=== PATIENT | female | born 1950 | race Caucasian/White ===

== ENCOUNTER 2018-09-24 13:25 | Emergency (ER) | payer OTHER, MEDICARE, SELFPAY ==
[2018-09-24 13:53] VITALS: BP 130/73; PULSE 62; RESP 16; TEMP 36.7; O2SAT 97; BMI 19.9
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
[2018-09-24 17:08] VITALS: BP 139/88; PULSE 55; RESP 14; O2SAT 97
== END 2018-09-24 18:07 | disposition home or self-care (01) ==
PROVIDERS: Emergency Provider Internal Medicine
DX: S13.4XXA Sprain of ligaments of cervical spine, initial encounter (principal); V49.40XA Driver injured in collision with unspecified motor vehicles in traffic accident, initial encounter
CPT/HCPCS: 72040; 99282; 99283

== ENCOUNTER → 2019-09-06 17:16 | Outpatient (ROUT) | payer MEDICARE, OTHER, SELFPAY ==
[2019-09-06 17:34] LABS: Alanine Aminotransferase 20 IU/L (<35); Albumin 4.4 g/dL (3.5-5.0); Albumin Globulin Ratio 1.4 (1.0-2.8); Alkaline Phosphatase 82 U/L (38-126); Aspartate Aminotransferase 31 IU/L (14-36); Bilirubin Total 0.5 mg/dL (0.2-1.3); Blood Urea Nitrogen 17 mg/dL (7-17); Calcium 9.6 mg/dL (8.4-10.2); Carbon Dioxide 30 mmol/L (22-32); Chloride 96 mmol/L (98-107); Cholesterol 212 mg/dL (140-199); Estimated Glomerular Filt Rate > 60.0 mL/min (>60); Globulin 3.1 g/dL (1.7-4.1); Glucose 87 mg/dL (80-110); HDL Cholesterol 103 mg/dL (40-60); HEMOLYSIS 23 (0-50); LDL Cholesterol Calculated 99 mg/dL (<100); Potassium 4.5 mmol/L (3.4-5.1); Sodium 133 mmol/L (137-145); Total Protein 7.5 g/dL (6.3-8.2); Triglycerides 48 mg/dL (35-150)
[2019-09-06 17:36] LABS: Hematocrit 41.2 % (36-46); Mean Corpuscular Hemoglobin 29.6 PG (26-34); Platelet Count 304 X10^3/uL (150-400); Red Blood Cell Count 4.73 X10^6/uL (4.0-5.2); White Blood Cell Count 3.3 X10^3/uL (4.5-11.0)
[2019-09-06 17:51] LABS: Vitamin D 25 Hydroxy (D3) 28.8 ng/mL (30.0-100.0)
[2019-09-06 18:04] LABS: TSH w/ Reflex to FT4 0.54 uIU/mL (0.47-4.68)
[2019-09-06 19:15] LABS: Neutrophils Absolute Manual 1782 /uL (3000-5900); RBC Morphology Normal Morphology; Total Cells Counted 100
== END ==
PROVIDERS: Visit Provider Internal Medicine
DX: Z13.220 Encounter for screening for lipoid disorders (principal); I10 Essential (primary) hypertension; R53.83 Other fatigue; E03.9 Hypothyroidism, unspecified; E55.9 Vitamin D deficiency, unspecified
CPT/HCPCS: 80053; 80061; 82306; 84443; 85025

== ENCOUNTER → 2019-10-19 13:51 | Outpatient (CLI) | payer MEDICARE, OTHER, SELFPAY ==
--- NOTE | 2019-10-19 | DI.RAD.S_ITS ---
PROCEDURE: XR CHEST 2V INDICATIONS: COUGH TECHNIQUE: 2 views of the chest were acquired. COMPARISON: None. FINDINGS: Surgical changes and devices: None. Lungs and pleura: Lungs are clear. No pleural effusions or pneumothorax. Mediastinum: Mediastinal contours are normal. Heart size is normal. Bones and chest wall: No suspicious bony abnormalities. Soft tissues appear unremarkable. IMPRESSION: Normal for age, source of current cough symptoms is not seen. Dictated by: Jame Still M.D. on 10/19/2019 at 15:37 Approved by: Jame Still M.D. on 10/19/2019 at 15:37
[2019-10-19 15:48] LABS: BUN Creatinine Ratio 26.7 (6-22); Blood Urea Nitrogen 16 mg/dL (7-17); Calcium 9.2 mg/dL (8.4-10.2); Carbon Dioxide 30 mmol/L (22-32); Chloride 95 mmol/L (98-107); Estimated Glomerular Filt Rate > 60.0 mL/min (>60); Glucose 89 mg/dL (80-110); HEMOLYSIS < 15 (0-50); Potassium 3.8 mmol/L (3.4-5.1); Sodium 134 mmol/L (137-145)
[2019-10-19 16:11] LABS: Free T4, Direct Thyroxine 1.26 ng/dL (0.78-2.19)
[2019-10-19 16:26] LABS: TSH w/ Reflex to FT4 1.26 uIU/mL (0.47-4.68)
[2019-10-19 17:22] LABS: Sodium Urine Random 45 mmol/L (30-90)
[2019-10-21 15:03] LABS: Triiodothyronine T3 Total 63 ng/dL (76-181)
[2019-10-22 08:29] LABS: Osmolality, Serum 278 mOsm/kg (278-305)
[2019-10-22 08:30] LABS: Osmolality Urine 519 mOsm/kg (50-1200)
== END ==
PROVIDERS: PCP Internal Medicine; Referring Provider Internal Medicine; Visit Provider Internal Medicine
DX: R05 Cough (principal); E03.9 Hypothyroidism, unspecified; E87.1 Hypo-osmolality and hyponatremia
CPT/HCPCS: 36415; 71046; 80048; 83930; 83935; 84300; 84439; 84443; 84480

== ENCOUNTER → 2020-07-04 10:58 | Outpatient (CLI) | payer MEDICARE, OTHER, SELFPAY ==
--- NOTE | 2020-07-04 | DI.RAD.S_ITS ---
PROCEDURE: XR ANKLE RT MIN 3V INDICATIONS: RIGHT ANKLE PAIN TECHNIQUE: 3 views of the ankle were acquired. COMPARISON: None. FINDINGS: Bones: No fractures or dislocations. Ankle mortise is normally aligned. No suspicious bony lesions. Soft tissues: No tibiotalar joint effusion. Achilles tendon appears normal. IMPRESSION: No trauma found, source of current pain is not identified. Dictated by: Jame Still M.D. on 07/04/2020 at 11:56 Approved by: Jame Still M.D. on 07/04/2020 at 11:57
--- NOTE | 2020-07-04 | DI.RAD.S_ITS ---
PROCEDURE: XR FOOT RT MIN 3V INDICATIONS: RIGHT FOOT PAIN TECHNIQUE: 3 views of the foot were acquired. COMPARISON: None. FINDINGS: Bones: No fractures or dislocations. No suspicious bony lesions. There is near severe degenerative osteoarthritic change at the 1st MTP joint, where near [id number] articulation appears present. Soft tissues: No tibiotalar joint effusion. Achilles tendon appears normal. IMPRESSION: No trauma found. 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 Additional [id number] degeneration likely is present at the base of the 1st metatarsal. Dictated by: Jame Still M.D. on 07/04/2020 at 11:55 Approved by: Jame Still M.D. on 07/04/2020 at 11:56
== END ==
PROVIDERS: PCP Internal Medicine; Referring Provider Student in an Organized Health Care Education/Training Program; Visit Provider Student in an Organized Health Care Education/Training Program
DX: M25.571 Pain in right ankle and joints of right foot (principal); M19.071 Primary osteoarthritis, right ankle and foot
CPT/HCPCS: 73610; 73630

== ENCOUNTER → 2020-12-11 18:55 | Outpatient (ROUT) | payer MEDICARE, OTHER, SELFPAY ==
[2020-12-11 19:28] LABS: Alanine Aminotransferase 18 IU/L (<35); Albumin 4.4 g/dL (3.5-5.0); Albumin Globulin Ratio 1.7 (1.0-2.8); Alkaline Phosphatase 73 U/L (38-126); Aspartate Aminotransferase 31 IU/L (14-36); BUN Creatinine Ratio 28.1 (6-22); Bilirubin Total 0.2 mg/dL (0.2-1.3); Blood Urea Nitrogen 16 mg/dL (7-17); C-Reactive Protein Quant < 0.5 mg/dL (<1.0); Calcium 9.7 mg/dL (8.4-10.2); Carbon Dioxide 28 mmol/L (22-32); Chloride 95 mmol/L (98-107); Cholesterol 221 mg/dL (140-199); Estimated Glomerular Filt Rate > 60.0 mL/min (>60); Globulin 2.6 g/dL (1.7-4.1); Glucose 82 mg/dL (80-110); HEMOLYSIS < 15 (0-50); Potassium 3.9 mmol/L (3.4-5.1); Sodium 131 mmol/L (137-145); Triglycerides 50 mg/dL (35-150)
[2020-12-11 19:42] LABS: Erythrocyte Sedimentation Rate 2 MM/HR (0-20)
[2020-12-11 19:56] LABS: HDL Cholesterol 132 mg/dL (40-60); LDL Cholesterol Calculated 79 mg/dL (<100); Rheumatoid Factor < 8.6 IU/mL (<12.0)
[2020-12-11 20:01] LABS: Ferritin 40 ng/mL (11-264); TSH w/ Reflex to FT4 2.02 uIU/mL (0.47-4.68)
[2020-12-11 20:16] LABS: Vitamin B12 > 1000 pg/mL (239-931)
[2020-12-14 15:51] LABS: ANA Screen, IFA Negative (.)
== END ==
PROVIDERS: PCP Internal Medicine; Visit Provider Physician Assistant
DX: M13.0 Polyarthritis, unspecified (principal); I73.00 Raynaud's syndrome without gangrene; E55.9 Vitamin D deficiency, unspecified; I10 Essential (primary) hypertension; E30.9 Disorder of puberty, unspecified; E78.2 Mixed hyperlipidemia; R53.83 Other fatigue
CPT/HCPCS: 80053; 80061; 82306; 82607; 82728; 84443; 85651; 86038; 86140; 86430

== ENCOUNTER 2021-02-23 09:17 | Emergency (ER) | payer MEDICARE, OTHER, SELFPAY ==
[2021-02-23 09:40] VITALS: BP 169/90; PULSE 58; RESP 16; TEMP 36.4; O2SAT 100
[2021-02-23 13:15] VITALS: BP 145/73; PULSE 63; RESP 16; O2SAT 99
--- NOTE | 2021-02-23 13:54 | ED_ITS ---
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 There is no significant bruising or abrasion just laceration. She does not describe any loss of consciousness, there is no headache and she does not have any neck pain. There is no other injuries associated with the slide from bed this morning. Related Data Home Medications Medication Instructions Recorded Confirmed aripiprazole 5 mg tablet 5 mg PO DAILY 09/24/18 09/24/18 bupropion HCl 300 mg 24 hr tablet, 300 mg PO DAILY 09/24/18 09/24/18 extended release clonazepam 0.5 mg tablet 0.5 mg PO DAILY 09/24/18 09/24/18 fluoxetine 20 mg capsule 40 mg PO DAILY 09/24/18 09/24/18 levothyroxine 100 mcg tablet 100 mcg PO DAILY 09/24/18 09/24/18 Allergies Allergy/AdvReac Type Severity Reaction Status Date / Time No Known Drug Allergies Allergy Verified 09/24/18 13:57 Review of Systems Review of Systems Narrative: Remainder of complete review of systems is otherwise unremarkable except for that included in the HPI. Patient History Medical History Hip osteoarthritis Osteoarthritis, hand Scoliosis Surgical History History of toe surgery Family History Other Family history non-contributory Social History Smoking Status: Never smoker Smoking Status: Never smoker alcohol intake frequency: 0-2 drinks per day Substance Use Type: does not use Exam Narrative Exam Narrative: General: Alert appropriate in no acute distress HEENT: Clean laceration 3 cm in length into the muscle layer just to the medial aspect of the left brow. No nasal injury. Respiratory: Able to speak in full sentences, no obvious respiratory distress Skin: No obvious rashes, warm and dry Neurologic: Grossly intact no obvious asymmetries or abnormalities Psych: appropriate insight and affect, cooperative Initial Vital Signs Initial Vital Signs: Vital Signs Temperature 97.5 F L 02/23/21 09:40 Pulse Rate 58 L 02/23/21 09:40 Respiratory Rate 16 02/23/21 09:40 Blood Pressure 169/90 H 02/23/21 09:40 Pulse Oximetry 100 02/23/21 09:40 Procedures Laceration Repair Forehead laceration: Time of procedure: 14:00 Site: face Size (cm): 3 Description: linear Depth: involves muscle layer Amount of anesthesia used (mL): 8 Pre-repair: wound explored Skin layer closed with: other (Absorbable chromic, running subcuticular stitch) Size (cm): 4-0 Subcutaneous layer closed with: chromic gut Size: 4-0 Number of sutures: 1 Technique: other (Horizontal mattress ) Course Vital Signs Vital signs: Vital Signs - 8 hr 02/23/21 09:40 02/23/21 13:15 Temperature 97.5 F L Pulse Rate 58 L 63 Respiratory Rate 16 16 Blood Pressure 169/90 H 145/73 H Pulse Oximetry 100 99 MDM - Fall MDM Narrative Medical decision making narrative: Laceration to the forehead, medial aspect left eyebrow not involving the eyebrow. No other injuries or trauma. Closed without difficulty and Steri-Strips applied for cosmetic results. Patient is reassured. She is safe for home discharge Discharge Plan Departure Patient Disposition: Home Clinical Impression: Laceration of face Qualifiers: Encounter type: initial encounter Qualified Code(s): S01.81XA - Laceration without foreign body of other part of head, initial encounter Instructions: DI for Laceration Repair Activity Restrictions/Additional Instructions: Thank you for coming in today. The cut above your I was deep enough that it was very appropriate to be here. I used 1 deep suture to hold the muscle together and make the scarring as minimal as possible. There are dissolvable sutures just under the skin and then Steri- Strips on top so that the scar is is small as it can possibly be. It is very unusual for wounds in the middle of your face to become infected because there is so much blood flow. If you notice signs of infection with increasing redness, swelling, pain or drainage you do need to be seen and re- evaluated If you notice new or changing symptoms please feel free to return to the ER for further evaluation. It was wonderful to finally be you. Prescriptions: No Action clonazepam 0.5 mg tablet 0.5 mg PO DAILY RF: 0 levothyroxine 100 mcg tablet 100 mcg PO DAILY RF: 0 fluoxetine 20 mg capsule 40 mg PO DAILY RF: 0 aripiprazole 5 mg tablet 5 mg PO DAILY RF: 0 bupropion HCl 300 mg tablet extended release 24 hr 300 mg PO DAILY RF: 0 Referrals: Nida Humphrey PA-C [Primary Care Provider] -
== END 2021-02-23 14:10 | disposition home or self-care (01) ==
PROVIDERS: Emergency Provider Emergency Medicine; PCP Physician Assistant
DX: S01.81XA Laceration without foreign body of other part of head, initial encounter (principal); W22.03XA Walked into furniture, initial encounter
CPT/HCPCS: 12013; 99283

== ENCOUNTER → 2021-08-02 09:41 | Outpatient (CLI) | payer MEDICARE, OTHER, SELFPAY ==
[2021-08-02 11:49] LABS: COVID19 -Nasal RAPID Negative (Negative)
== END ==
PROVIDERS: PCP Physician Assistant; Visit Provider Physician Assistant
DX: Z20.822 Contact with and (suspected) exposure to COVID-19 (principal)
CPT/HCPCS: 87635; C9803

== ENCOUNTER → 2021-10-31 10:23 | Outpatient (CLI) | payer MEDICARE, OTHER, SELFPAY ==
--- NOTE | 2021-10-31 | DI.RAD.S_ITS ---
PROCEDURE: XR CHEST 2V INDICATIONS: Abnormal weight loss TECHNIQUE: 2 views of the chest were acquired. COMPARISON: [facility], CR, XR CHEST 2V, 10/19/2019, 14:21. FINDINGS: Surgical changes and devices: None. Lungs and pleura: Lungs are clear. No pleural effusions or pneumothorax. Mediastinum: Mediastinal contours are normal. Heart size is normal. Bones and chest wall: Dextroscoliosis of the thoracolumbar spine is seen. No suspicious bony abnormalities. Soft tissues appear unremarkable. IMPRESSION: No acute cardiopulmonary abnormality. Dictated by: Regulo Carroll M.D. on 10/31/2021 at 16:22 Approved by: Regulo Carroll M.D. on 10/31/2021 at 16:23
== END ==
PROVIDERS: PCP Physician Assistant; Referring Provider Physician Assistant; Visit Provider Physician Assistant
DX: R63.4 Abnormal weight loss (principal)
CPT/HCPCS: 71046

== ENCOUNTER → 2021-11-12 08:08 | Outpatient (CLI) | payer MEDICARE, OTHER, SELFPAY ==
--- NOTE | 2021-11-12 | DI.MG.S_ITS ---
BILATERAL DIGITAL SCREENING MAMMOGRAM 3D/2D WITH CAD WITH AUGMENTATION: 11/12/2021 CLINICAL: Patient presents for routine screening. S/P bilateral augmentation. Comparison is made to exams dated: 10/13/2018 mammogram, 12/05/2016 mammogram, and 04/02/2016 mammogram - outside location. The tissue of both breasts is extremely dense, which lowers the sensitivity of mammography. Current study was also evaluated with a Computer Aided Detection (CAD) system. Bilateral breast implants are stable and intact. No significant masses, calcifications, or other findings are seen in either breast. There has been no significant interval change. IMPRESSION: NEGATIVE There is no mammographic evidence of malignancy. A 1 year screening mammogram is recommended. This exam was interpreted at Station ID: [id number]. NOTE: For mammograms, a report in lay terms will be sent to the patient. Approximately 15% of breast malignancies will not be visualized mammographically. In the management of a palpable breast mass, a negative mammogram must not discourage biopsy of a clinically suspicious lesion. Electronically Signed By: Cassidy washington/manoj:11/12/2021 14:49:23 letter sent: Normal Exam ACR BI-RADS Category 1: Negative [id number]
== END ==
PROVIDERS: PCP Physician Assistant; Referring Provider Physician Assistant; Visit Provider Physician Assistant
DX: Z12.31 Encounter for screening mammogram for malignant neoplasm of breast (principal); Z98.82 Breast implant status
CPT/HCPCS: 77063; 77067

== ENCOUNTER 2022-05-08 14:01 | Emergency (ER) | payer MEDICARE, OTHER, SELFPAY ==
[2022-05-08 14:20] VITALS: BP 171/81; PULSE 61; RESP 18; TEMP 36.6; O2SAT 100; BMI 19.5
--- NOTE | 2022-05-08 14:46 | DI.RAD.S_ITS ---
PROCEDURE: XR LUMBAR SPINE 2-3V INDICATIONS: fall TECHNIQUE: 3 views of the lumbar spine were acquired. COMPARISON: None. FINDINGS: Bones: 5 [id number] vertebrae are present. There is mild rightward curvature of lumbar spine centered at L3 level. Straightening of normal lumbar lordosis is seen. 4 millimeter retrolisthesis of L2 on L3 and L3 on L4 is seen. Degenerative endplate changes are noted throughout lumbar spine more prominent at L4-5 level. No vertebral body compression fractures. No suspicious bony lesions. Soft tissues: Overlying bowel gas pattern is normal. No suspicious soft tissue calcifications. IMPRESSION: Degenerative disc disease throughout lumbar spine. No acute compression fracture. Grade 1 retrolisthesis at L2-3 and L3-4 levels. Dictated by: Marquise Marcus M.D. on 05/08/2022 at 15:25 Approved by: Marquise Marcus M.D. on 05/08/2022 at 15:25
--- NOTE | 2022-05-08 15:58 | ED_ITS ---
HPI - Back Pain/Injury <ELOISE Duffy - Last Filed: 05/08/22 20:31> General Chief Complaint: Back Pain/Injury Stated Complaint: Pain in tailbone/buttocks/legs- ref by PT Time Seen by Provider: 05/08/22 14:44 Source: patient History of Present Illness HPI Narrative: This is a 71-year-old female presents to the emergency department with worsening low back pain and bilateral upper leg thigh spasms at night since a fall on 04/23/2022. Patient states that her physical therapist alma at [facility] recommended that she come in for evaluation. Patient denies any weakness but she states that she has muscle spasms in the anterior thighs bilaterally, denies any point tenderness along her lumbar spine, denies any saddle anesthesia, denies any incontinence which is new or new sensation changes. Related Data Home Medications Medication Instructions Recorded Confirmed aripiprazole 5 mg tablet 5 mg PO DAILY 09/24/18 09/24/18 bupropion HCl 300 mg 24 hr tablet, 300 mg PO DAILY 09/24/18 09/24/18 extended release clonazepam 0.5 mg tablet 0.5 mg PO DAILY 09/24/18 09/24/18 fluoxetine 20 mg capsule 40 mg PO DAILY 09/24/18 05/08/22 levothyroxine 100 mcg tablet 100 mcg PO DAILY 09/24/18 05/08/22 lisinopril 20 mg tablet mg 05/08/22 modafinil 100 mg tablet mg 05/08/22 Previous Rx's Medication Instructions Recorded diclofenac sodium 1 % topical gel 2 g topical QID PRN pain #100 grams 05/08/22 hydrocodone 5 mg-acetaminophen 325 1 tab PO BID PRN pain #10 tabs 05/08/22 mg tablet methocarbamol 500 mg tablet 500 mg PO BEDTIME #20 tabs 05/08/22 Allergies Allergy/AdvReac Type Severity Reaction Status Date / Time No Known Drug Allergies Allergy Verified 05/08/22 14:44 Review of Systems <ELOISE Duffy - Last Filed: 05/08/22 20:31> Review of Systems Narrative: Review of systems is negative for acute abnormalities unless otherwise noted in HPI Patient History <ELOISE Duffy - Last Filed: 05/08/22 20:31> Medical History Hip osteoarthritis Osteoarthritis, hand Scoliosis Surgical History History of toe surgery Family History Other Family history non-contributory Social History Smoking Status: Never smoker Smoking Status: Never smoker alcohol intake frequency: 0-2 drinks per day Substance Use Type: does not use Exam <ELOISE Duffy - Last Filed: 05/08/22 20:31> Narrative Exam Narrative: Reviewed vitals signs and nursing notes. General: cooperative, comfortable, in no acute distress, well groomed afebrile, HEENT: symmetrical facial expressions, moist mucous membranes Cardiovascular: regular rate and rhythm, no peripheral edema, warm extremities Respiratory: normal effort, able to speak in complete sentences, without wheezing, stridor, or abnormal breath sounds. No retractions or tachypnea. GI: abdomen soft, nontender to palpation, nondistended, without masses, rebound tenderness or exquisite tenderness with exam. MSK: moves all extremities, neurovascularly intact, no weakness, normal tone, left leg lift elicits anterior thigh pain in the left leg, right leg lift elicits anterior right thigh pain. No point tenderness along lumbar spine, sensation to lower extremities is equal bilaterally, without weakness Skin: brisk capillary refill, without pallor or erythema Neuro: normal speech and cognition, A&O x3, ambulatory, clear speech Psych: mental status is grossly normal, congruent mood, normal affect, pleasant and cooperative Initial Vital Signs Initial Vital Signs: Vital Signs Temperature 98 F 05/08/22 14:20 Pulse Rate 61 05/08/22 14:20 Respiratory Rate 18 05/08/22 14:20 Blood Pressure 171/81 H 05/08/22 14:20 Pulse Oximetry 100 05/08/22 14:20 Oxygen Delivery Method 05/08/22 14:20 <Anastasiya Ramirez DO - Last Filed: 05/13/22 07:29> Initial Vital Signs Initial Vital Signs: Vital Signs Temperature 98 F 05/08/22 14:20 Pulse Rate 61 05/08/22 14:20 Respiratory Rate 18 05/08/22 14:20 Blood Pressure 171/81 H 05/08/22 14:20 Pulse Oximetry 100 05/08/22 14:20 Oxygen Delivery Method 05/08/22 14:20 Course <ELOISE Duffy - Last Filed: 05/08/22 20:31> Orders Ordered: Discontinued Medications Hydrocodone Bitart/Acetaminophen (Hydrocodone/Acet 5/325 Tablet) 1 tab PO NOW ONE Stop: 05/08/22 16:01 Last Admin: 05/08/22 16:24 Dose: Not Given Documented By: CAROLYN Diazepam (Diazepam 2 Mg Tablet) 2 mg PO NOW ONE Stop: 05/08/22 16:02 Last Admin: 05/08/22 16:24 Dose: Not Given Documented By: CAROLYN Ketorolac Tromethamine (Ketorolac 30 Mg/Ml Vial) 15 mg IM NOW ONE Stop: 05/08/22 16:01 Last Admin: 05/08/22 16:23 Dose: 15 mg Documented By: CAROLYN Lidocaine (Lidocaine Patch 1 Each Adh..Patch) 1 each TOP NOW ONE Stop: 05/08/22 16:01 Last Admin: 05/08/22 16:23 Dose: 1 each Documented By: CAROLYN Vital Signs Vital signs: Vital Signs - 8 hr 05/08/22 14:20 05/08/22 16:45 Temperature 98 F Pulse Rate 61 65 Respiratory Rate 18 17 Blood Pressure 171/81 H 156/76 H Pulse Oximetry 100 98 Oxygen Delivery Method Room Air Room Air <Anastasiya Ramirez DO - Last Filed: 05/13/22 07:29> Orders Ordered: Discontinued Medications Hydrocodone Bitart/Acetaminophen (Hydrocodone/Acet 5/325 Tablet) 1 tab PO NOW ONE Stop: 05/08/22 16:01 Last Admin: 05/08/22 16:24 Dose: Not Given Documented By: CAROLYN Diazepam (Diazepam 2 Mg Tablet) 2 mg PO NOW ONE Stop: 05/08/22 16:02 Last Admin: 05/08/22 16:24 Dose: Not Given Documented By: CAROLYN Ketorolac Tromethamine (Ketorolac 30 Mg/Ml Vial) 15 mg IM NOW ONE Stop: 05/08/22 16:01 Last Admin: 05/08/22 16:23 Dose: 15 mg Documented By: CAROLYN Lidocaine (Lidocaine Patch 1 Each Adh..Patch) 1 each TOP NOW ONE Stop: 05/08/22 16:01 Last Admin: 05/08/22 16:23 Dose: 1 each Documented By: CAROLYN Vital Signs Vital signs: Vital Signs - 8 hr 05/08/22 14:20 05/08/22 16:45 Temperature 98 F Pulse Rate 61 65 Respiratory Rate 18 17 Blood Pressure 171/81 H 156/76 H Pulse Oximetry 100 98 Oxygen Delivery Method Room Air Room Air [facility] - Back Pain/Injury <Samanta Gallo, [facility] - Last Filed: 05/08/22 20:31> Imaging Data Lumbar XR: Radiologist's Impression: PROCEDURE:? XR LUMBAR SPINE 2-3V ? INDICATIONS:? fall ? TECHNIQUE:? 3 views of the lumbar spine were acquired.? ? COMPARISON:? None. ? FINDINGS:? ? Bones:? 5 [id number] vertebrae are present.? There is mild rightward curvature of lumbar spine centered at L3 level.? Straightening of normal lumbar lordosis is seen.? 4 millimeter retrolisthesis of L2 on L3 and L3 on L4 is seen.? Degenerative endplate changes are noted throughout lumbar spine more prominent at L4-5 level.? No vertebral body compression fractures.? No suspicious bony lesions.? ? Soft tissues:? Overlying bowel gas pattern is normal.? No suspicious soft tissue calcifications.? ? ? IMPRESSION:? Degenerative disc disease throughout lumbar spine.? No acute compression fracture.? Grade 1 retrolisthesis at L2-3 and L3-4 levels. ? ? Dictated by: Marquise Marcus M.D. on 05/08/2022 at 15:25 ? ? Approved by: Marquise Marcus M.D. on 05/08/2022 at 15:25 ? [facility] Narrative Medical decision making narrative: This is a 71-year-old female presents to the emergency department with worsening low back pain, radiation to bilateral hip pain and has a history of right hip arthroplasty. Patient had a fall onto her buttocks on 04/23/22 and presents today with pain elicited with left leg lift to her anterior left thigh and right leg lift illicits right anterior thigh pain. She denies any saddle anesthesia, muscle weakness in her lower extremities, new incontinence, point tenderness along her lumbar spine to palpation. Her x-ray of lumbar spine shows degenerative disc disease throughout lumbar spine with out compression fracture, grade 1 retrolisthesis at L2-3 and L3-4 levels. Patient has full flexion and extension of her bilateral hips, knees, dorsiflexion of her feet and toe extension with flexion without deficit. She denies numbness between her 1st and 2nd toe or the dorsum of her feet bilaterally. Patient was given Toradol, and a lidocaine patch in the emergency department. She declined her hydrocodone and diazepam due to driving. She was prescribed hydrocodone, ketorolac, methocarbamol as needed for her acute low back pain with radiculopathy. Encouraged her to follow-up at [facility] if she has worsening of her symptoms. I also encouraged her to avoid physical therapy until her symptoms improve and to not over exert herself in the near future. She will follow-up with alma Edwards in [place]. Given history and exam, suspect likely musculoskeletal etiology, they are nontoxic appearing with no overt risk factors for epidural hematoma or abscess. No overt evidence of critical cord compression and has a nonfocal neuro exam. Neurovascularly intact distally, no evidence of infection, peritoneal signs, hypertensive crisis, or abdominal pain with low suspicion for AAA. No weakness, incontinence, neurovascular or sensation changes, no concerning findings for caudal equina syndrome, lumbar fracture, without paresthesia, neuropathic pain, meningeal signs and fever. This could be a herniated disk, paraspinal or other muscle strain, ligamental injury, arthritic, nephrolithiasis/pyelonephritis, epidural abscess, chronic pain, and other diagnosis? considered less likely. Discharge Plan Departure Patient Disposition: Home Clinical Impression: Sciatica, Strain of lumbar region, Retrolisthesis of vertebrae, DDD (degenerative disc disease), lumbar, Fall Instructions: DI for Back Pain With Sciatica Activity Restrictions/Additional Instructions: *You have been diagnosed with a fall with exacerbation nerve root likely between L2 and 3 where you have mild retrolisthesis of your lumbar spine, and secondary inflammation due to degenerative disc disease of your lumbar spine/AKA arthritis. Please use topical anti-inflammatories or CBD cream whichever is most comfortable for you. Take half to 1 tab of methocarbamol at night or when you have muscle spasms. This will be helpful but can make you feel tired. Please do not take it at the same time as your clonazepam, you may take hydrocodone as needed throughout the day for severe pain, Toradol every 8 hours for inflammation and pain, take with food and water. This will be the most helpful and hopefully calm down the nerve root. Please follow-up with your primary care provider as needed for outpatient resources. You can call [facility] and set an appointment up for follow-up if your symptoms are ongoing beyond today. Retrolisthesis is sometimes called a slipped disc, imaging does not show any herniation of the disc but often times nerve roots can be irritated due to that as well. Hope you feel better soon, please come back for worsening, numbness of your groin, new incontinence, sensation changes in your lower legs or muscle weakness. Please wait 1 week before following up with Alma at [facility]. *What to do: *Please continue to take your regular medications as directed. [ x] New medication prescriptions sent to your pharmacy: [ ] [ ] New medication written as a paper prescription [ ] No new medications given *Please follow up with your primary care provider in 2-3 days, call for an appointment. Let them know you were seen in the Emergency Department and that we asked that you be seen for follow-up. We will electronically transmit a record of today's note if your PCP is in our system *If you do not have a primary care provider please contact [phone] to establish care with one of [facility] primary care providers. *Return to Emergency Department if you should have any new, worsening, or concerning symptoms, such as [fever greater than 101F, chills, worsening pain, persistent vomiting or other bothersome symptoms]. Prescriptions: New methocarbamol 500 mg tablet 500 mg PO BEDTIME Qty: 20 0RF hydrocodone-acetaminophen 5-325 mg tablet 1 tab PO BID PRN (Reason: pain) Qty: 10 0RF diclofenac sodium 1 % gel 2 g topical QID PRN (Reason: pain) Qty: 100 0RF Rx Instructions: to area of pain No Action lisinopril 20 mg Tablet modafinil 100 mg Tablet clonazepam 0.5 mg tablet 0.5 mg PO DAILY levothyroxine 100 mcg tablet 100 mcg PO DAILY fluoxetine 20 mg capsule 40 mg PO DAILY aripiprazole 5 mg tablet 5 mg PO DAILY bupropion HCl 300 mg tablet extended release 24 hr 300 mg PO DAILY Referrals: [facility] [Provider Group] JULIANNA Castaneda [Outside] Nida Humphrey PA-C [Primary Care Provider] - Visit Report Forms: Patient Portal/API <Anastasiya Ramirez DO - Last Filed: 05/13/22 07:29> Cosign ED Attending Bambi Attestation: I was immediately available in the department for consultation. Documentation has been reviewed. I agree with assessment and plan.
[2022-05-08] MEDS: LIDOCAINE PATCH 1 EACH ADH..PATCH TOP (16:23)
[2022-05-08] MEDS: KETOROLAC 30 MG/ML VIAL 15 MG IM (16:23)
[2022-05-08 16:45] VITALS: BP 156/76; PULSE 65; RESP 17; O2SAT 98
== END 2022-05-08 16:45 | disposition home or self-care (01) ==
PROVIDERS: Emergency Provider Nurse Practitioner Critical Care Medicine; PCP Physician Assistant
DX: S39.012A Strain of muscle, fascia and tendon of lower back, initial encounter (principal); M51.36 Other intervertebral disc degeneration, lumbar region; M54.41 Lumbago with sciatica, right side; M43.16 Spondylolisthesis, lumbar region; W19.XXXA Unspecified fall, initial encounter
CPT/HCPCS: 72100; 96372; 99283; 99284; J1885

== ENCOUNTER 2022-09-26 11:50 | Emergency (ER) | payer MEDICARE, OTHER, SELFPAY ==
[2022-09-26] VITALS (9 sets, daily range): BP systolic 123–157; BP diastolic 66–74; PULSE 52–64; RESP 16–31; TEMP 36.2; O2SAT 93–100; BMI 20.7
--- NOTE | 2022-09-26 11:54 | DI.RAD.S_ITS ---
PROCEDURE: XR CHEST 1V INDICATIONS: chest pain TECHNIQUE: One view of the chest was acquired. COMPARISON: [facility], CR, XR CHEST 2V, 10/31/2021, 11:39. FINDINGS: Surgical changes and devices: None. Lungs and pleura: Lungs are clear. No pleural effusions or pneumothorax. Mediastinum: Mediastinal contours appear normal. Heart size is normal. Bones and chest wall: No suspicious bony lesions. Overlying soft tissues appear unremarkable. IMPRESSION: No acute pulmonary process. Dictated by: Angeles Fonseca M.D. on 09/26/2022 at 12:24 Approved by: Angeles Fonseca M.D. on 09/26/2022 at 12:24
[2022-09-26 12:04] LABS: Add Manual Diff / Slide Review NO; Basophils Absolute Auto 0 /uL (0-100); Basophils Percent Auto 0.4 % (0-2); Eosinophils Absolute Auto 100 /uL (0-450); Eosinophils Percent Auto 1.5 % (2-4); Hematocrit 43.3 % (36-46); Hemoglobin 14.8 g/dL (12.0-16.0); Lymphocytes Absolute Auto 1300 /uL (1100-4500); Lymphocytes Percent Auto 35.4 % (25-40); Mean Corpuscular HGB Conc 34.2 % (30-36); Mean Corpuscular Hemoglobin 31.3 PG (26-34); Mean Corpuscular Volume 91.4 fL (80-100); Monocytes Absolute Auto 400 /uL (0-900); Monocytes Percent Auto 11.6 % (3-14); Neutrophils Absolute Auto 1800 /uL (1500-7000); Neutrophils Percent Auto 51.1 % (50-75); Platelet Count 275 X10^3/uL (150-400); Prothrombin Time 11.1 SECONDS (10.1-12.7); Red Blood Cell Count 4.74 X10^6/uL (4.0-5.2); Red Cell Distribution Width 12.5 % (11.6-14.8); White Blood Cell Count 3.6 X10^3/uL (4.5-11.0)
[2022-09-26 12:07] LABS: PTT Partial Thromboplastin Tim 24 SECONDS (26-36)
[2022-09-26 12:09] LABS: Alanine Aminotransferase 22 IU/L (<35); Albumin 4.9 g/dL (3.5-5.0); Albumin Globulin Ratio 1.6 (1.0-2.8); Alkaline Phosphatase 87 U/L (38-126); Aspartate Aminotransferase 28 IU/L (14-36); BUN Creatinine Ratio 17.5 (6-22); Bilirubin Total 0.7 mg/dL (0.2-1.3); Blood Urea Nitrogen 11 mg/dL (7-17); Calcium 9.8 mg/dL (8.4-10.2); Carbon Dioxide 23 mmol/L (22-32); Chloride 93 mmol/L (98-107); Creatine Kinase 63 U/L (30-135); Estimated Glomerular Filt Rate > 60 mL/min (>60); Globulin 3.1 g/dL (1.7-4.1); Glucose 110 mg/dL (80-110); HEMOLYSIS 25 (0-50); Lipase 149 U/L (23-300); Magnesium 1.7 mg/dL (1.6-2.3); Potassium 3.8 mmol/L (3.4-5.1); Sodium 131 mmol/L (137-145)
[2022-09-26 12:20] LABS: Troponin I < 0.012 ng/mL (0.01-0.034)
[2022-09-26] MEDS: clonazePAM 0.5 MG TABLET PO (13:00)
[2022-09-26] MEDS: LIDOCAINE PATCH 1 EACH ADH..PATCH TOP (13:02)
--- NOTE | 2022-09-26 13:02 | ED.CHESTPAIN ---
HPI - Chest Pain <Samanta Gallo [facility] - Last Filed: 09/26/22 17:21> General Chief Complaint: Chest Pain Stated Complaint: Chest/ Back pain Time Seen by Provider: 09/26/22 12:21 History of Present Illness HPI narrative: This 72-year-old female with history of hypothyroidism, depression, anxiety and chronic back pain who presents to the emergency department with her daughter/caregiver complaining of worsening low back pain with radiation to her right hip, states that she has had increased anxiety related to this pain. All of this pain started with a fall in April 2022 and she was seen in the emergency department that day by myself. Patient has not had recent antibiotics or recent steroids. Patient has been taking 40 mg of Prozac recently after this was titrated down from 64 patient feeling better, states that she took 62 days ago and felt more disoriented than usual that day. She denies dysuria but endorses urinary frequency and urgency. States that she voids frequently. She is having back spasms states that this pain goes into her right hip but does not go down her leg. She has a history. Of scoliosis, she is not anticoagulated. She is ambulatory at home and does use a walker as needed. She and her caregiver deny any recent fever, chills, nausea, vomiting, flank pain, stool changes, or other mental status changes. Patient states that she has been having to lie still more often because of her back pain. She is not currently in physical therapy, she has an appointment in October and that was the next available. She does not receive home health and states that she is not been doing her walking or staying as active as she used to. Denies any recent trauma Related Data Home Medications Medication Instructions Recorded Confirmed aripiprazole 5 mg tablet 5 mg PO DAILY 09/24/18 09/24/18 bupropion HCl 300 mg 24 hr tablet, 300 mg PO DAILY 09/24/18 09/24/18 extended release clonazepam 0.5 mg tablet 0.5 mg PO DAILY 09/24/18 09/24/18 fluoxetine 20 mg capsule 40 mg PO DAILY 09/24/18 05/08/22 levothyroxine 100 mcg tablet 100 mcg PO DAILY 09/24/18 05/08/22 lisinopril 20 mg tablet mg 05/08/22 modafinil 100 mg tablet mg 05/08/22 Previous Rx's Medication Instructions Recorded diclofenac sodium 1 % topical gel 2 g topical QID PRN pain #100 grams 05/08/22 hydrocodone 5 mg-acetaminophen 325 1 tab PO BID PRN pain #10 tabs 05/08/22 mg tablet methocarbamol 500 mg tablet 500 mg PO BEDTIME #20 tabs 05/08/22 aripiprazole 2 mg tablet (Abilify) 2 mg PO DAILY #30 tabs 09/26/22 hydrocodone 5 mg-acetaminophen 325 0.5 tab PO TID PRN pain #10 tabs 09/26/22 mg tablet ibuprofen 400 mg tablet 400 mg PO Q8H PRN fever or pain 09/26/22 #60 tabs lidocaine 5 % topical patch 1 patch topical DAILY #15 ea 09/26/22 (Lidoderm) methocarbamol 500 mg tablet 250 - 500 mg PO TID PRN spasm #20 09/26/22 tabs prednisone 20 mg tablet 20 mg PO DAILY #4 tabs 09/26/22 Allergies Allergy/AdvReac Type Severity Reaction Status Date / Time No Known Drug Allergies Allergy Verified 05/08/22 14:44 Review of Systems <ELOISE uDffy - Last Filed: 09/26/22 17:21> Review of Systems ROS Unobtainable: All systems reviewed & are unremarkable except as noted in HPI and below Patient History <ELOISE Duffy - Last Filed: 09/26/22 17:21> Medical History Hip osteoarthritis Osteoarthritis, hand Scoliosis Surgical History History of toe surgery Family History Other Family history non-contributory Social History Smoking Status: Never smoker Smoking Status: Never smoker alcohol intake frequency: 0-2 drinks per day Substance Use Type: does not use Exam <ELOISE Duffy - Last Filed: 09/26/22 17:21> Initial Vital Signs Initial Vital Signs: Vital Signs Pulse Rate 64 09/26/22 11:50 Pulse Oximetry 100 09/26/22 11:50 <Adonis Sow DO - Last Filed: 09/26/22 17:29> Initial Vital Signs Initial Vital Signs: Vital Signs Pulse Rate 64 09/26/22 11:50 Pulse Oximetry 100 09/26/22 11:50 Course <ELOISE Duffy - Last Filed: 09/26/22 17:21> Orders Ordered: ED Orders 09/26/22 11:50 Complete Blood Count AUTO DIFF Stat Comprehensive Metabolic Panel Stat Lipase Stat Magnesium Stat Partial Thromboplastin Time Stat Prothrombin Time INR Stat Troponin & CK Cardiac Panel Stat 09/26/22 11:54 XR chest 1V Stat 09/26/22 11:57 EKG-12 Lead Stat 09/26/22 13:25 Urine Microscopic Stat Discontinued Medications Acetaminophen (Acetaminophen 325 Mg Tablet) 650 mg PO NOW ONE Stop: 09/26/22 12:46 Last Admin: 09/26/22 13:04 Dose: Not Given Documented By: AT Hydrocodone Bitart/Acetaminophen (Hydrocodone/Acet 5/325 Tablet) 0.5 tab PO NOW ONE Stop: 09/26/22 12:46 Last Admin: 09/26/22 13:05 Dose: Not Given Documented By: AT Clonazepam (Clonazepam 0.5 Mg Tablet) 0.5 mg PO NOW ONE Stop: 09/26/22 12:40 Last Admin: 09/26/22 13:00 Dose: 0.5 mg Documented By: AT Ketorolac Tromethamine (Ketorolac 30 Mg/Ml Vial) 15 mg IV NOW ONE Stop: 09/26/22 12:40 Last Admin: 09/26/22 13:06 Dose: 15 mg Documented By: AT Lidocaine (Lidocaine Patch 1 Each Adh..Patch) 1 each TOP NOW ONE Stop: 09/26/22 12:40 Last Admin: 09/26/22 13:02 Dose: 1 each Documented By: AT Methocarbamol (Methocarbamol 500 Mg Tablet) 500 mg PO NOW ONE Stop: 09/26/22 12:40 Last Admin: 09/26/22 13:05 Dose: Not Given Documented By: KB Methocarbamol (Methocarbamol 500 Mg Tablet) 250 mg PO NOW ONE Stop: 09/26/22 12:40 Last Admin: 09/26/22 13:12 Dose: 250 mg Documented By: AT Prednisone (Prednisone 20 Mg Tablet) 20 mg PO NOW ONE Stop: 09/26/22 12:40 Last Admin: 09/26/22 13:12 Dose: 20 mg Documented By: AT Vital Signs Vital signs: Vital Signs - 8 hr 09/26/22 11:51 09/26/22 11:50 09/26/22 12:00 Temperature 97.2 F L Pulse Rate 64 64 Respiratory Rate 16 Blood Pressure 157/74 H 140/71 Pulse Oximetry 100 100 Oxygen Delivery Method Room Air 09/26/22 12:00 09/26/22 12:30 09/26/22 12:30 Temperature Pulse Rate 59 L 61 Respiratory Rate 25 H 22 Blood Pressure 144/66 H Pulse Oximetry 100 97 Oxygen Delivery Method Room Air 09/26/22 13:00 09/26/22 13:01 09/26/22 13:01 Temperature Pulse Rate 64 64 Respiratory Rate 31 H Blood Pressure 148/73 H Pulse Oximetry 99 99 Oxygen Delivery Method Room Air 09/26/22 13:27 09/26/22 13:27 09/26/22 13:30 Temperature Pulse Rate 52 L Respiratory Rate 21 Blood Pressure 137/67 135/70 Pulse Oximetry 98 Oxygen Delivery Method 09/26/22 13:30 09/26/22 14:00 09/26/22 14:00 Temperature Pulse Rate 54 L 53 L Respiratory Rate 30 H Blood Pressure 123/69 Pulse Oximetry 99 93 Oxygen Delivery Method Room Air <Adonis Sow DO - Last Filed: 09/26/22 17:29> Orders Ordered: ED Orders 09/26/22 11:50 Complete Blood Count AUTO DIFF Stat Comprehensive Metabolic Panel Stat Lipase Stat Magnesium Stat Partial Thromboplastin Time Stat Prothrombin Time INR Stat Troponin & CK Cardiac Panel Stat 09/26/22 11:54 XR chest 1V Stat 09/26/22 11:57 EKG-12 Lead Stat 09/26/22 13:25 Urine Microscopic Stat Discontinued Medications Acetaminophen (Acetaminophen 325 Mg Tablet) 650 mg PO NOW ONE Stop: 09/26/22 12:46 Last Admin: 09/26/22 13:04 Dose: Not Given Documented By: AT Hydrocodone Bitart/Acetaminophen (Hydrocodone/Acet 5/325 Tablet) 0.5 tab PO NOW ONE Stop: 09/26/22 12:46 Last Admin: 09/26/22 13:05 Dose: Not Given Documented By: AT Clonazepam (Clonazepam 0.5 Mg Tablet) 0.5 mg PO NOW ONE Stop: 09/26/22 12:40 Last Admin: 09/26/22 13:00 Dose: 0.5 mg Documented By: AT Ketorolac Tromethamine (Ketorolac 30 Mg/Ml Vial) 15 mg IV NOW ONE Stop: 09/26/22 12:40 Last Admin: 09/26/22 13:06 Dose: 15 mg Documented By: AT Lidocaine (Lidocaine Patch 1 Each Adh..Patch) 1 each TOP NOW ONE Stop: 09/26/22 12:40 Last Admin: 09/26/22 13:02 Dose: 1 each Documented By: AT Methocarbamol (Methocarbamol 500 Mg Tablet) 500 mg PO NOW ONE Stop: 09/26/22 12:40 Last Admin: 09/26/22 13:05 Dose: Not Given Documented By: KB Methocarbamol (Methocarbamol 500 Mg Tablet) 250 mg PO NOW ONE Stop: 09/26/22 12:40 Last Admin: 09/26/22 13:12 Dose: 250 mg Documented By: AT Prednisone (Prednisone 20 Mg Tablet) 20 mg PO NOW ONE Stop: 09/26/22 12:40 Last Admin: 09/26/22 13:12 Dose: 20 mg Documented By: AT Vital Signs Vital signs: Vital Signs - 8 hr 09/26/22 11:51 09/26/22 11:50 09/26/22 12:00 Temperature 97.2 F L Pulse Rate 64 64 Respiratory Rate 16 Blood Pressure 157/74 H 140/71 Pulse Oximetry 100 100 Oxygen Delivery Method Room Air 09/26/22 12:00 09/26/22 12:30 09/26/22 12:30 Temperature Pulse Rate 59 L 61 Respiratory Rate 25 H 22 Blood Pressure 144/66 H Pulse Oximetry 100 97 Oxygen Delivery Method Room Air 09/26/22 13:00 09/26/22 13:01 09/26/22 13:01 Temperature Pulse Rate 64 64 Respiratory Rate 31 H Blood Pressure 148/73 H Pulse Oximetry 99 99 Oxygen Delivery Method Room Air 09/26/22 13:27 09/26/22 13:27 09/26/22 13:30 Temperature Pulse Rate 52 L Respiratory Rate 21 Blood Pressure 137/67 135/70 Pulse Oximetry 98 Oxygen Delivery Method 09/26/22 13:30 09/26/22 14:00 09/26/22 14:00 Temperature Pulse Rate 54 L 53 L Respiratory Rate 30 H Blood Pressure 123/69 Pulse Oximetry 99 93 Oxygen Delivery Method Room Air MDM - Chest Pain <Samanta Gallo, [facility] - Last Filed: 09/26/22 17:21> Lab Data 09/26/22 11:50 09/26/22 11:50 Labs: Lab Results 09/26/22 09/26/22 09/26/22 Range/Units 11:50 11:50 11:50 WBC 3.6 L (4.5-11.0) X10^3/uL RBC 4.74 (4.0-5.2) X10^6/uL Hgb 14.8 (12.0-16.0) g/dL Hct 43.3 (36-46) % MCV 91.4 (80-100) fL MCH 31.3 (26-34) PG MCHC 34.2 (30-36) % RDW 12.5 (11.6-14.8) % Plt Count 275 (150-400) X10^3/uL Neut % (Auto) 51.1 (50-75) % Lymph % (Auto) 35.4 (25-40) % [place] % (Auto) 11.6 (3-14) % Eos % (Auto) 1.5 L (2-4) % Baso % (Auto) 0.4 (0-2) % Neut # (Auto) 1800 (3428-6845) /uL Lymph # (Auto) 1300 (7803-7617) /uL [place] # (Auto) 400 (0-900) /uL Eos # (Auto) 100 (0-450) /uL Baso # (Auto) 0 (0-100) /uL PT 11.1 (10.1-12.7) SECONDS INR 1.0 (0.9-1.3) APTT 24 L (26-36) SECONDS Sodium 131 L (137-145) mmol/L Potassium 3.8 (3.4-5.1) mmol/L Chloride 93 L (98-107) mmol/L Carbon Dioxide 23 (22-32) mmol/L BUN 11 (7-17) mg/dL Creatinine 0.63 (0.52-1.04) mg/dL Estimated GFR > 60 (>60) mL/min BUN/Creatinine Ratio 17.5 (6-22) Glucose 110 (80-110) mg/dL Calcium 9.8 (8.4-10.2) mg/dL Magnesium 1.7 (1.6-2.3) mg/dL Total Bilirubin 0.7 (0.2-1.3) mg/dL AST 28 (14-36) IU/L ALT 22 (<35) IU/L Alkaline Phosphatase 87 (38-126) U/L Total Creatine Kinase 63 (30-135) U/L CK-MB (CK-2) TNP CK-MB (CK-2) Rel Index TNP Troponin I < 0.012 (0.01-0.034) ng/mL Total Protein 8.0 (6.3-8.2) g/dL Albumin 4.9 (3.5-5.0) g/dL Globulin 3.1 (1.7-4.1) g/dL Albumin/Globulin Ratio 1.6 (1.0-2.8) Lipase 149 (23-300) U/L Urine RBC (0-5/HPF) Urine WBC (0-5/HPF) Ur Squamous Epith Cells (0-5/HPF) Amorphous Sediment Urine Bacteria (None) Ur Culture Indicated? 09/26/22 Range/Units 13:25 WBC (4.5-11.0) X10^3/uL RBC (4.0-5.2) X10^6/uL Hgb (12.0-16.0) g/dL Hct (36-46) % MCV (80-100) fL MCH (26-34) PG MCHC (30-36) % RDW (11.6-14.8) % Plt Count (150-400) X10^3/uL Neut % (Auto) (50-75) % Lymph % (Auto) (25-40) % [place] % (Auto) (3-14) % Eos % (Auto) (2-4) % Baso % (Auto) (0-2) % Neut # (Auto) (7801-8920) /uL Lymph # (Auto) (6100-4902) /uL [place] # (Auto) (0-900) /uL Eos # (Auto) (0-450) /uL Baso # (Auto) (0-100) /uL PT (10.1-12.7) SECONDS INR (0.9-1.3) APTT (26-36) SECONDS Sodium (137-145) mmol/L Potassium (3.4-5.1) mmol/L Chloride (98-107) mmol/L Carbon Dioxide (22-32) mmol/L BUN (7-17) mg/dL Creatinine (0.52-1.04) mg/dL Estimated GFR (>60) mL/min BUN/Creatinine Ratio (6-22) Glucose (80-110) mg/dL Calcium (8.4-10.2) mg/dL Magnesium (1.6-2.3) mg/dL Total Bilirubin (0.2-1.3) mg/dL AST (14-36) IU/L ALT (<35) IU/L Alkaline Phosphatase (38-126) U/L Total Creatine Kinase (30-135) U/L CK-MB (CK-2) CK-MB (CK-2) Rel Index Troponin I (0.01-0.034) ng/mL Total Protein (6.3-8.2) g/dL Albumin (3.5-5.0) g/dL Globulin (1.7-4.1) g/dL Albumin/Globulin Ratio (1.0-2.8) Lipase (23-300) U/L Urine RBC None seen (0-5/HPF) Urine WBC 0-1/hpf (0-5/HPF) Ur Squamous Epith Cells 1-5 /hpf (0-5/HPF) Amorphous Sediment 1+ Urine Bacteria None seen (None) Ur Culture Indicated? Cult not indicated Urine Dip Bedside Urine Glucose Negative Bedside Urine Bilirubin - Negative Bedside Urine Ketone - Negative Urine Specific [place] 1.005 Bedside Urine Occult Blood - Negative Bedside Urine pH 8.5 Bedside Urine Protein - Negative Bedside Urine Urobilinogen - Negative Bedside Urine Nitrite - Negative Bedside Urine Leukocytes - Negative Esterase Imaging Data Chest x-ray: Radiologist's Impression: PROCEDURE: XR HIP W PEL IF DONE RT 2V INDICATIONS: Fall TECHNIQUE: AP pelvis with lateral view(s) of the right hip(s). COMPARISON: None. FINDINGS: Bones: No fractures or dislocations. Pelvic ring appears intact. No suspicious bony lesions. Soft tissues: The visualized bowel gas pattern is normal. No suspicious soft tissue calcifications. IMPRESSION: No visualized acute fracture or dislocation. However, if clinical concern and/or pain persist, short interval imaging followup in 7-10 days is recommended, as occult injury cannot be definitively excluded. Dictated by: Angeles Fonseca M.D. on 09/26/2022 at 13:11 Approved by: Angeles Fonseca M.D. on 09/26/2022 at 13:11 ECG Data Interpretation: EKG independently reviewed by myself at [1210] reveals normal sinus rhythm at [61] bpm with regular axis and intervals. No STEMI, ST segment changes, arrhythmia, or acute ischemic changes. MDM Narrative Medical decision making narrative: Chief Complaint: Exacerbation low back pain Differential diagnoses include but are not limited to: acute fracture, renal colic, pyelonephritis, degenerative joint and or disc disease,, cauda equina , AAA, viscus perforation, osteomyelitis or epidural abscess, disc injury/herniation w/radiculopathy, degenerative arthritis, spinal stenosis, trauma, ligamental injury, paraspinal or other muscular strain, chronic pain, osteoarthritis, and critical cord compression. I have reviewed the patient's vital signs and nursing notes as well as prior records if available. Lab test results independently reviewed, pertinent findings: UA is negative for WBCs, RBCs, sediment or bacteria Independently reviewed imaging including: Chest x-ray which is negative for acute abnormality, lumbar spine x-ray from 05/08/2022 showing degenerative disk disease through lumbar spine, grade 1 retrolisthesis L2-3 L3-4 Course of care and re-evaluations: Patient's pain was treated with clonazepam, methocarbamol, lidocaine patch, Toradol, prednisone and hydrocodone with Tylenol all at very small doses. She was alert, oriented and reporting that her pain was much better after treatment, she was ambulatory, was able to leave a urine sample, was fully continent, has rectal tone, without weakness, sensation changes abnormality. She is tearful in grateful for her care, denies any complaint, consulted with pharmacy regarding treating her pain and she has a neuropsych appointment at 15:00 today following this appointment. Collaborating with patient and her daughter regarding plan of care, involve them both, cyst her mobility and her risk factors. She is nontoxic appearing, very low suspicion for infection, she appears to be having a pain crisis and she has exacerbation of pain with either straight leg lift. Suspect likely musculoskeletal etiology strain/sprain,/acute exacerbation of chronic low back pain. Patient's straight leg raise test was positive. No back pain red flags on history or physical. No history of IV substance use, or bony tenderness to palpation, no trauma, no bony tenderness to palpation , afebrile, no CVAT, no urinary symptoms. No bowel or urinary incontinence or retention, no saddle anesthesia, no new/worsening distal weakness, decreased reflexes or foot drop. Patient has soft tissue tenderness to palpation. Pt is neurovascularly intact distally, afebrile, without immunosuppression or evidence of infection, peritoneal signs, hypertensive crisis, incontinence, or menengial signs. Patient's symptoms improved over duration of stay with above-stated therapies. Social considerations that may affect disposition: None Questions are addressed and there is agreement with the plan and for follow-up. Patient is appropriate for outpatient management. MIPS: This encounter doesn't have any diagnosis' associated with MIPS criteria. <Adonis Sow DO - Last Filed: 09/26/22 17:29> Lab Data Labs: Lab Results 09/26/22 09/26/22 09/26/22 Range/Units 11:50 11:50 11:50 WBC 3.6 L (4.5-11.0) X10^3/uL RBC 4.74 (4.0-5.2) X10^6/uL Hgb 14.8 (12.0-16.0) g/dL Hct 43.3 (36-46) % MCV 91.4 (80-100) fL MCH 31.3 (26-34) PG MCHC 34.2 (30-36) % RDW 12.5 (11.6-14.8) % Plt Count 275 (150-400) X10^3/uL Neut % (Auto) 51.1 (50-75) % Lymph % (Auto) 35.4 (25-40) % [place] % (Auto) 11.6 (3-14) % Eos % (Auto) 1.5 L (2-4) % Baso % (Auto) 0.4 (0-2) % Neut # (Auto) 1800 (1460-9794) /uL Lymph # (Auto) 1300 (4421-9730) /uL [place] # (Auto) 400 (0-900) /uL Eos # (Auto) 100 (0-450) /uL Baso # (Auto) 0 (0-100) /uL PT 11.1 (10.1-12.7) SECONDS INR 1.0 (0.9-1.3) APTT 24 L (26-36) SECONDS Sodium 131 L (137-145) mmol/L Potassium 3.8 (3.4-5.1) mmol/L Chloride 93 L (98-107) mmol/L Carbon Dioxide 23 (22-32) mmol/L BUN 11 (7-17) mg/dL Creatinine 0.63 (0.52-1.04) mg/dL Estimated GFR > 60 (>60) mL/min BUN/Creatinine Ratio 17.5 (6-22) Glucose 110 (80-110) mg/dL Calcium 9.8 (8.4-10.2) mg/dL Magnesium 1.7 (1.6-2.3) mg/dL Total Bilirubin 0.7 (0.2-1.3) mg/dL AST 28 (14-36) IU/L ALT 22 (<35) IU/L Alkaline Phosphatase 87 (38-126) U/L Total Creatine Kinase 63 (30-135) U/L CK-MB (CK-2) TNP CK-MB (CK-2) Rel Index TNP Troponin I < 0.012 (0.01-0.034) ng/mL Total Protein 8.0 (6.3-8.2) g/dL Albumin 4.9 (3.5-5.0) g/dL Globulin 3.1 (1.7-4.1) g/dL Albumin/Globulin Ratio 1.6 (1.0-2.8) Lipase 149 (23-300) U/L Urine RBC (0-5/HPF) Urine WBC (0-5/HPF) Ur Squamous Epith Cells (0-5/HPF) Amorphous Sediment Urine Bacteria (None) Ur Culture Indicated? 09/26/22 Range/Units 13:25 WBC (4.5-11.0) X10^3/uL RBC (4.0-5.2) X10^6/uL Hgb (12.0-16.0) g/dL Hct (36-46) % MCV (80-100) fL MCH (26-34) PG MCHC (30-36) % RDW (11.6-14.8) % Plt Count (150-400) X10^3/uL Neut % (Auto) (50-75) % Lymph % (Auto) (25-40) % [place] % (Auto) (3-14) % Eos % (Auto) (2-4) % Baso % (Auto) (0-2) % Neut # (Auto) (5790-5889) /uL Lymph # (Auto) (0396-8705) /uL [place] # (Auto) (0-900) /uL Eos # (Auto) (0-450) /uL Baso # (Auto) (0-100) /uL PT (10.1-12.7) SECONDS INR (0.9-1.3) APTT (26-36) SECONDS Sodium (137-145) mmol/L Potassium (3.4-5.1) mmol/L Chloride (98-107) mmol/L Carbon Dioxide (22-32) mmol/L BUN (7-17) mg/dL Creatinine (0.52-1.04) mg/dL Estimated GFR (>60) mL/min BUN/Creatinine Ratio (6-22) Glucose (80-110) mg/dL Calcium (8.4-10.2) mg/dL Magnesium (1.6-2.3) mg/dL Total Bilirubin (0.2-1.3) mg/dL AST (14-36) IU/L ALT (<35) IU/L Alkaline Phosphatase (38-126) U/L Total Creatine Kinase (30-135) U/L CK-MB (CK-2) CK-MB (CK-2) Rel Index Troponin I (0.01-0.034) ng/mL Total Protein (6.3-8.2) g/dL Albumin (3.5-5.0) g/dL Globulin (1.7-4.1) g/dL Albumin/Globulin Ratio (1.0-2.8) Lipase (23-300) U/L Urine RBC None seen (0-5/HPF) Urine WBC 0-1/hpf (0-5/HPF) Ur Squamous Epith Cells 1-5 /hpf (0-5/HPF) Amorphous Sediment 1+ Urine Bacteria None seen (None) Ur Culture Indicated? Cult not indicated Urine Dip Bedside Urine Glucose Negative Bedside Urine Bilirubin - Negative Bedside Urine Ketone - Negative Urine Specific [place] 1.005 Bedside Urine Occult Blood - Negative Bedside Urine pH 8.5 Bedside Urine Protein - Negative Bedside Urine Urobilinogen - Negative Bedside Urine Nitrite - Negative Bedside Urine Leukocytes - Negative Esterase Discharge Plan Departure Patient Disposition: Home Clinical Impression: Acute lumbar radiculopathy, Anxiety Instructions: DI for Anxiety -- Adult, Lumbar Radiculopathy Activity Restrictions/Additional Instructions: *You have been diagnosed with an exacerbation your low back pain and anxiety which is likely related to the medication changes and lack of consistency on a dose. So far no evidence of infections, I will call you if the urine test comes back with evidence of bacteria. For your medications, please resume taking 2 mg daily of the Abilify with your 40 mg of fluoxetine daily. Please discuss any changes to your medications with your provider at 15:00. Please ask about a referral for home physical therapy or if there are any other options available closer/sooner than October. Please use ibuprofen every 8 hours with food and water to help treat this inflammation and pain. I have given you 4 days of prednisone to help with the sciatica sensation in your right hip. Please put something topical the lidocaine patches. Use your clonazepam as needed for anxiety, this also helps with muscle spasms. I have given you muscle relaxers to use 250-500 mg as needed for muscle spasms and or sleep. Please avoid constipation, if you have any changes like fever, vomiting, worsening pain, please come back to the emergency department. I hope that your symptoms start getting better soon, I am glad that you came back even though you had a lot of pain last time. I hope that you feel better. Please use caution while taking pain medications and muscle relaxers that cause sedation. Use a walker as much as possible if you have one. *What to do: *Please continue to take your regular medications as directed. [ x] New medication prescriptions sent to your pharmacy: [[facility]] [ ] New medication written as a paper prescription [ ] No new medications given *Please follow up with your primary care provider in 2-3 days, call for an appointment. Let them know you were seen in the Emergency Department and that we asked that you be seen for follow-up. We will electronically transmit a record of today's note if your PCP is in our system *If you do not have a primary care provider please contact [phone] to establish care with one of the [facility] primary care providers. *Return to Emergency Department if you should have any new, worsening, or concerning symptoms, such as [fever greater than 101F, chills, worsening pain, persistent vomiting or other bothersome symptoms]. Prescriptions: New aripiprazole [Abilify] 2 mg tablet 2 mg PO DAILY Qty: 30 0RF prednisone 20 mg tablet 20 mg PO DAILY Qty: 4 0RF methocarbamol 500 mg tablet 250 - 500 mg PO TID PRN (Reason: spasm) Qty: 20 0RF ibuprofen 400 mg tablet 400 mg PO Q8H PRN (Reason: fever or pain) Qty: 60 0RF Rx Instructions: Take with food lidocaine [Lidoderm] 5 % adhesive patch,medicated 1 patch topical DAILY Qty: 15 0RF Rx Instructions: leave on most painful area for up to 12 hrs hydrocodone-acetaminophen 5-325 mg tablet 0.5 tab PO TID PRN (Reason: pain) Qty: 10 0RF No Action lisinopril 20 mg Tablet modafinil 100 mg Tablet methocarbamol 500 mg tablet 500 mg PO BEDTIME Qty: 20 0RF hydrocodone-acetaminophen 5-325 mg tablet 1 tab PO BID PRN (Reason: pain) Qty: 10 0RF diclofenac sodium 1 % gel 2 g topical QID PRN (Reason: pain) Qty: 100 0RF Rx Instructions: to area of pain clonazepam 0.5 mg tablet 0.5 mg PO DAILY levothyroxine 100 mcg tablet 100 mcg PO DAILY fluoxetine 20 mg capsule 40 mg PO DAILY aripiprazole 5 mg tablet 5 mg PO DAILY bupropion HCl 300 mg tablet extended release 24 hr 300 mg PO DAILY Referrals: [facility] [Outside] Nida Humphrey PA-C [Primary Care Provider] - Stand Alone Forms: Patient Portal/API <Adonis Sow DO - Last Filed: 09/26/22 17:29> Cosign ED Attending Cosignature Attestation: Dr Sow Co-Sign Statement: I was available for consultation during this patient's emergency department visit. This chart is signed by myself for administrative purposes only. I did not have direct contact with this patient during this visit. They were seen independently by the APC.
[2022-09-26] MEDS: KETOROLAC 30 MG/ML VIAL 15 MG IV (13:06)
[2022-09-26] MEDS: predniSONE 20 MG TABLET PO (13:12)
[2022-09-26] MEDS: methocarbamoL 500 MG TABLET 250 MG PO (13:12)
[2022-09-26 13:47] LABS: Amorphous Sediment Urine 1+; Bacteria Urine None Seen; Culture Indicated Urine Cult Not Indicated; RBC Urine None Seen (0-5/HPF); Squamous Epithelial Cell Urine 1-5 /HPF (0-5/HPF); WBC Urine 0-1/HPF (0-5/HPF)
== END 2022-09-26 14:10 | disposition home or self-care (01) ==
PROVIDERS: Emergency Medicine; Emergency Provider Nurse Practitioner Critical Care Medicine; PCP Physician Assistant
DX: M54.16 Radiculopathy, lumbar region (principal); F41.9 Anxiety disorder, unspecified; R07.9 Chest pain, unspecified
CPT/HCPCS: 36415; 71045; 80053; 81003; 81015; 82550; 83690; 83735; 84484; 85025; 85610; 85730; 93005; 96374; 99284; 99285; J1885

== ENCOUNTER → 2023-06-01 11:12 | Outpatient (CLI) | payer MEDICARE, OTHER, SELFPAY ==
--- NOTE | 2023-06-01 11:14 | DI.RAD.S_ITS ---
Bone Density Report Name: KATINA TUCKER Age: 72 Sex: Female Ethnicity: White Date of : 1950 Indication: postmenopausal; screening for osteoporosis; prior fracture; Referring Provider: ANDRE MANCIA Study: Bone densitometry was performed. Exam Date: June 01, 2023 Accession number: [id number] Bone Density: Region BMD T-score Z-score Classification AP Spine(L1, L2, L3) 0.769 -2.3 0.1 Osteopenia Femoral Neck (Left) 0.561 -2.6 -0.5 Osteoporosis Total Hip (Left) 0.676 -2.2 -0.4 Osteopenia Total Forearm (Left) 0.522 -1.1 1.4 Osteopenia 1/3 Forearm (Left) 0.675 -0.3 2.2 Normal UD Forearm (Left) 0.331 -1.9 -0.1 Osteopenia World Health Organization criteria for BMD impression classify patients as: Normal (T-score at or above -1.0), Osteopenia (T-score between -1.0 and -2.5), or Osteoporosis (T-score at or below -2.5). 10-year Fracture Risk: FRAX not reported because: Some T-score for Spine Total or Hip Total or Femoral Neck at or below -2.5 Prior hip or vertebral fracture Impression: The patient has established osteoporosis, based on the Left Femoral Neck T-score and the existence of a prior fracture. The patient has risk factors, including: previous fracture. Discussion: HIGH RISK OF FRACTURE. BONE DENSITY IS UNDESIRABLY LOW AT ONE OR MORE SKELETAL SITES, CONSISTENT WITH POSTMENOPAUSAL OSTEOPOROSIS. This patient's lowest T-score, in a patient who has previously fractured, meets the World Health Organization's (WHO) criteria for severe osteoporosis. In untreated patients, the risk of osteoporotic fracture increases approximately two-fold for each 1.0 SD decrease in T-score. Low bone density is not the only risk factor for fracture; also consider factors such as patient's age, frailty or poor health, risk of falling, risk of injury, previous osteoporotic fracture, family history of osteoporosis, cigarette smoking, low body weight, etc. Not everyone with low bone mineral density has osteoporosis; osteomalacia and other metabolic bone disorders should also be considered. Patients who have osteoporosis should be evaluated for specific diseases and conditions (secondary causes) that may cause or contribute to bone loss. The [place] [employer]ocrin[employer] (AACE) and National Osteoporosis Foundation (NOF) recommend pharmacologic intervention for all postmenopausal women with a previous hip or vertebral fracture and a T-score in this range. The patient should follow a healthful lifestyle (good nutrition with adequate calcium and vitamin D, and appropriate weight-bearing exercise). Follow-Up: Consider a repeat BMD and Vertebral Fracture Assessment (VFA) exam in 2 years or sooner if medically necessary, to reassess this patient's status. Reported by: MARGARITA MOSLEY M.D. on 06/01/2023 12:06:00 PM.
== END ==
PROVIDERS: PCP Internal Medicine; Referring Provider Internal Medicine; Visit Provider Internal Medicine
DX: M85.89 Other specified disorders of bone density and structure, multiple sites (principal); M81.0 Age-related osteoporosis without current pathological fracture
CPT/HCPCS: 77080

== ENCOUNTER → 2023-06-02 07:33 | Outpatient (CLI) | payer MEDICARE, OTHER, SELFPAY ==
[2023-06-02 08:42] LABS: Aspartate Aminotransferase 23 IU/L (14-36); BUN Creatinine Ratio 21.6 (6-22); Blood Urea Nitrogen 11 mg/dL (7-17); Calcium 9.7 mg/dL (8.4-10.2); Carbon Dioxide 30 mmol/L (22-32); Chloride 94 mmol/L (98-107); Cholesterol 153 mg/dL (140-199); Estimated Glomerular Filt Rate > 60 mL/min (>60); Glucose 88 mg/dL (80-110); HDL Cholesterol 102 mg/dL (40-60); HEMOLYSIS 25 (0-50); LDL Cholesterol Calculated 38 mg/dL (<100); Potassium 4.2 mmol/L (3.4-5.1); Sodium 129 mmol/L (137-145); Triglycerides 67 mg/dL (35-150)
[2023-06-02 09:13] LABS: TSH w/ Reflex to FT4 0.38 uIU/mL (0.47-4.68)
[2023-06-02 09:42] LABS: Free T4, Direct Thyroxine 1.31 ng/dL (0.78-2.19)
== END ==
PROVIDERS: PCP Internal Medicine; Referring Provider Internal Medicine; Visit Provider Internal Medicine
DX: E03.9 Hypothyroidism, unspecified (principal); E78.2 Mixed hyperlipidemia; I10 Essential (primary) hypertension
CPT/HCPCS: 36415; 80048; 80061; 84439; 84443; 84450

== ENCOUNTER → 2023-07-15 11:16 | Outpatient (CLI) | payer MEDICARE, OTHER, SELFPAY ==
--- NOTE | 2023-07-15 11:17 | DI.RAD.S_ITS ---
PROCEDURE: XR SHOULDER RT MIN 2V INDICATIONS: Right shoulder pain TECHNIQUE: 3 views of the shoulder were acquired. COMPARISON: None. FINDINGS: Bones: No fractures or dislocations. No suspicious bony lesions. Visualized ribs appear intact. Mild glenohumeral joint degeneration. Soft tissues: No suspicious soft tissue calcifications. IMPRESSION: No acute bony abnormality. Mild glenohumeral joint degeneration. If symptoms persist with conservative management, consider cross-sectional imaging such as CT or MRI. Dictated by: Gladys Cornell M.D. on 07/15/2023 at 11:46 Approved by: Gladys Cornell M.D. on 07/15/2023 at 11:47
== END ==
PROVIDERS: PCP Internal Medicine; Referring Provider Nurse Practitioner Family; Visit Provider Nurse Practitioner Family
DX: M19.011 Primary osteoarthritis, right shoulder (principal); M25.511 Pain in right shoulder
CPT/HCPCS: 73030

== ENCOUNTER → 2024-01-02 14:36 | Outpatient (CLI) | payer MEDICARE, OTHER, SELFPAY ==
--- NOTE | 2024-01-02 14:39 | DI.MRI.S_ITS ---
PROCEDURE: MR SHOULDER RT WO CON INDICATIONS: RIGHT SHOULDER PAIN TECHNIQUE: Noncontrast oblique coronal T2 fast spin echo with fat saturation, oblique sagittal T1 spin echo and T2 fast spin echo with fat saturation, axial T1 spin echo and T2 fast spin echo with fat saturation through the shoulder. COMPARISON: None. FINDINGS: Image quality: Excellent. Rotator cuff: There is prior rotator cuff tendon repair. Full-thickness rupture involving distal infraspinatus at its insertion on the humeral head is seen with up to 3.3 cm medial retraction of torn tendon fibers to the level of acromion. Moderate grade articular surface partial-thickness tear involving distal infraspinatus at its insertion on the humeral head is seen extending to musculotendinous junction. Moderate grade intrasubstance partial-thickness tear involving distal subscapularis is seen. Sagittal images demonstrate mild to moderate infraspinatus muscle atrophy and mild supraspinatus muscle atrophy. Bones and bursae: Postsurgical changes are noted in humeral head. Marrow edema throughout humeral head and proximal humeral shaft is seen. No acute fracture or dislocation. There is superior migration of humeral head in relation to glenoid. Pkfl-yj-zullyvoj acromioclavicular joint and glenohumeral joint osteoarthritic changes are seen. There is moderate joint effusion and subacromial subdeltoid bursal fluid, no gross loose bodies. Capsule and soft tissues: There is suggestion of superior anterior labral tear at 12 to 2 o'clock position. The long head of the biceps tendon appears attenuated intra-articularly. The rotator interval appears normal, without fibrosis. The coracohumeral ligament is normal in thickness. IMPRESSION: 1. Prior rotator cuff tendon repair. Full-thickness rupture involving distal infraspinatus at its insertion on the humeral head with up to 3.3 cm medial retraction of torn tendon fibers to the level of acromion. Moderate grade articular surface partial-thickness tear involving distal supraspinatus extending to musculotendinous junction. Moderate grade intrasubstance partial-thickness tear involving distal subscapularis. Mild to moderate infraspinatus muscle atrophy and mild supraspinatus muscle atrophy. 2. Postsurgical changes in humeral head. No acute fracture or dislocation. Rmju-um-fetlffph acromioclavicular joint and glenohumeral joint osteoarthritis. Moderate joint effusion and subacromial subdeltoid bursal fluid, no loose bodies. 3. Suggestion of superior anterior labral tear at 12 to 2 o'clock position. 4. Low to moderate grade partial-thickness tear involving proximal long head of biceps tendon. Dictated by: Marquise Marcsu M.D. on 01/04/2024 at 10:02 Approved by: Marquise Marcus M.D. on 01/04/2024 at 10:24
== END ==
PROVIDERS: PCP Internal Medicine; Referring Provider Physician Assistant Medical; Visit Provider Physician Assistant Medical
DX: S46.011A Strain of muscle(s) and tendon(s) of the rotator cuff of right shoulder, initial encounter (principal); S46.111A Strain of muscle, fascia and tendon of long head of biceps, right arm, initial encounter; M19.011 Primary osteoarthritis, right shoulder; X58.XXXA Exposure to other specified factors, initial encounter
CPT/HCPCS: 73221

== ENCOUNTER → 2024-02-16 12:49 | Outpatient (CLI) | payer MEDICARE, OTHER, SELFPAY ==
--- NOTE | 2024-02-16 13:04 | EKG_ITS ---
[address] [address] Test Date: 2024-02-16 Pat Name: Diana Pennington Department: Room: Gender: Female Rigger Up: LUBNA : 1950 Requested By: Order Number: [id number] Reading MD: Jay Luevano Measurements Intervals [place] Rate: 66 P: 55 [place]: 168 QRS: 41 QRSD: 92 T: 56 QT: 424 QTc: 444 Interpretive Statements Normal sinus rhythm Electronically Signed On 02-17-2024 19:42:49 PDT by Jay Luevano
[2024-02-16 13:41] LABS: Add Manual Diff / Slide Review NO; Basophils Absolute Auto 0 /uL (0-100); Basophils Percent Auto 0.2 % (0-2); Eosinophils Absolute Auto 0 /uL (0-450); Eosinophils Percent Auto 0.6 % (2-4); Hematocrit 36.4 % (36-46); Hemoglobin 12.4 g/dL (12.0-16.0); Lymphocytes Absolute Auto 1000 /uL (1100-4500); Lymphocytes Percent Auto 19.3 % (25-40); Mean Corpuscular Hemoglobin 31.6 PG (26-34); Mean Corpuscular Volume 92.9 fL (80-100); Monocytes Absolute Auto 500 /uL (0-900); Monocytes Percent Auto 8.8 % (3-14); Neutrophils Absolute Auto 3700 /uL (1500-7000); Neutrophils Percent Auto 71.1 % (50-75); Platelet Count 282 X10^3/uL (150-400); Red Blood Cell Count 3.92 X10^6/uL (4.0-5.2); Red Cell Distribution Width 12.9 % (11.6-14.8); White Blood Cell Count 5.1 X10^3/uL (4.5-11.0)
[2024-02-16 13:42] LABS: Appearance Urine UA CLEAR; Bilirubin Urine UA NEGATIVE (NEGATIVE); Color Urine UA YELLOW; Glucose Urine UA NEGATIVE (Negative); Ketones Urine UA NEGATIVE (NEGATIVE); Leukocyte Esterase Urine UA 1+ (NEGATIVE); Nitrite Urine UA POSITIVE (Negative); Occult Blood Urine UA TRACE-INTACT (Negative); Protein Urine UA NEGATIVE (Negative); Urobilinogen Urine UA 0.2 E.U./dL (0.2)
[2024-02-16 13:55] LABS: RBC Urine 0-1/HPF (0-5/HPF); Urine Volume 10mL (spun); WBC Urine 5-10/HPF (0-5/HPF)
[2024-02-16 13:56] LABS: Bacteria Urine Many (>30); Culture Indicated Urine Specimen Cultured; Squamous Epithelial Cell Urine 0-1 /HPF (0-5/HPF)
[2024-02-16 13:58] LABS: Blood Urea Nitrogen 15 mg/dL (7-17); Calcium 9.3 mg/dL (8.4-10.2); Carbon Dioxide 30 mmol/L (22-32); Chloride 94 mmol/L (98-107); Estimated Glomerular Filt Rate > 60 mL/min (>60); Glucose 90 mg/dL (80-110); HEMOLYSIS < 15 (0-50); Potassium 5.2 mmol/L (3.4-5.1); Sodium 128 mmol/L (137-145)
== END ==
PROVIDERS: PCP Internal Medicine; Referring Provider Orthopaedic Surgery; Visit Provider Orthopaedic Surgery
DX: Z01.818 Encounter for other preprocedural examination (principal); Z01.812 Encounter for preprocedural laboratory examination; N39.0 Urinary tract infection, site not specified
CPT/HCPCS: 36415; 80048; 81001; 85025; 87077; 87086; 87186; 93005

== ENCOUNTER → 2024-03-07 11:31 | Outpatient (CLI) | payer MEDICARE, OTHER, SELFPAY ==
--- NOTE | 2024-03-07 11:33 | DI.RAD.S_ITS ---
PROCEDURE: XR CERVICAL SPINE MIN 6V INDICATIONS: cervical myelopathy TECHNIQUE: 7 views of the cervical spine were acquired. COMPARISON: [facility], CR, XR CERVICAL SPINE 2V OR 3V, 09/24/2018, 16:41. FINDINGS: Bones: No fractures or dislocations to the C7 level. No suspicious bony lesions. There is reversal of the normal cervical lordosis with trace anterolisthesis of C3 on C4 and trace retrolisthesis of C4 on C5 and C5 on C6. Multilevel joint space narrowing and endplate degenerative changes. Multilevel uncovertebral and facet hypertrophy. Lower cervical spine bilateral foraminal stenosis. There is normal range of motion between flexion and extension, without abnormal subluxation. Soft tissues: Prevertebral soft tissues are normal in thickness. IMPRESSION: No acute fracture or traumatic subluxation. Multilevel spondylolisthesis and degenerative changes. Normal range of motion without abnormal subluxation on flexion extension views. Approved by: Gladys Cornell M.D.,Ph.D. on 03/07/2024 at 21:03
== END ==
PROVIDERS: PCP Internal Medicine; Referring Provider Internal Medicine; Visit Provider Internal Medicine
DX: M47.12 Other spondylosis with myelopathy, cervical region (principal); M43.12 Spondylolisthesis, cervical region
CPT/HCPCS: 72052

== ENCOUNTER → 2024-03-16 11:46 | Outpatient (CLI) | payer MEDICARE, OTHER, SELFPAY ==
--- NOTE | 2024-03-16 11:48 | DI.MRI.S_ITS ---
PROCEDURE: MR CERVICAL SPINE WO CON INDICATIONS: cervical myelopathy TECHNIQUE: Noncontrast sagittal T1 spin echo and T2 fast spin echo, sagittal STIR, foraminal oblique sagittal T2 fast spin echo, and axial gradient echo or T2 fast spin echo through the cervical spine. COMPARISON: None. FINDINGS: Image quality: Excellent. Alignment and Curvature: There is reversal of cervical lordosis. Bone Marrow: Marrow demonstrates normal overall signal. Incidental osseous hemangioma within the C4 vertebral body. Spinal Cord: Visualized spinal cord has normal size and signal. No cerebellar tonsillar herniation. Paraspinous Soft Tissues: No paravertebral masses. Prevertebral soft tissues are normal in thickness. C2-C3: No spinal canal stenosis or foraminal stenosis. There is bilateral facet arthropathy and uncovertebral joint arthropathy. C3-C4: Disc osteophyte complex mildly flattens the ventral thecal sac. No spinal canal stenosis or foraminal stenosis. There is bilateral facet arthropathy and uncovertebral joint arthropathy. C4-C5: Dorsal disc osteophyte complex mildly effaces the ventral thecal sac and abuts the ventral spinal cord. No foraminal stenosis. Bilateral facet arthropathy and uncovertebral joint arthropathy. C5-C6: There is a small left paracentral disc protrusion that flattens the ventral spinal cord. Mild bilateral foraminal narrowing. There is bilateral facet arthropathy and uncovertebral joint arthropathy. C6-C7: There is a left subarticular disc protrusion that resultant moderate left foraminal stenosis. The server software engineer thickened or disc protrusion mildly abuts the ventral spinal cord. No significant right foraminal stenosis. There is bilateral facet arthropathy and uncovertebral joint arthropathy. C7-T1: No spine canal stenosis or foraminal stenosis. There is bilateral facet arthropathy and bilateral uncovertebral joint arthropathy. IMPRESSION: 1. There is multilevel degenerative disc disease throughout the cervical spine as described above. The worst level is at C5-C6 which demonstrates a small left paracentral disc protrusion that mildly effaces the ventral thecal sac and abuts the ventral spinal cord. 2. At the C6-C7 level, there is an left subarticular disc protrusion that results in moderate stenosis of the left foramen. 3. There is reversal of cervical lordosis. This finding can be seen in patients with muscle spasms. Dictated by: Jagdeep Barth M.D. on 03/17/2024 at 7:37 Approved by: Jagdeep Barth M.D. on 03/17/2024 at 9:49
== END ==
PROVIDERS: PCP Internal Medicine; Referring Provider Internal Medicine; Visit Provider Internal Medicine
DX: M47.812 Spondylosis without myelopathy or radiculopathy, cervical region; M50.222 Other cervical disc displacement at C5-C6 level; G95.9 Disease of spinal cord, unspecified; M48.02 Spinal stenosis, cervical region
CPT/HCPCS: 72141

== ENCOUNTER → 2024-03-24 13:26 | Outpatient (CLI) | payer MEDICARE, OTHER, SELFPAY ==
--- NOTE | 2024-03-24 | DI.CT.S_ITS ---
PROCEDURE: CT UE RT WO CON INDICATIONS: ROTATOR CUFF INJURY. Right shoulder pain TECHNIQUE: Noncontrast 0.75 mm thick sections acquired from the acromioclavicular joint to the inferior scapula, with coronal and sagittal reformatting. COMPARISON: [facility], MR, MR SHOULDER RT WO CON, 01/02/2024, 15:01. FINDINGS: Image quality: Excellent. Bones: There is superior migration of humeral head in relation to glenoid. Lpsc-ha-jjfjpsit acromioclavicular joint and glenohumeral joint osteoarthritic changes are seen with joint space narrowing, subchondral sclerosis and marginal osteophyte formation. Subcortical cystic areas are noted involving greater tuberosity of humeral head, a pathologic fracture through base of greater tuberosity cannot be entirely excluded. This is unchanged from previous MRI study. No other fracture or dislocation. No suspicious intraosseous lesion. The visualized right upper ribs are intact. Soft tissues: There is suggestion of full-thickness rupture of distal supraspinous and portions of infraspinatus better evaluated on previous MR study. Sagittal images shows mild to moderate supraspinatus muscle atrophy. No abnormal soft tissue calcifications. Moderate joint effusion and subacromial subdeltoid bursal fluid is seen, no gross calcified intra-articular loose bodies. There is no axillary lymphadenopathy. The visualized right lung field is clear. IMPRESSION: 1. Superior migration of humeral head in relation to glenoid and suggestion of full-thickness rupture involving distal supraspinatus and likely portions of infraspinatus better evaluated on previous MRI study. Pauf-bn-xbornojs supraspinatus muscle atrophy. 2. Vzul-qc-stkveosh acromioclavicular joint and glenohumeral joint osteoarthritis. No acute fracture or dislocation. Extensive subcortical cystic changes involving greater tuberosity of humeral head, a nondisplaced pathologic fracture through base of greater tuberosity cannot be entirely excluded. This appearance is not significantly changed from previous MRI study. No suspicious bony lesions. 3. Moderate joint effusion and subacromial subdeltoid bursal fluid, no gross loose bodies. No abnormal soft tissue calcifications. Dictated by: Marquise Marcus M.D. on 03/24/2024 at 19:45 Approved by: Marquise Marcsu M.D. on 03/24/2024 at 19:49
== END ==
PROVIDERS: PCP Internal Medicine; Referring Provider Orthopaedic Surgery; Visit Provider Orthopaedic Surgery
DX: S46.011A Strain of muscle(s) and tendon(s) of the rotator cuff of right shoulder, initial encounter (principal); M19.011 Primary osteoarthritis, right shoulder; M25.411 Effusion, right shoulder; X58.XXXA Exposure to other specified factors, initial encounter
CPT/HCPCS: 73200

== ENCOUNTER → 2024-03-28 16:47 | Outpatient (CLI) | payer MEDICARE, OTHER, SELFPAY ==
--- NOTE | 2024-03-28 16:48 | DI.MRI.S_ITS ---
PROCEDURE: MR HEAD/BRAIN WO CON INDICATIONS: gait instability. Please evaluate for ACADEMIC VICE PRESIDENT lesion / CVA TECHNIQUE: Non-contrast axial T1 spin echo, axial T2 fast spin echo, sagittal and axial FLAIR, coronal T2 fast spin echo, axial gradient echo, axial diffusion and ADC through the brain. IV access could not be obtained. No contrast was given. COMPARISON: None. FINDINGS: Image quality: Diagnostic CSF spaces: Ventricles appear symmetric in size and shape. Basal cisterns are patent. No extra-axial fluid collections. Brain: No intracranial bleeds or mass effects. There is cerebral volume loss for age. There are periventricular and deep white matter chronic small vessel ischemic changes. Brainstem appears normal. Diffusion-weighted images show no acute infarct. No chronic ischemic insults. Normal intravascular flow voids are present. Skull and face: Calvarial bone marrow is normal in signal. Orbits are normal. Note is made of bilateral lens replacements. Sinuses: Sinuses and mastoids are clear. IMPRESSION: No findings of acute or subacute infarction can be seen. No prior territorial infarct can be seen. To the limits of this noncontrast study, no findings of intracranial masses or mass effect can be seen. (No IV contrast was given, as no IV access could be obtained.) Dictated by: Santhosh Cardoza M.D. on 03/29/2024 at 12:13 Approved by: Santhosh Cardoza M.D. on 03/29/2024 at 12:14
== END ==
PROVIDERS: PCP Internal Medicine; Referring Provider Internal Medicine; Visit Provider Internal Medicine
DX: R26.81 Unsteadiness on feet (principal)
CPT/HCPCS: 70551

== ENCOUNTER → 2024-03-31 10:14 | Outpatient (CLI) | payer MEDICARE, OTHER, SELFPAY ==
[2024-03-31 12:35] LABS: Appearance Urine UA CLEAR; Bilirubin Urine UA NEGATIVE (NEGATIVE); Color Urine UA YELLOW; Glucose Urine UA NEGATIVE (Negative); Ketones Urine UA NEGATIVE (NEGATIVE); Leukocyte Esterase Urine UA NEGATIVE (NEGATIVE); Nitrite Urine UA NEGATIVE (Negative); Occult Blood Urine UA NEGATIVE (Negative); Protein Urine UA NEGATIVE (Negative); Specific Gravity Urine UA <=1.005 (1.000-1.035); Urobilinogen Urine UA 0.2 E.U./dL (0.2)
[2024-03-31 13:07] LABS: Bacteria Urine None Seen; Culture Indicated Urine Cult Not Indicated; RBC Urine 0-1/HPF (0-5/HPF); Squamous Epithelial Cell Urine 1-5 /HPF (0-5/HPF); Urine Volume 10mL (spun); WBC Urine 0-1/HPF (0-5/HPF)
== END ==
PROVIDERS: PCP Internal Medicine; Referring Provider Orthopaedic Surgery; Visit Provider Orthopaedic Surgery
DX: N39.0 Urinary tract infection, site not specified (principal)
CPT/HCPCS: 81001

== ENCOUNTER → 2024-05-05 11:53 | Outpatient (CLI) | payer MEDICARE, OTHER, SELFPAY | LOC: PHYS 11:55 | PROVIDERS: Family Provider Internal Medicine; PCP Internal Medicine; Referring Provider Internal Medicine; Visit Provider Internal Medicine | DX: M54.12 Radiculopathy, cervical region (principal) | CPT/HCPCS: 95886; 95909 ==

== ENCOUNTER 2024-05-12 08:41 | Day surgery (SDC) | payer MEDICARE, OTHER, SELFPAY ==
[2024-05-11 13:36] VITALS: BMI 20.2
--- NOTE | 2024-05-12 07:40 | DI.RAD.S_ITS ---
PROCEDURE: XR SHOULDER RT 1V INDICATIONS: RTSA TECHNIQUE: 1 views of the shoulder were acquired. COMPARISON: [facility], CR, XR SHOULDER 2+ VIEWS RIGHT, 07/16/2023, 14:51. [facility], CR, XR SHOULDER RT MIN 2V, 07/15/2023, 11:18. FINDINGS: Reverse right shoulder arthroplasty. No unexpected fracture or dislocation seen. Visualized portions of the right hemithorax are clear. IMPRESSION: Reverse right shoulder arthroplasty projects in the expected location on this single view. Dictated by: Shailesh Shane M.D. on 05/12/2024 at 13:22 Approved by: Shailesh Shane M.D. on 05/12/2024 at 13:24
[2024-05-12] MEDS: ACETAMINOPHEN 325 MG TABLET 650 MG PO (09:08)
[2024-05-12] MEDS: LACTATED RINGERS 1,000 ML 42 ML IV (09:09)
[2024-05-12 09:17] VITALS: BP 153/89; PULSE 68; RESP 16; TEMP 36.6; O2SAT 98; BMI 20.2
[2024-05-12 09:41] LABS: BUN Creatinine Ratio 21.1 (6-22); Blood Urea Nitrogen 12 mg/dL (7-17); Calcium 9.5 mg/dL (8.4-10.2); Carbon Dioxide 28 mmol/L (22-32); Chloride 98 mmol/L (98-107); Estimated Glomerular Filt Rate > 60 mL/min (>60); Glucose 86 mg/dL (80-110); HEMOLYSIS 16 (0-50); Sodium 135 mmol/L (137-145)
--- NOTE | 2024-05-12 10:14 | PM.PREOP ---
Pre-operative Note Interval Note History & Physical reviewed/Exam performed by Physician: Yes Changes to H&P: No
[2024-05-12] MEDS: CEFAZOLIN 2 GM/100 ML PREMIX 100 ML IV (10:26)
--- NOTE | 2024-05-12 10:56 | SUR.OPER ---
Beach chair with Monen/Alyx shoulder positioner. Lower body on padded OR bed. Head in foam padded head cradle, secured with straps. Non-operative arm padded and tucked. Pillow under knees. Safety belt at thigh. Cloth tape over blanket over lower legs.
[2024-05-12] MEDS: BUPIVACAINE 0.25% (PF) 30 ML, EPINEPHrine 0.15 MG INJ (11:06)
[2024-05-12] MEDS: TRANEXAMIC ACID 1,000 MG VIAL 1000 MG INJ ×2 (11:45→11:46)
--- NOTE | 2024-05-12 12:14 | P.OP_ITS ---
Operative Date/Time/Diagnoses Date of procedure: 05/12/24 Time of procedure: 12:14 Pre-op diagnosis: Right cuff tear arthropathy Post-op diagnosis: same Procedure & Clinicians Procedure: Right reverse total shoulder arthroplasty Same procedure as scheduled: Yes Indications: Indications: This is a 73-year-old female who has rotator cuff arthropathy status post failed rotator cuff repair. Patient has failed a reasonable attempt at conservative therapy. After extensive discussion in clinic, they wished to go forward with surgery. Risks and benefits were described including the risk of infection, bleeding, damage to internal structures including nerves. We also discussed the risk of failure of surgery and the need for revision surgery as well as the risk of anesthesia. The patient expressed understanding with these risks and wished to go forward with surgery. Surgeon: Filippo Saldivar [place] Supervisor: Alanna Fonseca Anesthesia Type: General Operative Notes Findings: Findings: Posterior cuff tear as noted on preoperative imaging and under direct visualization Closure Type: primary Specimen(s): none sent Prosthetic devices, grafts, tissues, transplants, or devices: Tornier implants Base plate: standard 25 mm, Glenosphere: 33 mm (+3 lateralized) Stem: Perform 2+ Poly: +0 concentric Estimated Blood Loss (mL): 50 Blood products transfused: none Procedure in detail: Patient was seen in the preoperative holding unit. The correct right shoulder was identified and marked with my initials. Again we discussed the risks and benefits of surgery and they wished to go forward with surgery. The patient was brought back to the operating room and placed supine on the operating table. Smooth endotracheal intubation was performed by anesthesia. All prominences were padded and they were placed into the beach chair position. Intravenous antibiotics were given. The right shoulder was then prepped with the standard sterile preparation and draping. A time-out was then performed in my initials were again identified on the correct shoulder. 1 g of IV tranexamic acid was given. A standard deltopectoral incision was made. Skin flaps were made. The cephalic vein was identified and retracted laterally. This was protected throughout the remainder of the case. Sharp dissection was made along the deltoid, subacromial and subcoracoid space to release adhesions. The conjoined tendon was identified and the axillary nerve was palpated and continuous using the tug test. It was protected throughout the remainder of the case. A brown retractor was placed underneath the deltoid muscle and a darach retractor underneath the conjoint tendon. The subscapularis muscle was noted to be intact. The anterior circumflex artery and associated veins on the lower border of the subscapularis were identified and tied off using 0-Vicryl. The biceps tendon was identified in the bicipital groove. This was released from its sheath, and taken from its origin on the glenoid and tied into the pectoralis tendon for a solid tenodesis. We then began a subscapularis peel. The subscapularis was tagged with an Ethibond suture. A 360 degree circumferential release of the subscapularis was performed with protection of the axillary nerve. The coracohumeral ligament was released at the base of the coracoid. The shoulder was then dislocated. Osteophytes were removed using combination of rongeur and osteotome. The rotator cuff was noted to be insufficient. An intramedullary guide was used set at version of 20?. Using an oscillating saw a conservative humeral head cut was made. Impaction reamers were reamed up to a size 2 stem with a built-in angle 135?. A neck protector was placed. [The deltopectoral interval was then closed with #2 Ethibond.] The skin was closed with 2-0 vicryl and [3-0 Monocryl] followed by Aquacel dressing. Patient was awoken from anesthesia and brought back to the postoperative recovery unit without issue. They were placed into a sling. Assisting participation: This operation could not have been safely performed (without compromising the technical results or length of the procedure) without the assistance of a skilled surgical training specialist. The surgical training specialist was medically necessary for proper positioning, retraction and manipulation of instruments, proper exposure, graft prep, and manipulation of tissue. Complications: none Post-operative Condition: stable Disposition: PACU Plan for aftercare: Postoperative instructions: No physical therapy for the 1st 6 weeks. Pendulum exercises only. Sling to remain on for 6 weeks. No external rotation past neutral for 6 weeks. Okay for the sling to come off for shower. Okay to shower over the Aquacel dressing. If any water gets underneath the dressing, remove the dressing. First postoperative visit in 2 weeks.
[2024-05-12 12:15] VITALS: BP 120/71; PULSE 74; RESP 21; TEMP 36.3; O2SAT 96
[2024-05-12 12:20] VITALS: BP 113/70; PULSE 75; RESP 17; TEMP 36.3; O2SAT 97
[2024-05-12 12:25] VITALS: BP 112/67; PULSE 71; RESP 15; TEMP 36.3; O2SAT 97
[2024-05-12 12:35] VITALS: BP 118/67; PULSE 69; RESP 15; TEMP 36.3; O2SAT 98
[2024-05-12 13:10] VITALS: BP 103/63; PULSE 67; RESP 16; O2SAT 96
== END 2024-05-12 13:10 | disposition home or self-care (01) ==
PROVIDERS: Physician Assistant; Family Provider Internal Medicine; PCP Internal Medicine; Referring Provider Internal Medicine; Visit Provider Orthopaedic Surgery
PROC: (CPT 23472; principal; 2024-05-12 10:15)
DX: M75.101 Unspecified rotator cuff tear or rupture of right shoulder, not specified as traumatic (principal); G89.18 Other acute postprocedural pain; M25.711 Osteophyte, right shoulder
CPT/HCPCS: 23472; 64415; 73020; 80048; C1776; J0171; J0690; J1100; J2405; J2704; J3010

== ENCOUNTER → 2024-06-07 08:31 | Outpatient (CLI) | payer MEDICARE, OTHER, SELFPAY ==
[2024-06-07 09:07] LABS: Aspartate Aminotransferase 26 IU/L (14-36); BUN Creatinine Ratio 27.3 (6-22); Blood Urea Nitrogen 15 mg/dL (7-17); Calcium 9.9 mg/dL (8.4-10.2); Carbon Dioxide 29 mmol/L (22-32); Chloride 96 mmol/L (98-107); Cholesterol 148 mg/dL (140-199); Estimated Glomerular Filt Rate > 60 mL/min (>60); Glucose 82 mg/dL (80-110); HDL Cholesterol 109 mg/dL (40-60); HEMOLYSIS < 15 (0-50); LDL Cholesterol Calculated 25 mg/dL (<100); Potassium 5.6 mmol/L (3.4-5.1); Sodium 130 mmol/L (137-145); Triglycerides 71 mg/dL (35-150)
[2024-06-07 09:10] LABS: Appearance Urine UA CLEAR; Bilirubin Urine UA NEGATIVE (NEGATIVE); Color Urine UA YELLOW; Glucose Urine UA NEGATIVE (Negative); Ketones Urine UA NEGATIVE (NEGATIVE); Leukocyte Esterase Urine UA NEGATIVE (NEGATIVE); Nitrite Urine UA NEGATIVE (Negative); Occult Blood Urine UA NEGATIVE (Negative); Protein Urine UA NEGATIVE (Negative); Urobilinogen Urine UA 0.2 E.U./dL (0.2)
[2024-06-07 09:27] LABS: Urine Volume 10mL (spun); pH Urine UA 6.5 (4.5-8.0)
[2024-06-07 09:28] LABS: Bacteria Urine None Seen; Culture Indicated Urine Cult Not Indicated; RBC Urine None Seen (0-5/HPF); Squamous Epithelial Cell Urine None Seen (0-5/HPF); WBC Urine None Seen (0-5/HPF)
[2024-06-07 09:38] LABS: TSH w/ Reflex to FT4 0.74 uIU/mL (0.47-4.68)
== END ==
PROVIDERS: Family Provider Internal Medicine; PCP Internal Medicine; Referring Provider Internal Medicine; Visit Provider Internal Medicine
DX: E03.9 Hypothyroidism, unspecified (principal); E78.2 Mixed hyperlipidemia; I10 Essential (primary) hypertension; R32 Unspecified urinary incontinence
CPT/HCPCS: 36415; 80048; 80061; 81001; 84443; 84450

== ENCOUNTER 2024-06-09 18:30 | Emergency (ER) | payer MEDICARE, OTHER, SELFPAY ==
[2024-06-09 18:49] VITALS: BP 120/56; PULSE 68; RESP 15; TEMP 36.2; O2SAT 98; BMI 19.9
--- NOTE | 2024-06-09 18:56 | DI.RAD.S_ITS ---
PROCEDURE: XR SHOULDER LT MIN 2V INDICATIONS: fall TECHNIQUE: 4 views of the shoulder were acquired. COMPARISON: [facility], MR, MR SHOULDER LEFT WITHOUT CONTRAST, 11/13/2023, 7:35. [facility], CR, XR SHOULDER RT 1V, 05/12/2024, 12:23. [facility], CR, XR SHOULDER RT MIN 2V, 07/15/2023, 11:18. FINDINGS: Acute, comminuted, left distal clavicular fracture with overriding. The coracoclavicular and acromioclavicular intervals are preserved. Enthesopathy along the greater tuberosity of the humerus. No proximal humeral fracture. Multiple, age indeterminate, minimally displaced left-sided rib fractures. The visualized left hemithorax is within normal limits. IMPRESSION: 1. Acute, comminuted left distal clavicular fracture with overriding. 2. Age-indeterminate, minimally displaced left-sided rib fractures. Please correlate for point tenderness. Dictated by: Rusty Diana M.D. on 06/09/2024 at 20:55 Approved by: Rusty Diana M.D. on 06/09/2024 at 21:00
[2024-06-09] MEDS: ACETAMINOPHEN 325 MG TABLET 975 MG PO (20:15)
--- NOTE | 2024-06-09 21:48 | ED.UPPEXIN ---
HPI - Extremity Injury (Upper) General Chief Complaint: Extremity Injury, Upper Stated Complaint: poss dislocated lt shoulder Time Seen by Provider: 06/09/24 19:19 Source: patient Mode of arrival: Family Vehicle Limitations: no limitations History of Present Illness HPI narrative: 73-year-old history of hypertension, dyslipidemia, hypothyroidism, osteoporosis who presents with complaint of left shoulder pain. Patient was in a sauna states she got a little bit over he did and fell when she was coming out. No loss of consciousness, does not complain of hitting her head. She is pain at the left clavicle shoulder region. Does have some deformity over the clavicle. No denies any numbness tingling or weakness. Does have some discomfort and an abrasion on her left upper back. Patient states no other chest pain or shortness of breath. [place] little nauseated after receiving some Tylenol in the waiting room, no vomiting. No neck or back pain. Denies any other symptoms. Related Data Home Medications Medication Instructions Recorded Confirmed modafinil 200 mg tablet 100 mg PO DAILY 12/18/22 05/30/24 fluoxetine 20 mg capsule (Prozac) 60 mg PO DAILY 03/01/24 05/30/24 aripiprazole 5 mg tablet (Abilify) 5 mg PO DAILY 04/08/24 05/30/24 clonazepam 0.5 mg tablet 0.5 mg PO PRN PRN Sleep 05/11/24 05/30/24 Previous Rx's Medication Instructions Recorded amlodipine 2.5 mg tablet 2.5 mg PO DAILY #90 tabs 06/29/23 lisinopril 5 mg tablet 5 mg PO DAILY #90 tabs 10/08/23 levothyroxine 100 mcg tablet 100 mcg PO DAILY #90 tabs 12/14/23 rosuvastatin 10 mg tablet 10 mg PO DAILY #90 tabs 02/29/24 solifenacin 5 mg tablet 5 mg PO DAILY #90 tabs 05/30/24 Allergies Allergy/AdvReac Type Severity Reaction Status Date / Time erythromycin base Allergy Mild Rash Verified 06/09/24 18:56 meperidine AdvReac Mild Nausea Verified 06/09/24 18:56 Patient History Medical History (Updated 06/09/24 @ 22:14 by Alta Bonds DO) Left arm weakness Urinary incontinence Age-related osteoporosis without current pathological fracture Left cervical radiculopathy Right rotator cuff tear Lumbar disc disease Hearing loss (~2015) History of urinary incontinence (~2020) Irritable bowel syndrome Colitis History of colonic polyps Lymphocytic colitis Generalized anxiety disorder Depression, major, recurrent Acquired hypothyroidism Mixed hyperlipidemia Essential hypertension Hip osteoarthritis Scoliosis Surgical History History of hip replacement History of bilateral breast implants History of facelift S/P rotator cuff repair (~08/2023) History of toe surgery Family History Father History of heart disease Hyperlipidemia Hypertension Mother Blood disorder Grandfather Stroke Rheumatoid arthritis Grandfather History of heart disease Hypertension Other Family history non-contributory Social History details: (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 HEAD: No evidence of trauma, no raccoon/Parsons sign. NECK: Nontender, painless range of motion, trachea midline Neck Nexus criteria, no midline line tenderness, distracting injury, altered mental status, neuro deficit, recent EtOH. EYES: PERRLA, EOMI ENT: External inspection normal, trachea is midline, Nares are clear, no septal hematoma, no dental or oral injury, airway is normal and with normal occlusion, No bony tenderness RESP: Chest patient has some mild tenderness at the left lateral rib 8 very localized but not able to reproduce on rechecked. And has symmetric movement, no ecchymosis, breath sounds are normal no crackles, wheezes or rales CVS: Heart sounds are normal, no murmur noted, No JVD. ABG/GI: Nontender, soft, normal bowel sounds, no distention, no organomegaly. NEURO: Oriented AOx3, neuro is grossly intact, sensation and motor is normal all 4 extremities moving, cranial nerves II through XII are intact, GCS is 15 PSYCH: Normal mood and affect SKIN: Intact, warm and dry, no crepitus and without decubitus BACK: No CVA tenderness, no vertebral tenderness, no step-off's, no crepitus EXT: Patient has deformity of the left clavicle, no tenting, there is some ecchymosis, patient is mildly tender over that region. She is currently and a sling. Highway Safety Engineer are equal bilaterally, patient has 2+ radial pulse on the left, has normal range of motion of her hand and wrist. Hips are nontender, no pedal edema, normal color and temperature, normal range of motion of extremities with normal tendon exam, 2+ pulses in all four extremities Initial Vital Signs Initial Vital Signs: Vital Signs Temperature 97.1 F L 06/09/24 18:49 Pulse Rate 68 06/09/24 18:49 Respiratory Rate 15 06/09/24 18:49 Blood Pressure 120/56 L 06/09/24 18:49 Pulse Oximetry 98 06/09/24 18:49 Oxygen Delivery Method Room Air 06/09/24 18:49 Course Orders Ordered: Discontinued Medications Acetaminophen (Acetaminophen 325 Mg Tablet) 975 mg PO NOW ONE Stop: 06/09/24 20:10 Last Admin: 06/09/24 20:15 Dose: 975 mg Documented By: OZ Diphtheria/Tetanus/Acell Pertussis (Tet,Diph,Pertuss(Acell),Vac/Pf 0.5 Ml Syringe) 0.5 ml IM .ONCE ONE Stop: 06/09/24 21:49 Last Admin: 06/09/24 21:53 Dose: 0.5 ml Documented By: PEDRO Vital Signs Vital signs: Vital Signs - 8 hr 06/09/24 22:22 Pulse Rate 70 Respiratory Rate 18 Blood Pressure 143/72 H Pulse Oximetry 98 Oxygen Delivery Method Room Air MDM - Extremity Injury (Upper) Imaging Data Extremity x-ray #1: Radiologist's Impression: [address] [address] XRay Report Signed Patient: Daina Pennington MR#: [id number] : 1950 Acct:[id number] Age/Sex: 73 / F Date of Service: 06/09/24 Loc: ED Accession Number: [id number] Procedure: XR shoulder LT min 2V Ordering Provider: Alta Bonds D.O. PROCEDURE: XR SHOULDER LT MIN 2V INDICATIONS: fall TECHNIQUE: 4 views of the shoulder were acquired. COMPARISON: [facility], MR, MR SHOULDER LEFT WITHOUT CONTRAST, 11/13/2023, 7:35. [facility], CR, XR SHOULDER RT 1V, 05/12/2024, 12:23. [facility], CR, XR SHOULDER RT MIN 2V, 07/15/2023, 11:18. FINDINGS: Acute, comminuted, left distal clavicular fracture with overriding. The coracoclavicular and acromioclavicular intervals are preserved. Enthesopathy along the greater tuberosity of the humerus. No proximal humeral fracture. Multiple, age indeterminate, minimally displaced left-sided rib fractures. The visualized left hemithorax is within normal limits. IMPRESSION: 1. Acute, comminuted left distal clavicular fracture with overriding. 2. Age-indeterminate, minimally displaced left-sided rib fractures. Please correlate for point tenderness. Dictated by: Rusty Diana M.D. on 06/09/2024 at 20:55 Approved by: Rusty Diana M.D. on 06/09/2024 at 21:00 [facility] Narrative Medical decision making narrative: 73-year-old female with left clavicle fracture, patient did have left rib tenderness at rib 6, not able to be reproduced on recheck, no bruising or ecchymosis but did have an abrasion on the upper left thoracic region. She defers chest x-ray. Has a lungs are clear on examination and I am able to reproduce it on repeat. Does have an abrasion present tetanus was updated. Shoulder x-ray shows a acute comminuted left distal crab clavicle fracture with overriding. Age indeterminate minimum bit of sides left-sided rib fractures. Spoke with Dr. May, orthopedic surgery reviewed x-ray findings. Discussed no tenting but patient does have portions that might require surgical repair. Patient has been placed in sling and patient is to call and set up follow up as outpatient. Reviewed all this with the patient and family at bedside they feel comfortable with the plan. Discussed return precautions. Discharge Plan Departure Patient Disposition: Home Clinical Impression: Fracture of clavicle Instructions: DI for Clavicle Fracture-Adult Activity Restrictions/Additional Instructions: Follow up with Orthopedic surgery for recheck. Please call to set up an appointment. You can take acetaminophen up to a 1000 mg every 6 hours needed for pain. You can use your on chronic pain medication at home with this medication if there is no Tylenol or APAP included in the oxycodone. OK to use ice pack on the affected body part. Use for 15-20 minutes each time, for 5-6x per day. If you develop worsening pain, numbness, tingling, discoloration of the affected body part, just the sling and either see your doctor for an urgent re-assessment, or return to the Emergency Department. Return to the Emergency Department for any new or worsening symptoms. Prescriptions: No Action aripiprazole [Abilify] 5 mg tablet 5 mg PO DAILY amlodipine 2.5 mg tablet 2.5 mg PO DAILY Qty: 90 3RF lisinopril 5 mg tablet 5 mg PO DAILY Qty: 90 3RF levothyroxine 100 mcg tablet 100 mcg PO DAILY Qty: 90 3RF rosuvastatin 10 mg tablet 10 mg PO DAILY Qty: 90 3RF fluoxetine [Prozac] 20 mg capsule 60 mg PO DAILY modafinil 200 mg tablet 100 mg PO DAILY solifenacin 5 mg tablet 5 mg PO DAILY Qty: 90 3RF clonazepam 0.5 mg tablet 0.5 mg PO PRN PRN (Reason: Sleep) Referrals: Filippo Saldivar MD [Physician] - Nba Kessler MD [Primary Care Provider] - Stand Alone Forms: Patient Portal/API
[2024-06-09] MEDS: TET,DIPH,PERTUSS(ACELL),VAC/PF 0.5 ML SYRINGE IM (21:53)
[2024-06-09 22:22] VITALS: BP 143/72; PULSE 70; RESP 18; O2SAT 98
== END 2024-06-09 22:23 | disposition home or self-care (01) ==
PROVIDERS: Emergency Provider Emergency Medicine; Family Provider Internal Medicine; PCP Internal Medicine
DX: S42.032A Displaced fracture of lateral end of left clavicle, initial encounter for closed fracture (principal); S22.42XA Multiple fractures of ribs, left side, initial encounter for closed fracture; W18.30XA Fall on same level, unspecified, initial encounter; Z23 Encounter for immunization
CPT/HCPCS: 73030; 90471; 99283; 99284; 90715

== ENCOUNTER → 2024-07-19 16:51 | Outpatient (CLI) | payer MEDICARE, OTHER, SELFPAY ==
[2024-07-19 18:30] LABS: BUN Creatinine Ratio 28.8 (6-22); Blood Urea Nitrogen 15 mg/dL (7-17); Calcium 9.4 mg/dL (8.4-10.2); Carbon Dioxide 28 mmol/L (22-32); Chloride 94 mmol/L (98-107); Estimated Glomerular Filt Rate > 60 mL/min (>60); Glucose 81 mg/dL (80-110); HEMOLYSIS < 15 (0-50); Potassium 4.4 mmol/L (3.4-5.1); Sodium 124 mmol/L (137-145)
== END ==
PROVIDERS: Family Provider Internal Medicine; PCP Internal Medicine; Referring Provider Internal Medicine; Visit Provider Internal Medicine
DX: E87.8 Other disorders of electrolyte and fluid balance, not elsewhere classified (principal)
CPT/HCPCS: 36415; 80048

== ENCOUNTER → 2024-08-29 14:34 | Outpatient (CLI) | payer MEDICARE, OTHER, SELFPAY ==
[2024-08-29 15:39] LABS: BUN Creatinine Ratio 24.6 (6-22); Blood Urea Nitrogen 15 mg/dL (7-17); Calcium 9.5 mg/dL (8.4-10.2); Carbon Dioxide 29 mmol/L (22-32); Chloride 98 mmol/L (98-107); Estimated Glomerular Filt Rate > 60 mL/min (>60); Glucose 88 mg/dL (80-110); HEMOLYSIS < 15 (0-50); Potassium 4.4 mmol/L (3.4-5.1); Sodium 132 mmol/L (137-145)
== END ==
PROVIDERS: Family Provider Internal Medicine; PCP Internal Medicine; Referring Provider Internal Medicine; Visit Provider Internal Medicine
DX: E87.1 Hypo-osmolality and hyponatremia (principal)
CPT/HCPCS: 80048

== ENCOUNTER 2024-11-02 13:45 | Outpatient (RCR) | payer MEDICARE, OTHER, SELFPAY ==
--- NOTE | 2024-09-16 15:55 | PT.OIE ---
Current Diagnoses Other chronic pain (09/16/24) Stiffness of right shoulder, not elsewhere classified (09/16/24) Stiffness of left shoulder, not elsewhere classified (09/16/24) Stiffness of other specified joint, not elsewhere classified (09/16/24) Radiculopathy, cervical region (09/16/24) Low back pain, unspecified (09/16/24) Unsteadiness on feet (09/16/24) Unspecified abnormalities of gait and mobility (09/16/24) Other lack of coordination (09/16/24) Other symptoms and signs involving the musculoskeletal system (09/16/24) Weakness (09/16/24) Past Medical History (Last Updated 09/19/24 @ 12:17 by Nba Kessler MD) Acquired hypothyroidism Age-related osteoporosis without current pathological fracture Chronic insomnia Chronic low back pain Colitis Depression, major, recurrent Essential hypertension Gait abnormality Generalized anxiety disorder Hearing loss (~2015) Hip osteoarthritis History of colonic polyps History of urinary incontinence (~2020) Irritable bowel syndrome Left arm weakness Left cervical radiculopathy Lumbar disc disease Lymphocytic colitis Mixed hyperlipidemia Right rotator cuff tear Scoliosis Urinary incontinence Past Surgical History (Last Reviewed 09/19/24 @ 12:05 by Nba Kessler MD) History of bilateral breast implants History of facelift History of hip replacement History of toe surgery S/P rotator cuff repair (~08/2023) Visit Care Team Role Provider Type Nba Kessler MD Attending Provider Physician Family Provider Primary Care Provider Referring Provider Specialty: Internal Medicine Address: [address] [place] [address], [facility] Email: [email or web address] Physical Therapy Initial Evaluation PT-OP-A Visit Information Start: 09/15/24 16:24 Freq: Status: Active Protocol: Document 09/16/24 07:29 NM (Rec: 09/16/24 11:28 NM [id number]) Out-Patient Physical Therapy Visit Information Visit Information Visit Type Initial Evaluation Visit Start Time 07:32 Visit Stop Time 08:15 Visit Number 1 Evaluation Information Evaluation Date 09/16/24 Precautions Precautions Hx R rTSA 04/2024, fall risk & hx of falls, scoliosis PT-OP-B Current Condition Start: 09/15/24 16:24 Freq: Status: Active Protocol: Document 09/16/24 07:29 NM (Rec: 09/16/24 11:28 NM [id number]) Current Condition History of Current Condition Onset Date 2023 Current Complaints pain, twisted spine History of Current Condition Pt presents with intermittent pain in her midthoracic spine and cervical spine. Denies low back pain at this time. She reports that it aches with sitting (e.g. playing cards) especially if sitting for long periods of time. Pt reports that these areas have been bothering her since her last year when she fell at her hotel in [place] when she fell off a step in the middle of the night; she hit her R head and neck. She did not go to the ED. She reports that her L hand reacts slowly to her brain since then, most affected at her wrist and fingers. No numbness or tingling into L hand. Reports no hand strength, but attributes to arthritis. Pt reports currently in PT at [facility] for her shoulder ROM. She reports that her upper torso is twisted to the L. Hx of R rTSA, fall on L side with hx of fracture to L clavicle; hx breast implants, reports that they twist her . Hx of at least 2 falls in 2023 (missed step, struggling to get clothes on following getting out of sauna). Prior Treatments and Tests Has had cervical MRI, brain MRI following fall, in addition to a NCS Cervical spine MRI 02/2024: Impression - multilevel degenerative disease throughout cervical spine as described above. Worse level is at C5-C6 which demonstrates small L paracentral disc protrusion that mildly effaces the ventral thecan sac and abuts the ventral spine cord. At the C6-7 level, there is a left subarticular disc protrusion that results in moderate stenosis of the L foramen. There is a reversal of cervical lordosis. This finding can be seen in patients with muscle spasms. L shoulder x-ray 05/2024: Impression- Acute communited distal L clavicular fracture with overriding. Age- indeterminate, minimally- displaced L sided rib fractures. Please correlate for point tenderness. Current Functional Impairments (Reported) Functional Limitations- ADL's assists with showering, shampooing hair, dressing Functional Limitations- Recreation/ playing piano Hobbies PT-OP-C Subjective Start: 09/15/24 16:24 Freq: Status: Active Protocol: Document 09/16/24 07:29 NM (Rec: 09/16/24 11:28 NM [id number]) OP-PT Subjective Patient Comments Patient Comments Pt consents to participate in PT evaluation Patient Questionnaires ABC- Activity Specific Balance Confidence Scale ABC Score 49.3% Neck Disability Index NDI Score 38/100 Oswestry Low Back Index Oswestry Score 38/100 Quick Dash- Upper Extremity Quick Dash UE Score 72.7% Other Questionnaire Name and Score Falls Efficacy Scale: 3164 OP-PT Pain Assessment Location thoracic spine Pain Location Details scapula L muscles Description Aching,Dull Description- Other tightness Frequency Intermittent Pain Aggravating Factors Sitting,Walking Pain Alleviating Factors Cold,Heat,Massage Other Pain Alleviating Factors ice w/ compression cervical spine Pain Location Details L sided muscles, midline Description Aching Description- Other stiffness Frequency Intermittent Radiating Location to R hand Pain Aggravating Factors Sitting Other Pain Aggravating Factors forward head Pain Alleviating Factors Cold,Heat,Massage PT-OP-D Balance Start: 09/16/24 15:52 Freq: Status: Active Protocol: Document 09/16/24 07:29 NM (Rec: 09/16/24 16:07 NM [id number]) Balance Tests James Balance Test James Balance Test Score 38/56 PT-OP-E Functional Tests Start: 09/15/24 16:24 Freq: Status: Active Protocol: Document 09/16/24 07:29 NM (Rec: 09/16/24 16:07 NM [id number]) Functional Tests Timed Up and Go (TUG) Score 11 seconds Comments unsteadiness on turns, CGA PT-OP-F Manual Assessment Start: 09/15/24 16:24 Freq: Status: Active Protocol: Document 09/16/24 07:29 NM (Rec: 09/16/24 11:28 NM [id number]) Manual Assessments Soft Tissue Assessment Soft Tissue Mobility Assessment restrictions at shoulder muscles, periscapulars, cervical spine, Joint Mobility Assessment Joint Mobility Assessment L scap 8 cm, winging; R 9 cm; L rib hump posterior PT-OP-G Mobility & Gait Start: 09/15/24 16:24 Freq: Status: Active Protocol: Document 09/16/24 07:29 NM (Rec: 09/16/24 11:28 NM [id number]) OP Gait Assessment Comments Gait Comments Antalgic, limited foot clearance on L side PT-OP-H Neuro Start: 09/15/24 16:24 Freq: Status: Active Protocol: Document 09/16/24 07:29 NM (Rec: 09/16/24 16:07 NM [id number]) Coordination Evaluation Upper Extremity Tests Right Finger Opposition Test Minimal Impairment Pronation/Supination Test Normal Performance Left Finger Opposition Test Severe Impairment Pronation/Supination Test Moderate Impairment PT-OP-J Posture/Palpation/Skin Start: 09/15/24 16:24 Freq: Status: Active Protocol: Document 09/16/24 07:29 NM (Rec: 09/16/24 11:28 NM [id number]) Palpation Assessment Location thoracic spine Palpation Details tenderness and restrictions along L paraspinals and periscapulars, pec, levator scapula, trapezius, lat rib hump posteriorly on L slide, more posterior and lateral rotation to L spinal curve, winging of L scapula cervical spine Palpation Details tenderness at cervical spine, paraspinals especially L side tightness at paraspinals PT-OP-K Range of Motion Start: 09/15/24 16:24 Freq: Status: Active Protocol: Document 09/16/24 07:29 NM (Rec: 09/16/24 11:28 NM [id number]) Cervical Spine Range of Motion Cervical Spine Active Degrees Flexion 40 Extension 45 Rotation Left 48 Rotation Right 50 Lateral Flexion Left 20 Lateral Flexion Right 20 Lumbar Spine Range of Motion Lumbar Spine Active Percentage Testing Position Sitting Flexion 100 Extension 25 Rotation Left 50 Rotation Right 20 Lateral Flexion Left 50 Lateral Flexion Right 50 Comments Thoracic spine: L rot 8 cm, R rot 3 cm; 100% flex, 25% ext, 50% lateral flexion R rotation and B lateral flexion Shoulder Goniometric Range of Motion Shoulder ROM Limitations Shoulder ROM Limitations Soft Tissue Tightness Comments Limited bilaterally, not formally measured due to R shoulder precautions and time constraints Wrist Goniometric Range of Motion ROM Limitations Comments observable limitations in L wrist AROM PT-OP-L Special Tests Start: 09/15/24 16:24 Freq: Status: Active Protocol: Document 09/16/24 07:29 NM (Rec: 09/16/24 11:28 NM [id number]) Special Tests Cervical Spine Special Tests cervical rotation lateral flexion Test Results + Comments B Traction Test Results - Comments stretching in post spine; no change in neck Spurling's Test Test Results - PT-OP-M Strength Start: 09/15/24 16:24 Freq: Status: Active Protocol: Document 09/16/24 07:29 NM (Rec: 09/16/24 11:28 NM [id number]) Cervical Spine Strength Cervical Spine Manual Muscle Testing Flexion (C1-2) 3 Fair Extension 3 Fair Rotation Left 3 Fair Rotation Right 3 Fair Lateral Flexion Left (C3) 3 Fair Lateral Flexion Right (C3) 3 Fair Trunk Strength Trunk Manual Muscle Testing Flexion 3 Fair Extension 3 Fair Rotation Left 3 Fair Rotation Right 3 Fair Lateral Flexion Left 3 Fair Lateral Flexion Right 3 Fair Comments Challenging to stabilize Shoulder Strength Shoulder Manual Muscle Testing Right Flexion 3 Fair Abduction (C5) 3 Fair External Rotation 3 Fair Internal Rotation 3 Fair Comments Not tested with resistance d/t pt surgical hx; IR to neutral at belly Left Flexion 3 Fair Abduction (C5) 3 Fair External Rotation 3 Fair Internal Rotation 3 Fair Comments IR to neutral at belly PT-OP-Q Treatments Start: 09/15/24 16:24 Freq: Status: Active Protocol: Document 09/16/24 07:29 NM (Rec: 09/16/24 16:07 NM [id number]) Therapeutic Activity Therapeutic Activity Sitting Ergonomics Reps/Minutes 8 min Comments Education, handout, and set up on sitting ergonomics for home, car, and office. Emphasis on decreasing thoracic flexion posture and to decrease sustained cervical flexion Education and set up for sitting ergonomics for neutral spine positioning to avoid shifting and rotating due to scoliosis PT-OP-T Assessment and Plan Start: 09/15/24 16:24 Freq: Status: Active Protocol: Document 09/16/24 07:29 NM (Rec: 09/16/24 16:07 NM [id number]) Physical Therapy Assessment Rehab Potential Rehabilitation Potential Good Goals Three Impairment not performing HEP Mcc Goal (LTG) Pt will be IND with HEP at least 3x/wk in order to improve symptom management LTG Duration 8 weeks Two Impairment James 38/56 indicates fall risk ; TUG 11 seconds Short Term Goal (STG) Pt will be educated on strategies to reduce fall risk in order to improve safety during mobility STG Duration 4 weeks Mcc Goal (LTG) Pt will increase James balance score >42/56 in order to demonstrate decreased fall risk LTG Duration 8 weeks One Impairment cervical rotation ROM Mcc Goal (LTG) Pt will increase B cervical spine rotation to at least 60 deg in order to improve visual scanning LTG Duration 8 weeks Assessment Summary Assessment Pt is a 74 y.o. presenting with cervical spine pain, thoracic spine pain, L scapular pain, and balance/ gait impairments. She has a hx of falls. Her James balance score is 38/56, indicating increased fall risk; TUG time is WFL but she demonstrates unsteadiness during turns and needs contact assist to prevent fall. Pt has limitations in cervical and thoracolumbar spine ROM and strength. No symptom provocation with vertebral compression or relief cervical traction. Posturally has thoracic scoliosis with prominent L thoracic rotation that further restricts movements. Pt has hx of LUE ROM/weakness and incoordination compared to RUE following a fall in 2023; pt has hx of clavicle fracture to same side. Would benefit from further assessment of L shoulder/hand including possible injury to brachial plexus and/or neurological evaluation; needs referral for PT evaluation. Pt also currently being seen at another PT clinic s/p R rTSA several months ago. PT educated pt on exam findings and plan of care. She would benefit from skilled PT for progressive mobility, strengthening, and balance training in order to decrease fall risk and improve symptom management. Physical Therapy Plan Frequency and Duration Frequency of Treatment 2x/Week Duration of treatment (weeks) 8 Plan of Care Start Date 09/16/24 Plan of Care End Date 11/11/24 Therapeutic Interventions Therapeutic Interventions Balance Training,Gait Training ,Home Exercise Program,Joint Mobilizations,Manual Therapy, Neuromuscular Re-education, Orthotic/Prosthetic Management ,Patient/Caregiver Education, Self-Care/Home Management, Sensory Integration,Soft Tissue Mobilization,Taping, Therapeutic Activities, Therapeutic Exercises, Vestibular Rehabilitation Modalities Cold Pack/Ice Massage,Electric Stimulation,Hot Packs, Ultrasound Next Visit Focus/Plan Next Note Type Treatment Note Next Visit Plan R rTSA precautions (no shoulder ext, no IR, no combination), limited L shoulder mobility/strength Avoid treatment of shoulders VA screen, orthostatic BP testing Initiate balance training. Provide HO for eliminating fall risk factors CS jelani, breathing treatment/ training manual tx to cervical spine, thoracic spine.
--- NOTE | 2024-09-21 15:40 | PT.OTN ---
Current Diagnoses Other chronic pain (09/21/24) Stiffness of right shoulder, not elsewhere classified (09/21/24) Stiffness of left shoulder, not elsewhere classified (09/21/24) Stiffness of other specified joint, not elsewhere classified (09/21/24) Radiculopathy, cervical region (09/21/24) Low back pain, unspecified (09/21/24) Unsteadiness on feet (09/21/24) Unspecified abnormalities of gait and mobility (09/21/24) Other lack of coordination (09/21/24) Other symptoms and signs involving the musculoskeletal system (09/21/24) Weakness (09/21/24) Physical Therapy Treatment Note PT-OP-A Visit Information Start: 09/15/24 16:24 Freq: Status: Active Protocol: Document 09/21/24 09:11 NM (Rec: 09/21/24 09:51 NM [id number]) Out-Patient Physical Therapy Visit Information Visit Information Visit Type Treatment Note Visit Start Time 09:11 Visit Stop Time 09:45 Visit Number 2 Evaluation Information Evaluation Date 09/16/24 Precautions Precautions Hx R rTSA 04/2024, fall risk & hx of falls, scoliosis PT-OP-B Current Condition Start: 09/15/24 16:24 Freq: Status: Active Protocol: Document 09/16/24 07:29 NM (Rec: 09/16/24 11:28 NM [id number]) Current Condition History of Current Condition Onset Date 2023 Current Complaints pain, twisted spine History of Current Condition Pt presents with intermittent pain in her midthoracic spine and cervical spine. Denies low back pain at this time. She reports that it aches with sitting (e.g. playing cards) especially if sitting for long periods of time. Pt reports that these areas have been bothering her since her last year when she fell at her hotel in [place] when she fell off a step in the middle of the night; she hit her R head and neck. She did not go to the ED. She reports that her L hand reacts slowly to her brain since then, most affected at her wrist and fingers. No numbness or tingling into L hand. Reports no hand strength, but attributes to arthritis. Pt reports currently in PT at [facility] for her shoulder ROM. She reports that her upper torso is twisted to the L. Hx of R rTSA, fall on L side with hx of fracture to L clavicle; hx breast implants, reports that they twist her . Hx of at least 2 falls in 2023 (missed step, struggling to get clothes on following getting out of sauna). Prior Treatments and Tests Has had cervical MRI, brain MRI following fall, in addition to a NCS Cervical spine MRI 02/2024: Impression - multilevel degenerative disease throughout cervical spine as described above. Worse level is at C5-C6 which demonstrates small L paracentral disc protrusion that mildly effaces the ventral thecan sac and abuts the ventral spine cord. At the C6-7 level, there is a left subarticular disc protrusion that results in moderate stenosis of the L foramen. There is a reversal of cervical lordosis. This finding can be seen in patients with muscle spasms. L shoulder x-ray 05/2024: Impression- Acute communited distal L clavicular fracture with overriding. Age- indeterminate, minimally- displaced L sided rib fractures. Please correlate for point tenderness. Current Functional Impairments (Reported) Functional Limitations- ADL's assists with showering, shampooing hair, dressing Functional Limitations- Recreation/ playing piano Hobbies PT-OP-C Subjective Start: 09/15/24 16:24 Freq: Status: Active Protocol: Document 09/21/24 09:11 NM (Rec: 09/21/24 09:51 NM [id number]) OP-PT Subjective Patient Comments Patient Comments Pt late to session d/t eileen, so decreased time. She reports increased anxiety due to her conditions. She reports that they planned to have her L clavicle heal naturally, no further intervention; confirms that had changes to her L hand occurred before that fracture. Has not had appt with neurologist as referral was refused by their office. PT-OP-D Balance Start: 09/16/24 15:52 Freq: Status: Active Protocol: Document 09/16/24 07:29 NM (Rec: 09/16/24 16:07 NM [id number]) Balance Tests James Balance Test James Balance Test Score 38/56 PT-OP-E Functional Tests Start: 09/15/24 16:24 Freq: Status: Active Protocol: Document 09/16/24 07:29 NM (Rec: 09/16/24 16:07 NM [id number]) Functional Tests Timed Up and Go (TUG) Score 11 seconds Comments unsteadiness on turns, CGA PT-OP-F Manual Assessment Start: 09/15/24 16:24 Freq: Status: Active Protocol: Document 09/16/24 07:29 NM (Rec: 09/16/24 11:28 NM [id number]) Manual Assessments Soft Tissue Assessment Soft Tissue Mobility Assessment restrictions at shoulder muscles, periscapulars, cervical spine, Joint Mobility Assessment Joint Mobility Assessment L scap 8 cm, winging; R 9 cm; L rib hump posterior PT-OP-G Mobility & Gait Start: 09/15/24 16:24 Freq: Status: Active Protocol: Document 09/16/24 07:29 NM (Rec: 09/16/24 11:28 NM [id number]) OP Gait Assessment Comments Gait Comments Antalgic, limited foot clearance on L side PT-OP-H Neuro Start: 09/15/24 16:24 Freq: Status: Active Protocol: Document 09/21/24 09:11 NM (Rec: 09/21/24 09:51 NM [id number]) Sensation Evaluation Comments Summary Comments decreased Lhand Deep Tendon Reflex & Clonus Assessment Deep Tendon Reflex Left Brachioradialis Deep Tendon Reflex 3+ Normal But Brisk Left Tricep Deep Tendon Reflex 3+ Normal But Brisk Left Bicep Deep Tendon Reflex 3+ Normal But Brisk PT-OP-J Posture/Palpation/Skin Start: 09/15/24 16:24 Freq: Status: Active Protocol: Document 09/16/24 07:29 NM (Rec: 09/16/24 11:28 NM [id number]) Palpation Assessment Location thoracic spine Palpation Details tenderness and restrictions along L paraspinals and periscapulars, pec, levator scapula, trapezius, lat rib hump posteriorly on L slide, more posterior and lateral rotation to L spinal curve, winging of L scapula cervical spine Palpation Details tenderness at cervical spine, paraspinals especially L side tightness at paraspinals PT-OP-K Range of Motion Start: 09/15/24 16:24 Freq: Status: Active Protocol: Document 09/16/24 07:29 NM (Rec: 09/16/24 11:28 NM [id number]) Cervical Spine Range of Motion Cervical Spine Active Degrees Flexion 40 Extension 45 Rotation Left 48 Rotation Right 50 Lateral Flexion Left 20 Lateral Flexion Right 20 Lumbar Spine Range of Motion Lumbar Spine Active Percentage Testing Position Sitting Flexion 100 Extension 25 Rotation Left 50 Rotation Right 20 Lateral Flexion Left 50 Lateral Flexion Right 50 Comments Thoracic spine: L rot 8 cm, R rot 3 cm; 100% flex, 25% ext, 50% lateral flexion R rotation and B lateral flexion Shoulder Goniometric Range of Motion Shoulder ROM Limitations Shoulder ROM Limitations Soft Tissue Tightness Comments Limited bilaterally, not formally measured due to R shoulder precautions and time constraints Wrist Goniometric Range of Motion ROM Limitations Comments observable limitations in L wrist AROM PT-OP-L Special Tests Start: 09/15/24 16:24 Freq: Status: Active Protocol: Document 09/21/24 09:11 NM (Rec: 09/21/24 09:51 NM [id number]) Special Tests Cervical Spine Special Tests vertebral artery screen Test Results 119/77 mmHg L brachial; no symptoms w/ positional testing ; CN 1-12 intact Comments carotid/cardiac ausc/palp WFL; will assess PN future sessions PT-OP-M Strength Start: 09/15/24 16:24 Freq: Status: Active Protocol: Document 09/16/24 07:29 NM (Rec: 09/16/24 11:28 NM [id number]) Cervical Spine Strength Cervical Spine Manual Muscle Testing Flexion (C1-2) 3 Fair Extension 3 Fair Rotation Left 3 Fair Rotation Right 3 Fair Lateral Flexion Left (C3) 3 Fair Lateral Flexion Right (C3) 3 Fair Trunk Strength Trunk Manual Muscle Testing Flexion 3 Fair Extension 3 Fair Rotation Left 3 Fair Rotation Right 3 Fair Lateral Flexion Left 3 Fair Lateral Flexion Right 3 Fair Comments Challenging to stabilize Shoulder Strength Shoulder Manual Muscle Testing Right Flexion 3 Fair Abduction (C5) 3 Fair External Rotation 3 Fair Internal Rotation 3 Fair Comments Not tested with resistance d/t pt surgical hx; IR to neutral at belly Left Flexion 3 Fair Abduction (C5) 3 Fair External Rotation 3 Fair Internal Rotation 3 Fair Comments IR to neutral at belly PT-OP-Q Treatments Start: 09/15/24 16:24 Freq: Status: Active Protocol: Document 09/21/24 09:11 NM (Rec: 09/21/24 09:51 NM [id number]) Therapeutic Activity Therapeutic Activity orthostatic hypotension Reps/Minutes 20 min Comments supine L arm: 128/79 mmHg standin/78 mmHg Asymptomatic with transition to standing. See neuro, sensation, special tests etc for remainder of assessment. Education and rationale provided for testing following based on pt hx of falls, especially from hot tub. Education provided about changes to blood pressure with change in position especially with changes in temperature. Education provided to pt about fall risk reduction with sauna use, positional changes, etc. Neuro Re-Education Treatment Balance Activities SLS Surface w/ B hand support > 1 finger support Comments 1. for time: several seconds without UE support, stable surface 2. 1 finger support: 4x30 ea w/ diminishing support Cueing for core brace, tall posture, gluteal activation. Increased unsteadiness initially and with less support. Very dependent on visual contact. Cueing for tall posture, still requires increased time for transition between BLE and initial set up , instructions heel/toe raises Details HEP Equipment 2 finger support on counter Comments 1. heel raises, 2x10 ea 2. toe raises, 2x10 ea Brief hold at end range. Requires increased time with set up, instructions and frequent feedback due to anxiety about performance. L foot ROM more limited than R w/ ROM. Increased time required for all. PT-OP-T Assessment and Plan Start: 09/15/24 16:24 Freq: Status: Active Protocol: Document 09/21/24 09:11 NM (Rec: 09/21/24 09:51 NM [id number]) Physical Therapy Assessment Goals Three Impairment not performing HEP Cash Poster Goal (LTG) Pt will be IND with HEP at least 3x/wk in order to improve symptom management LTG Duration 8 weeks Two Impairment James 38/56 indicates fall risk ; TUG 11 seconds Short Term Goal (STG) Pt will be educated on strategies to reduce fall risk in order to improve safety during mobility STG Duration 4 weeks Cash Poster Goal (LTG) Pt will increase James balance score >42/56 in order to demonstrate decreased fall risk LTG Duration 8 weeks One Impairment cervical rotation ROM Mcfp Goal (LTG) Pt will increase B cervical spine rotation to at least 60 deg in order to improve visual scanning LTG Duration 8 weeks Assessment Summary Assessment Decreased session time due to pt lateness from [facility]. Continued assessment of reflexes, sensation, positional testing. No symptoms or significant drop in blood pressure with orthostatic testing based on pt hx and subjective about her previous falls. Education provided for safety to reduce fall risk with sauna and with positional changes. Initiated balance training with SLS and ankle strengthening to improve stability during gait. Pt has less ROM and strength on L ankle vs R. Increased time needed for set up and performance of all exercises. Pt very anxious about PT due to several significant injuries in 2023 and need consistent encouragement during session. PT educated pt briefly on mental health support for pt but will continue to address in future sessions. Physical Therapy Plan Frequency and Duration Frequency of Treatment 2x/Week Duration of treatment (weeks) 8 Plan of Care Start Date 09/16/24 Plan of Care End Date 11/11/24 Therapeutic Interventions Therapeutic Interventions Balance Training,Gait Training ,Home Exercise Program,Joint Mobilizations,Manual Therapy, Neuromuscular Re-education, Orthotic/Prosthetic Management ,Patient/Caregiver Education, Self-Care/Home Management, Sensory Integration,Soft Tissue Mobilization,Taping, Therapeutic Activities, Therapeutic Exercises, Vestibular Rehabilitation Modalities Cold Pack/Ice Massage,Electric Stimulation,Hot Packs, Ultrasound Next Visit Focus/Plan Next Note Type Treatment Note Next Visit Plan R rTSA precautions (no shoulder ext, no IR, no combination), limited L shoulder mobility/strength Avoid treatment of shoulders. Can treat CS, TS, balance/gait only Initiate balance training: SLS , tandem, stable, unstable, hurdles, head turns, eyes open /closed, stairs, stepping over /around objects. Provide HO for eliminating fall risk factors CS jelani, ROM. breathing treatment/training. Elongation of L TS side, strengthen R TS . Strengthening BLE: leg press , step ups, sitting and standing hip strength/knee strength/ankle strength with respect to balance manual tx to cervical spine, thoracic spine.
--- NOTE | 2024-09-23 10:30 | PT.OTN ---
Current Diagnoses Other chronic pain (09/23/24) Stiffness of right shoulder, not elsewhere classified (09/23/24) Stiffness of left shoulder, not elsewhere classified (09/23/24) Stiffness of other specified joint, not elsewhere classified (09/23/24) Radiculopathy, cervical region (09/23/24) Low back pain, unspecified (09/23/24) Unsteadiness on feet (09/23/24) Unspecified abnormalities of gait and mobility (09/23/24) Other lack of coordination (09/23/24) Other symptoms and signs involving the musculoskeletal system (09/23/24) Weakness (09/23/24) Physical Therapy Treatment Note PT-OP-A Visit Information Start: 09/15/24 16:24 Freq: Status: Active Protocol: Document 09/23/24 09:49 SP (Rec: 09/23/24 10:41 SP [id number]) Out-Patient Physical Therapy Visit Information Visit Information Visit Type Treatment Note Visit Start Time 09:49 Visit Stop Time 10:30 Visit Number 3 Number of SENIOR JAVASCRIPT DEVELOPER Visits 1 Evaluation Information Evaluation Date 09/16/24 Precautions Precautions Hx R rTSA 04/2024, fall risk & hx of falls, scoliosis PT-OP-B Current Condition Start: 09/15/24 16:24 Freq: Status: Active Protocol: Document 09/16/24 07:29 NM (Rec: 09/16/24 11:28 NM [id number]) Current Condition History of Current Condition Onset Date 2023 Current Complaints pain, twisted spine History of Current Condition Pt presents with intermittent pain in her midthoracic spine and cervical spine. Denies low back pain at this time. She reports that it aches with sitting (e.g. playing cards) especially if sitting for long periods of time. Pt reports that these areas have been bothering her since her last year when she fell at her hotel in [place] when she fell off a step in the middle of the night; she hit her R head and neck. She did not go to the ED. She reports that her L hand reacts slowly to her brain since then, most affected at her wrist and fingers. No numbness or tingling into L hand. Reports no hand strength, but attributes to arthritis. Pt reports currently in PT at [facility] for her shoulder ROM. She reports that her upper torso is twisted to the L. Hx of R rTSA, fall on L side with hx of fracture to L clavicle; hx breast implants, reports that they twist her . Hx of at least 2 falls in 2023 (missed step, struggling to get clothes on following getting out of sauna). Prior Treatments and Tests Has had cervical MRI, brain MRI following fall, in addition to a NCS Cervical spine MRI 02/2024: Impression - multilevel degenerative disease throughout cervical spine as described above. Worse level is at C5-C6 which demonstrates small L paracentral disc protrusion that mildly effaces the ventral thecan sac and abuts the ventral spine cord. At the C6-7 level, there is a left subarticular disc protrusion that results in moderate stenosis of the L foramen. There is a reversal of cervical lordosis. This finding can be seen in patients with muscle spasms. L shoulder x-ray 05/2024: Impression- Acute communited distal L clavicular fracture with overriding. Age- indeterminate, minimally- displaced L sided rib fractures. Please correlate for point tenderness. Current Functional Impairments (Reported) Functional Limitations- ADL's assists with showering, shampooing hair, dressing Functional Limitations- Recreation/ playing piano Hobbies PT-OP-C Subjective Start: 09/15/24 16:24 Freq: Status: Active Protocol: Document 09/23/24 09:49 SP (Rec: 09/23/24 10:41 SP [id number]) OP-PT Subjective Patient Comments Patient Comments Pt reports had a walk yesterday and neck really tight coming in today. She is scheduled for a massage later today. End Sep has a follow up with doc. Is leaving to go to [place] end of the month for about 2 weeks. She is seeing another PT for her R shoulder so trying not to have PT on same days. PT-OP-D Balance Start: 09/16/24 15:52 Freq: Status: Active Protocol: Document 09/16/24 07:29 NM (Rec: 09/16/24 16:07 NM [id number]) Balance Tests James Balance Test James Balance Test Score 38/56 PT-OP-E Functional Tests Start: 09/15/24 16:24 Freq: Status: Active Protocol: Document 09/16/24 07:29 NM (Rec: 09/16/24 16:07 NM [id number]) Functional Tests Timed Up and Go (TUG) Score 11 seconds Comments unsteadiness on turns, CGA PT-OP-F Manual Assessment Start: 09/15/24 16:24 Freq: Status: Active Protocol: Document 09/16/24 07:29 NM (Rec: 09/16/24 11:28 NM [id number]) Manual Assessments Soft Tissue Assessment Soft Tissue Mobility Assessment restrictions at shoulder muscles, periscapulars, cervical spine, Joint Mobility Assessment Joint Mobility Assessment L scap 8 cm, winging; R 9 cm; L rib hump posterior PT-OP-G Mobility & Gait Start: 09/15/24 16:24 Freq: Status: Active Protocol: Document 09/16/24 07:29 NM (Rec: 09/16/24 11:28 NM [id number]) OP Gait Assessment Comments Gait Comments Antalgic, limited foot clearance on L side PT-OP-H Neuro Start: 09/15/24 16:24 Freq: Status: Active Protocol: Document 09/21/24 09:11 NM (Rec: 09/21/24 09:51 NM [id number]) Sensation Evaluation Comments Summary Comments decreased Lhand Deep Tendon Reflex & Clonus Assessment Deep Tendon Reflex Left Brachioradialis Deep Tendon Reflex 3+ Normal But Brisk Left Tricep Deep Tendon Reflex 3+ Normal But Brisk Left Bicep Deep Tendon Reflex 3+ Normal But Brisk PT-OP-J Posture/Palpation/Skin Start: 09/15/24 16:24 Freq: Status: Active Protocol: Document 09/16/24 07:29 NM (Rec: 09/16/24 11:28 NM [id number]) Palpation Assessment Location thoracic spine Palpation Details tenderness and restrictions along L paraspinals and periscapulars, pec, levator scapula, trapezius, lat rib hump posteriorly on L slide, more posterior and lateral rotation to L spinal curve, winging of L scapula cervical spine Palpation Details tenderness at cervical spine, paraspinals especially L side tightness at paraspinals PT-OP-K Range of Motion Start: 09/15/24 16:24 Freq: Status: Active Protocol: Document 09/16/24 07:29 NM (Rec: 09/16/24 11:28 NM [id number]) Cervical Spine Range of Motion Cervical Spine Active Degrees Flexion 40 Extension 45 Rotation Left 48 Rotation Right 50 Lateral Flexion Left 20 Lateral Flexion Right 20 Lumbar Spine Range of Motion Lumbar Spine Active Percentage Testing Position Sitting Flexion 100 Extension 25 Rotation Left 50 Rotation Right 20 Lateral Flexion Left 50 Lateral Flexion Right 50 Comments Thoracic spine: L rot 8 cm, R rot 3 cm; 100% flex, 25% ext, 50% lateral flexion R rotation and B lateral flexion Shoulder Goniometric Range of Motion Shoulder ROM Limitations Shoulder ROM Limitations Soft Tissue Tightness Comments Limited bilaterally, not formally measured due to R shoulder precautions and time constraints Wrist Goniometric Range of Motion ROM Limitations Comments observable limitations in L wrist AROM PT-OP-L Special Tests Start: 09/15/24 16:24 Freq: Status: Active Protocol: Document 09/21/24 09:11 NM (Rec: 09/21/24 09:51 NM [id number]) Special Tests Cervical Spine Special Tests vertebral artery screen Test Results 119/77 mmHg L brachial; no symptoms w/ positional testing ; CN 1-12 intact Comments carotid/cardiac ausc/palp WFL; will assess PN future sessions PT-OP-M Strength Start: 09/15/24 16:24 Freq: Status: Active Protocol: Document 09/16/24 07:29 NM (Rec: 09/16/24 11:28 NM [id number]) Cervical Spine Strength Cervical Spine Manual Muscle Testing Flexion (C1-2) 3 Fair Extension 3 Fair Rotation Left 3 Fair Rotation Right 3 Fair Lateral Flexion Left (C3) 3 Fair Lateral Flexion Right (C3) 3 Fair Trunk Strength Trunk Manual Muscle Testing Flexion 3 Fair Extension 3 Fair Rotation Left 3 Fair Rotation Right 3 Fair Lateral Flexion Left 3 Fair Lateral Flexion Right 3 Fair Comments Challenging to stabilize Shoulder Strength Shoulder Manual Muscle Testing Right Flexion 3 Fair Abduction (C5) 3 Fair External Rotation 3 Fair Internal Rotation 3 Fair Comments Not tested with resistance d/t pt surgical hx; IR to neutral at belly Left Flexion 3 Fair Abduction (C5) 3 Fair External Rotation 3 Fair Internal Rotation 3 Fair Comments IR to neutral at belly PT-OP-Q Treatments Start: 09/15/24 16:24 Freq: Status: Active Protocol: Document 09/23/24 09:49 SP (Rec: 09/23/24 10:41 SP [id number]) Gait Training Gait Activity dynamic gait Description dynamic gait: arm swing /c bigger stride, HTs, backward walking. Device Used 0 Distance/Duration several laps Treatment Focus stability Comments Initially instructed in front of mirror gentle arms swing and TS rotational mobility> transition hallway-finger glide if needed, CG>close SBA at first viered L with HT L then improved with cues feet apart. Cued marching step foot clearance during pivot turning with improvement demonstrated. Manual Therapy Treatment Consent Patient gave verbal consent for manual Yes treatment Soft Tissue Mobilization neck Body Location R>L UT, LS, CS paraspinals Mobilization Type Rolling Intensity/Depth Moderate Body Position Hooklying Comments STMs and CS rotation pnfree range. Improved neck mobility. Self-Care/Home Management Treatment Education Patient Education Body Mechanics,Home Exercise Program,Posture Other Education Provided image postural awarness and lbs pressure stress on neck/back for correction support. Education on arm swing and TS mobilility for improved gait and decrease stiffness and R scap/ neck tension reported reducation. Provided HO for gait. Also discussed telling partner assist reminders for postural mobility for help carryover. PT-OP-T Assessment and Plan Start: 09/15/24 16:24 Freq: Status: Active Protocol: Document 09/23/24 09:49 SP (Rec: 09/23/24 10:41 SP [id number]) Physical Therapy Assessment Goals Three Impairment not performing HEP Halfway Goal (LTG) Pt will be IND with HEP at least 3x/wk in order to improve symptom management LTG Duration 8 weeks Two Impairment James 38/56 indicates fall risk ; TUG 11 seconds Short Term Goal (STG) Pt will be educated on strategies to reduce fall risk in order to improve safety during mobility STG Duration 4 weeks Halfway Goal (LTG) Pt will increase James balance score >42/56 in order to demonstrate decreased fall risk LTG Duration 8 weeks One Impairment cervical rotation ROM Halfway Goal (LTG) Pt will increase B cervical spine rotation to at least 60 deg in order to improve visual scanning LTG Duration 8 weeks Assessment Summary Assessment Pt reports decreased neck tension end tx, SENIOR JAVASCRIPT DEVELOPER adjusted pressure, R>L UE CS parasinal tightness softened, able to turn head better with no pain. Initiated dynamic walking for progression midline stability with increased arm swing and stride wider ERICA, able to progress HTs and backward walking. DIscussed use finger on wall for home carryover. Pt is going OOT soon and reminder continue arms wing and rotational mobililty carryover with partner feedback support. Provided her personal phone video walking bigger arms swing and reminder elevated posture with seen improvement for partner to assist at home corrections.. Physical Therapy Plan Frequency and Duration Frequency of Treatment 2x/Week Duration of treatment (weeks) 8 Plan of Care Start Date 09/16/24 Plan of Care End Date 11/11/24 Therapeutic Interventions Therapeutic Interventions Balance Training,Gait Training ,Home Exercise Program,Joint Mobilizations,Manual Therapy, Neuromuscular Re-education, Orthotic/Prosthetic Management ,Patient/Caregiver Education, Self-Care/Home Management, Sensory Integration,Soft Tissue Mobilization,Taping, Therapeutic Activities, Therapeutic Exercises, Vestibular Rehabilitation Modalities Cold Pack/Ice Massage,Electric Stimulation,Hot Packs, Ultrasound Next Visit Focus/Plan Next Note Type Treatment Note Next Visit Plan R rTSA precautions (no shoulder ext, no IR, no combination), limited L shoulder mobility/strength Avoid treatment of shoulders. Can treat CS, TS, balance/gait only Initiate balance training: SLS , tandem, stable, unstable, hurdles, head turns, eyes open /closed, stairs, stepping over /around objects. Provide HO for eliminating fall risk factors CS jelani, ROM. breathing treatment/training. Elongation of L TS side, strengthen R TS . Next add: Strengthening BLE: leg press, step ups, sitting and standing hip strength/knee strength/ankle strength with respect to balance, check dynamic gait started last tx. manual tx to cervical spine, thoracic spine.
--- NOTE | 2024-09-27 09:46 | PT.OTN ---
Current Diagnoses Other chronic pain (09/27/24) Stiffness of right shoulder, not elsewhere classified (09/27/24) Stiffness of left shoulder, not elsewhere classified (09/27/24) Stiffness of other specified joint, not elsewhere classified (09/27/24) Radiculopathy, cervical region (09/27/24) Low back pain, unspecified (09/27/24) Unsteadiness on feet (09/27/24) Unspecified abnormalities of gait and mobility (09/27/24) Other lack of coordination (09/27/24) Other symptoms and signs involving the musculoskeletal system (09/27/24) Weakness (09/27/24) Physical Therapy Treatment Note PT-OP-A Visit Information Start: 09/15/24 16:24 Freq: Status: Active Protocol: Document 09/27/24 09:03 SP (Rec: 09/27/24 09:54 SP [id number]) Out-Patient Physical Therapy Visit Information Visit Information Visit Type Treatment Note Visit Start Time 09:03 Visit Stop Time 09:46 Visit Number 4 Number of CAREER GUIDANCE COUNSELOR Visits 2 Evaluation Information Evaluation Date 09/16/24 Precautions Precautions Hx R rTSA 04/2024, fall risk & hx of falls, scoliosis PT-OP-B Current Condition Start: 09/15/24 16:24 Freq: Status: Active Protocol: Document 09/16/24 07:29 NM (Rec: 09/16/24 11:28 NM [id number]) Current Condition History of Current Condition Onset Date 2023 Current Complaints pain, twisted spine History of Current Condition Pt presents with intermittent pain in her midthoracic spine and cervical spine. Denies low back pain at this time. She reports that it aches with sitting (e.g. playing cards) especially if sitting for long periods of time. Pt reports that these areas have been bothering her since her last year when she fell at her hotel in [place] when she fell off a step in the middle of the night; she hit her R head and neck. She did not go to the ED. She reports that her L hand reacts slowly to her brain since then, most affected at her wrist and fingers. No numbness or tingling into L hand. Reports no hand strength, but attributes to arthritis. Pt reports currently in PT at [facility] for her shoulder ROM. She reports that her upper torso is twisted to the L. Hx of R rTSA, fall on L side with hx of fracture to L clavicle; hx breast implants, reports that they twist her . Hx of at least 2 falls in 2023 (missed step, struggling to get clothes on following getting out of sauna). Prior Treatments and Tests Has had cervical MRI, brain MRI following fall, in addition to a NCS Cervical spine MRI 02/2024: Impression - multilevel degenerative disease throughout cervical spine as described above. Worse level is at C5-C6 which demonstrates small L paracentral disc protrusion that mildly effaces the ventral thecan sac and abuts the ventral spine cord. At the C6-7 level, there is a left subarticular disc protrusion that results in moderate stenosis of the L foramen. There is a reversal of cervical lordosis. This finding can be seen in patients with muscle spasms. L shoulder x-ray 05/2024: Impression- Acute communited distal L clavicular fracture with overriding. Age- indeterminate, minimally- displaced L sided rib fractures. Please correlate for point tenderness. Current Functional Impairments (Reported) Functional Limitations- ADL's assists with showering, shampooing hair, dressing Functional Limitations- Recreation/ playing piano Hobbies PT-OP-C Subjective Start: 09/15/24 16:24 Freq: Status: Active Protocol: Document 09/27/24 09:03 SP (Rec: 09/27/24 09:54 SP [id number]) OP-PT Subjective Patient Comments Patient Comments Pt reports got a massage after last tx and was really sore all over. She stated did give pressure feedback. She arrives noted bony protrusion R shld and wants CAREER GUIDANCE COUNSELOR take a peak. She sees Neurologist CAREY in end Sep maybe and hopes can get in sooner. She stated feels tightness in front thighs when stands up, what can she do to make better. PT-OP-D Balance Start: 09/16/24 15:52 Freq: Status: Active Protocol: Document 09/16/24 07:29 NM (Rec: 09/16/24 16:07 NM [id number]) Balance Tests James Balance Test James Balance Test Score 38/56 PT-OP-E Functional Tests Start: 09/15/24 16:24 Freq: Status: Active Protocol: Document 09/16/24 07:29 NM (Rec: 09/16/24 16:07 NM [id number]) Functional Tests Timed Up and Go (TUG) Score 11 seconds Comments unsteadiness on turns, CGA PT-OP-F Manual Assessment Start: 09/15/24 16:24 Freq: Status: Active Protocol: Document 09/16/24 07:29 NM (Rec: 09/16/24 11:28 NM [id number]) Manual Assessments Soft Tissue Assessment Soft Tissue Mobility Assessment restrictions at shoulder muscles, periscapulars, cervical spine, Joint Mobility Assessment Joint Mobility Assessment L scap 8 cm, winging; R 9 cm; L rib hump posterior PT-OP-G Mobility & Gait Start: 09/15/24 16:24 Freq: Status: Active Protocol: Document 09/16/24 07:29 NM (Rec: 09/16/24 11:28 NM [id number]) OP Gait Assessment Comments Gait Comments Antalgic, limited foot clearance on L side PT-OP-H Neuro Start: 09/15/24 16:24 Freq: Status: Active Protocol: Document 09/21/24 09:11 NM (Rec: 09/21/24 09:51 NM [id number]) Sensation Evaluation Comments Summary Comments decreased Lhand Deep Tendon Reflex & Clonus Assessment Deep Tendon Reflex Left Brachioradialis Deep Tendon Reflex 3+ Normal But Brisk Left Tricep Deep Tendon Reflex 3+ Normal But Brisk Left Bicep Deep Tendon Reflex 3+ Normal But Brisk PT-OP-J Posture/Palpation/Skin Start: 09/15/24 16:24 Freq: Status: Active Protocol: Document 09/16/24 07:29 NM (Rec: 09/16/24 11:28 NM [id number]) Palpation Assessment Location thoracic spine Palpation Details tenderness and restrictions along L paraspinals and periscapulars, pec, levator scapula, trapezius, lat rib hump posteriorly on L slide, more posterior and lateral rotation to L spinal curve, winging of L scapula cervical spine Palpation Details tenderness at cervical spine, paraspinals especially L side tightness at paraspinals PT-OP-K Range of Motion Start: 09/15/24 16:24 Freq: Status: Active Protocol: Document 09/16/24 07:29 NM (Rec: 09/16/24 11:28 NM [id number]) Cervical Spine Range of Motion Cervical Spine Active Degrees Flexion 40 Extension 45 Rotation Left 48 Rotation Right 50 Lateral Flexion Left 20 Lateral Flexion Right 20 Lumbar Spine Range of Motion Lumbar Spine Active Percentage Testing Position Sitting Flexion 100 Extension 25 Rotation Left 50 Rotation Right 20 Lateral Flexion Left 50 Lateral Flexion Right 50 Comments Thoracic spine: L rot 8 cm, R rot 3 cm; 100% flex, 25% ext, 50% lateral flexion R rotation and B lateral flexion Shoulder Goniometric Range of Motion Shoulder ROM Limitations Shoulder ROM Limitations Soft Tissue Tightness Comments Limited bilaterally, not formally measured due to R shoulder precautions and time constraints Wrist Goniometric Range of Motion ROM Limitations Comments observable limitations in L wrist AROM PT-OP-L Special Tests Start: 09/15/24 16:24 Freq: Status: Active Protocol: Document 09/21/24 09:11 NM (Rec: 09/21/24 09:51 NM [id number]) Special Tests Cervical Spine Special Tests vertebral artery screen Test Results 119/77 mmHg L brachial; no symptoms w/ positional testing ; CN 1-12 intact Comments carotid/cardiac ausc/palp WFL; will assess PN future sessions PT-OP-M Strength Start: 09/15/24 16:24 Freq: Status: Active Protocol: Document 09/16/24 07:29 NM (Rec: 09/16/24 11:28 NM [id number]) Cervical Spine Strength Cervical Spine Manual Muscle Testing Flexion (C1-2) 3 Fair Extension 3 Fair Rotation Left 3 Fair Rotation Right 3 Fair Lateral Flexion Left (C3) 3 Fair Lateral Flexion Right (C3) 3 Fair Trunk Strength Trunk Manual Muscle Testing Flexion 3 Fair Extension 3 Fair Rotation Left 3 Fair Rotation Right 3 Fair Lateral Flexion Left 3 Fair Lateral Flexion Right 3 Fair Comments Challenging to stabilize Shoulder Strength Shoulder Manual Muscle Testing Right Flexion 3 Fair Abduction (C5) 3 Fair External Rotation 3 Fair Internal Rotation 3 Fair Comments Not tested with resistance d/t pt surgical hx; IR to neutral at belly Left Flexion 3 Fair Abduction (C5) 3 Fair External Rotation 3 Fair Internal Rotation 3 Fair Comments IR to neutral at belly PT-OP-Q Treatments Start: 09/15/24 16:24 Freq: Status: Active Protocol: Document 09/27/24 09:03 SP (Rec: 09/27/24 09:54 SP [id number]) Therapeutic Exercises Sitting Exercises self SCM massage Sitting Exercise Name SCM: ed self, gave HO assist CS retraction neutral Comments manual then ed self neck ROM Sitting Exercise Name added: chin tuck & CS rotation Side bilateral Reps/Minutes 10 reps Comments improved post manual Standing Exercises hip flexor stretch Standing Exercise Name added to HEP /c HO Side bilateral Equipment Used hand on doorway Reps/Minutes 1 reps 30 sec Comments decreased tightness into standing Gait Training Gait Activity BIG walking Description arm swing Device Used 0 Distance/Duration 50 ft x2 laps Comments cued increased stride and arm swing for confidence stability for airport walking. Spouse will manage items needed to carry. Manual Therapy Treatment Consent Patient gave verbal consent for manual Yes treatment Soft Tissue Mobilization neck Body Location R>L UT, LS, CS paraspinals Mobilization Type Rolling Intensity/Depth Moderate Body Position Hooklying Comments STMs and CS rotation pnfree range. Improved neck mobility. Neuro Re-Education Treatment Balance Activities NBOS & tandem Details added to HEP /c HO for carryover progression home/ vacation Equipment chair front, corner wall behind Comments NBOS HTs and EC 30 sec tandem/semitandem: stationary (unsteady HTs and no EC today) SLS Details Corner balance- provided HO for progression home/vacation safe location Surface light 1 finger on chair, corner wall at back. Comments 1. for time: several seconds without UE support LLE 15 sec, RLE 3 sec tends to lean R, stable surface 2. 1 finger support: 4x30 ea w/ diminishing support cued tall over stance R LE PT-OP-T Assessment and Plan Start: 09/15/24 16:24 Freq: Status: Active Protocol: Document 09/27/24 09:03 SP (Rec: 09/27/24 09:54 SP [id number]) Physical Therapy Assessment Goals Three Impairment not performing HEP Chcf Goal (LTG) Pt will be IND with HEP at least 3x/wk in order to improve symptom management LTG Duration 8 weeks Two Impairment Jaems 38/56 indicates fall risk ; TUG 11 seconds Short Term Goal (STG) Pt will be educated on strategies to reduce fall risk in order to improve safety during mobility STG Duration 4 weeks Sample Processor Goal (LTG) Pt will increase James balance score >42/56 in order to demonstrate decreased fall risk LTG Duration 8 weeks One Impairment cervical rotation ROM Sample Processor Goal (LTG) Pt will increase B cervical spine rotation to at least 60 deg in order to improve visual scanning LTG Duration 8 weeks Assessment Summary Assessment Pt improved head turns seated post manual and instruction AROM for posture and safe walking carryover scanning eventually. Progressed stationary balance in corner for safety support confidence, provided HOs. 5th visit then leave vacation 2 weeks. Physical Therapy Plan Frequency and Duration Frequency of Treatment 2x/Week Duration of treatment (weeks) 8 Plan of Care Start Date 09/16/24 Plan of Care End Date 11/11/24 Therapeutic Interventions Therapeutic Interventions Balance Training,Gait Training ,Home Exercise Program,Joint Mobilizations,Manual Therapy, Neuromuscular Re-education, Orthotic/Prosthetic Management ,Patient/Caregiver Education, Self-Care/Home Management, Sensory Integration,Soft Tissue Mobilization,Taping, Therapeutic Activities, Therapeutic Exercises, Vestibular Rehabilitation Modalities Cold Pack/Ice Massage,Electric Stimulation,Hot Packs, Ultrasound Next Visit Focus/Plan Next Note Type Treatment Note Next Visit Plan R rTSA precautions (no shoulder ext, no IR, no combination), limited L shoulder mobility/strength Avoid treatment of shoulders. Next visit 5th visit then OOT til Oct 15. Can treat CS, TS, balance/gait only Initiate balance training: SLS , tandem, stable, unstable, hurdles, head turns, eyes open /closed, stairs, stepping over /around objects. Provide HO for eliminating fall risk factors CS jelani, ROM. breathing treatment/training. Elongation of L TS side, strengthen R TS . Next add: Strengthening BLE: leg press, step ups, sitting and standing hip strength/knee strength/ankle strength with respect to balance, check dynamic gait started last tx. manual tx to cervical spine, thoracic spine.
--- NOTE | 2024-09-30 10:38 | PT.OTN ---
Current Diagnoses Other chronic pain (09/30/24) Stiffness of right shoulder, not elsewhere classified (09/30/24) Stiffness of left shoulder, not elsewhere classified (09/30/24) Stiffness of other specified joint, not elsewhere classified (09/30/24) Radiculopathy, cervical region (09/30/24) Low back pain, unspecified (09/30/24) Unsteadiness on feet (09/30/24) Unspecified abnormalities of gait and mobility (09/30/24) Other lack of coordination (09/30/24) Other symptoms and signs involving the musculoskeletal system (09/30/24) Weakness (09/30/24) Physical Therapy Treatment Note PT-OP-A Visit Information Start: 09/15/24 16:24 Freq: Status: Active Protocol: Document 09/30/24 09:47 NM (Rec: 09/30/24 10:37 NM [id number]) Out-Patient Physical Therapy Visit Information Visit Information Visit Type Treatment Note Visit Start Time 09:47 Visit Stop Time 10:30 Visit Number 5 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 Denies low back pain at this time. She reports that it aches with sitting (e.g. playing cards) especially if sitting for long periods of time. Pt reports that these areas have been bothering her since her last year when she fell at her hotel in [place] when she fell off a step in the middle of the night; she hit her R head and neck. She did not go to the ED. She reports that her L hand reacts slowly to her brain since then, most affected at her wrist and fingers. No numbness or tingling into L hand. Reports no hand strength, but attributes to arthritis. Pt reports currently in PT at [facility] for her shoulder ROM. She reports that her upper torso is twisted to the L. Hx of R rTSA, fall on L side with hx of fracture to L clavicle; hx breast implants, reports that they twist her . Hx of at least 2 falls in 2023 (missed step, struggling to get clothes on following getting out of sauna). Prior Treatments and Tests Has had cervical MRI, brain MRI following fall, in addition to a NCS Cervical spine MRI 02/2024: Impression - multilevel degenerative disease throughout cervical spine as described above. Worse level is at C5-C6 which demonstrates small L paracentral disc protrusion that mildly effaces the ventral thecan sac and abuts the ventral spine cord. At the C6-7 level, there is a left subarticular disc protrusion that results in moderate stenosis of the L foramen. There is a reversal of cervical lordosis. This finding can be seen in patients with muscle spasms. L shoulder x-ray 05/2024: Impression- Acute communited distal L clavicular fracture with overriding. Age- indeterminate, minimally- displaced L sided rib fractures. Please correlate for point tenderness. Current Functional Impairments (Reported) Functional Limitations- ADL's assists with showering, shampooing hair, dressing Functional Limitations- Recreation/ playing piano Hobbies PT-OP-C Subjective Start: 09/15/24 16:24 Freq: Status: Active Protocol: Document 09/30/24 09:47 NM (Rec: 09/30/24 10:37 NM [id number]) OP-PT Subjective Patient Comments Patient Comments Pt reports has been more depressed. She reports that her B shoulders are still bothering her, in addition to her neck and mid back. Planning to go to [place] on , pt apprehensive. She reports soreness in her neck following last 2 sessions PT-OP-D Balance Start: 09/16/24 15:52 Freq: Status: Active Protocol: Document 09/16/24 07:29 NM (Rec: 09/16/24 16:07 NM [id number]) Balance Tests James Balance Test James Balance Test Score 38/56 PT-OP-E Functional Tests Start: 09/15/24 16:24 Freq: Status: Active Protocol: Document 09/16/24 07:29 NM (Rec: 09/16/24 16:07 NM [id number]) Functional Tests Timed Up and Go (TUG) Score 11 seconds Comments unsteadiness on turns, CGA PT-OP-F Manual Assessment Start: 09/15/24 16:24 Freq: Status: Active Protocol: Document 09/16/24 07:29 NM (Rec: 09/16/24 11:28 NM [id number]) Manual Assessments Soft Tissue Assessment Soft Tissue Mobility Assessment restrictions at shoulder muscles, periscapulars, cervical spine, Joint Mobility Assessment Joint Mobility Assessment L scap 8 cm, winging; R 9 cm; L rib hump posterior PT-OP-G Mobility & Gait Start: 09/15/24 16:24 Freq: Status: Active Protocol: Document 09/16/24 07:29 NM (Rec: 09/16/24 11:28 NM [id number]) OP Gait Assessment Comments Gait Comments Antalgic, limited foot clearance on L side PT-OP-H Neuro Start: 09/15/24 16:24 Freq: Status: Active Protocol: Document 09/21/24 09:11 NM (Rec: 09/21/24 09:51 NM [id number]) Sensation Evaluation Comments Summary Comments decreased Lhand Deep Tendon Reflex & Clonus Assessment Deep Tendon Reflex Left Brachioradialis Deep Tendon Reflex 3+ Normal But Brisk Left Tricep Deep Tendon Reflex 3+ Normal But Brisk Left Bicep Deep Tendon Reflex 3+ Normal But Brisk PT-OP-J Posture/Palpation/Skin Start: 09/15/24 16:24 Freq: Status: Active Protocol: Document 09/16/24 07:29 NM (Rec: 09/16/24 11:28 NM [id number]) Palpation Assessment Location thoracic spine Palpation Details tenderness and restrictions along L paraspinals and periscapulars, pec, levator scapula, trapezius, lat rib hump posteriorly on L slide, more posterior and lateral rotation to L spinal curve, winging of L scapula cervical spine Palpation Details tenderness at cervical spine, paraspinals especially L side tightness at paraspinals PT-OP-K Range of Motion Start: 09/15/24 16:24 Freq: Status: Active Protocol: Document 09/16/24 07:29 NM (Rec: 09/16/24 11:28 NM [id number]) Cervical Spine Range of Motion Cervical Spine Active Degrees Flexion 40 Extension 45 Rotation Left 48 Rotation Right 50 Lateral Flexion Left 20 Lateral Flexion Right 20 Lumbar Spine Range of Motion Lumbar Spine Active Percentage Testing Position Sitting Flexion 100 Extension 25 Rotation Left 50 Rotation Right 20 Lateral Flexion Left 50 Lateral Flexion Right 50 Comments Thoracic spine: L rot 8 cm, R rot 3 cm; 100% flex, 25% ext, 50% lateral flexion R rotation and B lateral flexion Shoulder Goniometric Range of Motion Shoulder ROM Limitations Shoulder ROM Limitations Soft Tissue Tightness Comments Limited bilaterally, not formally measured due to R shoulder precautions and time constraints Wrist Goniometric Range of Motion ROM Limitations Comments observable limitations in L wrist AROM PT-OP-L Special Tests Start: 09/15/24 16:24 Freq: Status: Active Protocol: Document 09/21/24 09:11 NM (Rec: 09/21/24 09:51 NM [id number]) Special Tests Cervical Spine Special Tests vertebral artery screen Test Results 119/77 mmHg L brachial; no symptoms w/ positional testing ; CN 1-12 intact Comments carotid/cardiac ausc/palp WFL; will assess PN future sessions PT-OP-M Strength Start: 09/15/24 16:24 Freq: Status: Active Protocol: Document 09/16/24 07:29 NM (Rec: 09/16/24 11:28 NM [id number]) Cervical Spine Strength Cervical Spine Manual Muscle Testing Flexion (C1-2) 3 Fair Extension 3 Fair Rotation Left 3 Fair Rotation Right 3 Fair Lateral Flexion Left (C3) 3 Fair Lateral Flexion Right (C3) 3 Fair Trunk Strength Trunk Manual Muscle Testing Flexion 3 Fair Extension 3 Fair Rotation Left 3 Fair Rotation Right 3 Fair Lateral Flexion Left 3 Fair Lateral Flexion Right 3 Fair Comments Challenging to stabilize Shoulder Strength Shoulder Manual Muscle Testing Right Flexion 3 Fair Abduction (C5) 3 Fair External Rotation 3 Fair Internal Rotation 3 Fair Comments Not tested with resistance d/t pt surgical hx; IR to neutral at belly Left Flexion 3 Fair Abduction (C5) 3 Fair External Rotation 3 Fair Internal Rotation 3 Fair Comments IR to neutral at belly PT-OP-Q Treatments Start: 09/15/24 16:24 Freq: Status: Active Protocol: Document 09/30/24 09:47 NM (Rec: 09/30/24 10:37 NM [id number]) Therapeutic Exercises Sitting Exercises thoracic rotation Sitting Exercise Name c/ CS rot 1st Side bilateral Reps/Minutes 5 ea Comments monitored for pain; observable inc rot ea rep cervical spine stretches Sitting Exercise Name 1. trap, 2. LS, 3. SCM/scalene Side bilateral Equipment Used mirror visual feedback; UE to tension, no over pressure Reps/Minutes 2x30 ea Comments cues form, pain free Standing Exercises wall posture Standing Exercise Name 1. chin tuck c/ posture, 2. B ER AROM Side bilateral Reps/Minutes 1. 1 min, 2. 20 Comments rotated to R side; cued form, posture, no head tilt Manual Therapy Treatment Consent Patient gave verbal consent for manual Yes treatment Soft Tissue Mobilization thoracic spine Body Location L intercostals, L periscapulars Mobilization Type Rolling Intensity/Depth Superficial Body Position Hooklying Comments No tenderness but increased posterior rib hump neck Body Location R>L UT, LS, CS paraspinals Mobilization Type Rolling Intensity/Depth Superficial Body Position Hooklying PT-OP-T Assessment and Plan Start: 09/15/24 16:24 Freq: Status: Active Protocol: Document 09/30/24 09:47 NM (Rec: 09/30/24 10:37 NM [id number]) Physical Therapy Assessment Goals Three Impairment not performing HEP [facility] Goal (LTG) Pt will be IND with HEP at least 3x/wk in order to improve symptom management LTG Duration 8 weeks Two Impairment James 38/56 indicates fall risk ; TUG 11 seconds Short Term Goal (STG) Pt will be educated on strategies to reduce fall risk in order to improve safety during mobility STG Duration 4 weeks [facility] Goal (LTG) Pt will increase James balance score >42/56 in order to demonstrate decreased fall risk LTG Duration 8 weeks One Impairment cervical rotation ROM [facility] Goal (LTG) Pt will increase B cervical spine rotation to at least 60 deg in order to improve visual scanning LTG Duration 8 weeks Assessment Summary Assessment Pt tolerated session well, no pain with exercise. Initiated cervical spine stretches well but needs increased time for set up, cueing, and to limit compensations. Added to HEP. Initiated seated thoracic rotation to supplement previous ambulation training for trunk rotation; pt encouraged for carryover outside of session. Trialed wall training for postural re- education; demos tendency for R head tilt and lean; verbal and visual cues needed to correct. Maintain R shoulder precautions for all exercises. Physical Therapy Plan Frequency and Duration Frequency of Treatment 2x/Week Duration of treatment (weeks) 8 Plan of Care Start Date 09/16/24 Plan of Care End Date 11/11/24 Therapeutic Interventions Therapeutic Interventions Balance Training,Gait Training ,Home Exercise Program,Joint Mobilizations,Manual Therapy, Neuromuscular Re-education, Orthotic/Prosthetic Management ,Patient/Caregiver Education, Self-Care/Home Management, Sensory Integration,Soft Tissue Mobilization,Taping, Therapeutic Activities, Therapeutic Exercises, Vestibular Rehabilitation Modalities Cold Pack/Ice Massage,Electric Stimulation,Hot Packs, Ultrasound Next Visit Focus/Plan Next Note Type Progress Note Next Visit Plan R rTSA precautions (no shoulder ext, no IR, no combination), limited L shoulder mobility/strength Avoid treatment of shoulders. Can treat CS, TS, balance/gait only Assess kaitlyn to stretches. cont with thoracic mobility as able w/ respect to shoulders. Initiate balance training: SLS , tandem, stable, unstable, hurdles, head turns, eyes open /closed, stairs, stepping over /around objects. Provide HO for eliminating fall risk factors CS jelani, ROM. breathing treatment/training. Elongation of L TS side, strengthen R TS . Next add: Strengthening BLE: leg press, step ups, sitting and standing hip strength/knee strength/ankle strength with respect to balance, check dynamic gait started last tx. manual tx to cervical spine, thoracic spine.
--- NOTE | 2024-10-17 15:53 | PT.OTN ---
Current Diagnoses Other chronic pain (10/17/24) Stiffness of right shoulder, not elsewhere classified (10/17/24) Stiffness of left shoulder, not elsewhere classified (10/17/24) Stiffness of other specified joint, not elsewhere classified (10/17/24) Radiculopathy, cervical region (10/17/24) Low back pain, unspecified (10/17/24) Unsteadiness on feet (10/17/24) Unspecified abnormalities of gait and mobility (10/17/24) Other lack of coordination (10/17/24) Other symptoms and signs involving the musculoskeletal system (10/17/24) Weakness (10/17/24) Physical Therapy Treatment Note PT-OP-A Visit Information Start: 09/15/24 16:24 Freq: Status: Active Protocol: Document 10/17/24 12:57 NM (Rec: 10/17/24 12:59 NM [id number]) Out-Patient Physical Therapy Visit Information Visit Information Visit Type Progress Note Visit Start Time 13:04 Visit Stop Time 13:43 Visit Number 6 Evaluation Information Evaluation Date 09/16/24 Precautions Precautions Hx R rTSA 04/2024, fall risk & hx of falls, scoliosis PT-OP-B Current Condition Start: 09/15/24 16:24 Freq: Status: Active Protocol: Document 09/16/24 07:29 NM (Rec: 09/16/24 11:28 NM [id number]) Current Condition History of Current Condition Onset Date 2023 Current Complaints pain, twisted spine History of Current Condition Pt presents with intermittent pain in her midthoracic spine and cervical spine. Denies low back pain at this time. She reports that it aches with sitting (e.g. playing cards) especially if sitting for long periods of time. Pt reports that these areas have been bothering her since her last year when she fell at her hotel in [place] when she fell off a step in the middle of the night; she hit her R head and neck. She did not go to the ED. She reports that her L hand reacts slowly to her brain since then, most affected at her wrist and fingers. No numbness or tingling into L hand. Reports no hand strength, but attributes to arthritis. [facility]. She reports that her upper torso is twisted to the L. Hx of R rTSA, fall on L side with hx of fracture to L clavicle; hx breast implants, reports that they twist her . Hx of at least 2 falls in 2023 (missed step, struggling to get clothes on following getting out of sauna). Prior Treatments and Tests Has had cervical MRI, brain MRI following fall, in addition to a NCS Cervical spine MRI 02/2024: Impression - multilevel degenerative disease throughout cervical spine as described above. Worse level is at C5-C6 which demonstrates small L paracentral disc protrusion that mildly effaces the ventral thecan sac and abuts the ventral spine cord. At the C6-7 level, there is a left subarticular disc protrusion that results in moderate stenosis of the L foramen. There is a reversal of cervical lordosis. This finding can be seen in patients with muscle spasms. L shoulder x-ray 05/2024: Impression- Acute communited distal L clavicular fracture with overriding. Age- indeterminate, minimally- displaced L sided rib fractures. Please correlate for point tenderness. Current Functional Impairments (Reported) Functional Limitations- ADL's assists with showering, shampooing hair, dressing Functional Limitations- Recreation/ playing piano Hobbies PT-OP-C Subjective Start: 09/15/24 16:24 Freq: Status: Active Protocol: Document 10/17/24 12:57 NM (Rec: 10/17/24 12:59 NM [id number]) OP-PT Subjective Patient Comments Patient Comments Pt just got back from [place]. Pt reports that she really needs to focus on her balance, concerned about single leg balance. Pt reports that she had trouble stepping in the pool while on vacation, landing on her buttocks; she reports that she fell backward but denies pain. She reports that she used a walking stick (ski pole) while on vacation but states that it slowed her down. Will be seeing a neurosurgeon on Thursday. PT-OP-D Balance Start: 09/16/24 15:52 Freq: Status: Active Protocol: Document 09/16/24 07:29 NM (Rec: 09/16/24 16:07 NM [id number]) Balance Tests James Balance Test James Balance Test Score 38/56 PT-OP-E Functional Tests Start: 09/15/24 16:24 Freq: Status: Active Protocol: Document 09/16/24 07:29 NM (Rec: 09/16/24 16:07 NM [id number]) Functional Tests Timed Up and Go (TUG) Score 11 seconds Comments unsteadiness on turns, CGA PT-OP-F Manual Assessment Start: 09/15/24 16:24 Freq: Status: Active Protocol: Document 09/16/24 07:29 NM (Rec: 09/16/24 11:28 NM [id number]) Manual Assessments Soft Tissue Assessment Soft Tissue Mobility Assessment restrictions at shoulder muscles, periscapulars, cervical spine, Joint Mobility Assessment Joint Mobility Assessment L scap 8 cm, winging; R 9 cm; L rib hump posterior PT-OP-G Mobility & Gait Start: 09/15/24 16:24 Freq: Status: Active Protocol: Document 09/16/24 07:29 NM (Rec: 09/16/24 11:28 NM [id number]) OP Gait Assessment Comments Gait Comments Antalgic, limited foot clearance on L side PT-OP-H Neuro Start: 09/15/24 16:24 Freq: Status: Active Protocol: Document 09/21/24 09:11 NM (Rec: 09/21/24 09:51 NM [id number]) Sensation Evaluation Comments Summary Comments decreased Lhand Deep Tendon Reflex & Clonus Assessment Deep Tendon Reflex Left Brachioradialis Deep Tendon Reflex 3+ Normal But Brisk Left Tricep Deep Tendon Reflex 3+ Normal But Brisk Left Bicep Deep Tendon Reflex 3+ Normal But Brisk PT-OP-J Posture/Palpation/Skin Start: 09/15/24 16:24 Freq: Status: Active Protocol: Document 09/16/24 07:29 NM (Rec: 09/16/24 11:28 NM [id number]) Palpation Assessment Location thoracic spine Palpation Details tenderness and restrictions along L paraspinals and periscapulars, pec, levator scapula, trapezius, lat rib hump posteriorly on L slide, more posterior and lateral rotation to L spinal curve, winging of L scapula cervical spine Palpation Details tenderness at cervical spine, paraspinals especially L side tightness at paraspinals PT-OP-K Range of Motion Start: 09/15/24 16:24 Freq: Status: Active Protocol: Document 10/17/24 12:57 NM (Rec: 10/17/24 12:59 NM [id number]) Cervical Spine Range of Motion Cervical Spine Active Degrees Flexion 40 Extension 45 Rotation Left 60 Rotation Right 60 Lateral Flexion Left 20 Lateral Flexion Right 20 Comments IE: 48 deg L rot, 50 deg R rot 10/17/24: 60 deg B cervical rotation PT-OP-L Special Tests Start: 09/15/24 16:24 Freq: Status: Active Protocol: Document 09/21/24 09:11 NM (Rec: 09/21/24 09:51 NM [id number]) Special Tests Cervical Spine Special Tests vertebral artery screen Test Results 119/77 mmHg L brachial; no symptoms w/ positional testing ; CN 1-12 intact Comments carotid/cardiac ausc/palp WFL; will assess PN future sessions PT-OP-M Strength Start: 09/15/24 16:24 Freq: Status: Active Protocol: Document 09/16/24 07:29 NM (Rec: 09/16/24 11:28 NM [id number]) Cervical Spine Strength Cervical Spine Manual Muscle Testing Flexion (C1-2) 3 Fair Extension 3 Fair Rotation Left 3 Fair Rotation Right 3 Fair Lateral Flexion Left (C3) 3 Fair Lateral Flexion Right (C3) 3 Fair Trunk Strength Trunk Manual Muscle Testing Flexion 3 Fair Extension 3 Fair Rotation Left 3 Fair Rotation Right 3 Fair Lateral Flexion Left 3 Fair Lateral Flexion Right 3 Fair Comments Challenging to stabilize Shoulder Strength Shoulder Manual Muscle Testing Right Flexion 3 Fair Abduction (C5) 3 Fair External Rotation 3 Fair Internal Rotation 3 Fair Comments Not tested with resistance d/t pt surgical hx; IR to neutral at belly Left Flexion 3 Fair Abduction (C5) 3 Fair External Rotation 3 Fair Internal Rotation 3 Fair Comments IR to neutral at belly PT-OP-Q Treatments Start: 09/15/24 16:24 Freq: Status: Active Protocol: Document 10/17/24 12:57 NM (Rec: 10/17/24 12:59 NM [id number]) Neuro Re-Education Treatment Balance Activities rocker board Details CGA Surface unstable Comments 1. A/P (a) level (b) rocks (c) c/ perturbation 2. M/L (a) level (b) rocks (c) c/ perturbation hurdles Reps/Duration 2 sets x 10 ft (6 hurdles ea) Comments 1. non-reciprocal, 2 feet in between hurdles 2. reciprocal 3. lateral catches hurdles 1-2 times, close SBA - CGA. Needs cueing to limit circumduction and for neutral hips. James Reps/Duration 39/56 Comments most challenged with tandem, SLS, picking up objects and weight shifting increased time needed for following instructions and for L side SLS Details HEP Reps/Duration 30 ea foot Comments 1. c/ flat hand support, 2. c/ 2-3 fingers ea hand support 3. c/o UE support but hands hovering over bar LLE more challenging PT-OP-T Assessment and Plan Start: 09/15/24 16:24 Freq: Status: Active Protocol: Document 10/17/24 12:57 NM (Rec: 10/17/24 12:59 NM [id number]) Physical Therapy Assessment Goals Three Impairment not performing HEP [employer] Goal (LTG) Pt will be IND with HEP at least 3x/wk in order to improve symptom management LTG Duration 8 weeks Two Impairment James 38/56 indicates fall risk ; TUG 11 seconds Short Term Goal (STG) Pt will be educated on strategies to reduce fall risk in order to improve safety during mobility 10/17/24: handout provided today in session; pt has been educated on safety in previous sessions and will continue to be educated about safety in future sessions STG Duration 4 weeks [employer] Goal (LTG) Pt will increase James balance score >42/56 in order to demonstrate decreased fall risk 10/17/24: 39/56 LTG Duration 8 weeks PROGRESSING 10/17 One Impairment cervical rotation ROM [facility] Goal (LTG) Pt will increase B cervical spine rotation to at least 60 deg in order to improve visual scanning 10/17/24: 60 deg B cervical before trunk rotation assistance LTG Duration 8 weeks MET Progress Towards Goals Progress Towards Goals Progressing Toward Goals,Slow Progress due to Attendance Issues,Slow Progress due to Medical Issues,Goals Met Assessment Summary Assessment Pt tolerated session well. No pain during session. Focus on balance and safety during session. Increased time needed for all activities for processing and for execution, more limited on L side both UE and LE. Able to progress to hurdles from step taps today. Needs cueing for posture as pt very dependent on visual input for balance in addition to tendency for circumduction and not maintaining neutral positioning. Progressed to rockerboard for reactional and anticipatory balance training . Pt needs cueing for execution but also demos only partial ROM for all movements on rockerboard, periodically stabilizes using UE. Educated on home safety, including providing handout to decrease fall risk. Physical Therapy Plan Frequency and Duration Frequency of Treatment 2x/Week Duration of treatment (weeks) 8 Plan of Care Start Date 09/16/24 Plan of Care End Date 11/11/24 Therapeutic Interventions Therapeutic Interventions Balance Training,Gait Training ,Home Exercise Program,Joint Mobilizations,Manual Therapy, Neuromuscular Re-education, Orthotic/Prosthetic Management ,Patient/Caregiver Education, Self-Care/Home Management, Sensory Integration,Soft Tissue Mobilization,Taping, Therapeutic Activities, Therapeutic Exercises, Vestibular Rehabilitation Modalities Cold Pack/Ice Massage,Electric Stimulation,Hot Packs, Ultrasound Next Visit Focus/Plan Next Note Type Treatment Note Next Visit Plan R rTSA precautions (no shoulder ext, no IR, no combination), limited L shoulder mobility/strength Avoid treatment of shoulders. Can treat CS, TS, balance/gait only Initiate balance training: SLS , tandem, stable, unstable, hurdles, head turns, eyes open /closed, stairs, stepping over /around objects. Seated and standing exercises as able. Strengthening BLE: leg press, step ups, sitting and standing hip strength/knee strength/ankle strength with respect to balance, check dynamic gait started last tx. manual tx to cervical spine, thoracic spine.
--- NOTE | 2024-10-21 14:55 | PT.OTN ---
Current Diagnoses Other chronic pain (10/21/24) Stiffness of right shoulder, not elsewhere classified (10/21/24) Stiffness of left shoulder, not elsewhere classified (10/21/24) Stiffness of other specified joint, not elsewhere classified (10/21/24) Radiculopathy, cervical region (10/21/24) Low back pain, unspecified (10/21/24) Unsteadiness on feet (10/21/24) Unspecified abnormalities of gait and mobility (10/21/24) Other lack of coordination (10/21/24) Other symptoms and signs involving the musculoskeletal system (10/21/24) Weakness (10/21/24) Physical Therapy Treatment Note PT-OP-A Visit Information Start: 09/15/24 16:24 Freq: Status: Active Protocol: Document 10/21/24 13:47 NM (Rec: 10/21/24 14:53 NM [id number]) Out-Patient Physical Therapy Visit Information Visit Information Visit Type Treatment Note Visit Start Time 13:47 Visit Stop Time 14:30 Visit Number 7 Evaluation Information Evaluation Date 09/16/24 Precautions Precautions Hx R rTSA 04/2024, fall risk & hx of falls, scoliosis PT-OP-B Current Condition Start: 09/15/24 16:24 Freq: Status: Active Protocol: Document 09/16/24 07:29 NM (Rec: 09/16/24 11:28 NM [id number]) Current Condition History of Current Condition Onset Date 2023 Current Complaints pain, twisted spine History of Current Condition Pt presents with intermittent pain in her midthoracic spine and cervical spine. Denies low back pain at this time. She reports that it aches with sitting (e.g. playing cards) especially if sitting for long periods of time. Pt reports that these areas have been bothering her since her last year when she fell at her hotel in [place] when she fell off a step in the middle of the night; she hit her R head and neck. She did not go to the ED. She reports that her L hand reacts slowly to her brain since then, most affected at her wrist and fingers. No numbness or tingling into L hand. Reports no hand strength, but attributes to arthritis. Pt reports currently in PT at [facility] for her shoulder ROM. She reports that her upper torso is twisted to the L. Hx of R rTSA, fall on L side with hx of fracture to L clavicle; hx breast implants, reports that they twist her . Hx of at least 2 falls in 2023 (missed step, struggling to get clothes on following getting out of sauna). Prior Treatments and Tests Has had cervical MRI, brain MRI following fall, in addition to a NCS Cervical spine MRI 02/2024: Impression - multilevel degenerative disease throughout cervical spine as described above. Worse level is at C5-C6 which demonstrates small L paracentral disc protrusion that mildly effaces the ventral thecan sac and abuts the ventral spine cord. At the C6-7 level, there is a left subarticular disc protrusion that results in moderate stenosis of the L foramen. There is a reversal of cervical lordosis. This finding can be seen in patients with muscle spasms. L shoulder x-ray 05/2024: Impression- Acute communited distal L clavicular fracture with overriding. Age- indeterminate, minimally- displaced L sided rib fractures. Please correlate for point tenderness. Current Functional Impairments (Reported) Functional Limitations- ADL's assists with showering, shampooing hair, dressing Functional Limitations- Recreation/ playing piano Hobbies PT-OP-C Subjective Start: 09/15/24 16:24 Freq: Status: Active Protocol: Document 10/21/24 13:47 NM (Rec: 10/21/24 14:53 NM [id number]) OP-PT Subjective Patient Comments Patient Comments Pt saw Dr. Romo's PA, planning to have several MRIs, EMG, neurologist in [place]. Reports today is not a good day. Planning to return for additional referrals to PT in future after discharge. Still concerned about her R shoulder ROM but planning to ask her other PT at [facility] next week. 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 No pain. PT-OP-D Balance Start: 09/16/24 15:52 Freq: Status: Active Protocol: Document 09/16/24 07:29 NM (Rec: 09/16/24 16:07 NM [id number]) Balance Tests James Balance Test James Balance Test Score 38/56 PT-OP-E Functional Tests Start: 09/15/24 16:24 Freq: Status: Active Protocol: Document 09/16/24 07:29 NM (Rec: 09/16/24 16:07 NM [id number]) Functional Tests Timed Up and Go (TUG) Score 11 seconds Comments unsteadiness on turns, CGA PT-OP-F Manual Assessment Start: 09/15/24 16:24 Freq: Status: Active Protocol: Document 09/16/24 07:29 NM (Rec: 09/16/24 11:28 NM [id number]) Manual Assessments Soft Tissue Assessment Soft Tissue Mobility Assessment restrictions at shoulder muscles, periscapulars, cervical spine, Joint Mobility Assessment Joint Mobility Assessment L scap 8 cm, winging; R 9 cm; L rib hump posterior PT-OP-G Mobility & Gait Start: 09/15/24 16:24 Freq: Status: Active Protocol: Document 09/16/24 07:29 NM (Rec: 09/16/24 11:28 NM [id number]) OP Gait Assessment Comments Gait Comments Antalgic, limited foot clearance on L side PT-OP-H Neuro Start: 09/15/24 16:24 Freq: Status: Active Protocol: Document 09/21/24 09:11 NM (Rec: 09/21/24 09:51 NM [id number]) Sensation Evaluation Comments Summary Comments decreased Lhand Deep Tendon Reflex & Clonus Assessment Deep Tendon Reflex Left Brachioradialis Deep Tendon Reflex 3+ Normal But Brisk Left Tricep Deep Tendon Reflex 3+ Normal But Brisk Left Bicep Deep Tendon Reflex 3+ Normal But Brisk PT-OP-J Posture/Palpation/Skin Start: 09/15/24 16:24 Freq: Status: Active Protocol: Document 09/16/24 07:29 NM (Rec: 09/16/24 11:28 NM [id number]) Palpation Assessment Location thoracic spine Palpation Details tenderness and restrictions along L paraspinals and periscapulars, pec, levator scapula, trapezius, lat rib hump posteriorly on L slide, more posterior and lateral rotation to L spinal curve, winging of L scapula cervical spine Palpation Details tenderness at cervical spine, paraspinals especially L side tightness at paraspinals PT-OP-K Range of Motion Start: 09/15/24 16:24 Freq: Status: Active Protocol: Document 10/17/24 12:57 NM (Rec: 10/17/24 12:59 NM [id number]) Cervical Spine Range of Motion Cervical Spine Active Degrees Flexion 40 Extension 45 Rotation Left 60 Rotation Right 60 Lateral Flexion Left 20 Lateral Flexion Right 20 Comments IE: 48 deg L rot, 50 deg R rot 10/17/24: 60 deg B cervical rotation PT-OP-L Special Tests Start: 09/15/24 16:24 Freq: Status: Active Protocol: Document 09/21/24 09:11 NM (Rec: 09/21/24 09:51 NM [id number]) Special Tests Cervical Spine Special Tests vertebral artery screen Test Results 119/77 mmHg L brachial; no symptoms w/ positional testing ; CN 1-12 intact Comments carotid/cardiac ausc/palp WFL; will assess PN future sessions PT-OP-M Strength Start: 09/15/24 16:24 Freq: Status: Active Protocol: Document 09/16/24 07:29 NM (Rec: 09/16/24 11:28 NM [id number]) Cervical Spine Strength Cervical Spine Manual Muscle Testing Flexion (C1-2) 3 Fair Extension 3 Fair Rotation Left 3 Fair Rotation Right 3 Fair Lateral Flexion Left (C3) 3 Fair Lateral Flexion Right (C3) 3 Fair Trunk Strength Trunk Manual Muscle Testing Flexion 3 Fair Extension 3 Fair Rotation Left 3 Fair Rotation Right 3 Fair Lateral Flexion Left 3 Fair Lateral Flexion Right 3 Fair Comments Challenging to stabilize Shoulder Strength Shoulder Manual Muscle Testing Right Flexion 3 Fair Abduction (C5) 3 Fair External Rotation 3 Fair Internal Rotation 3 Fair Comments Not tested with resistance d/t pt surgical hx; IR to neutral at belly Left Flexion 3 Fair Abduction (C5) 3 Fair External Rotation 3 Fair Internal Rotation 3 Fair Comments IR to neutral at belly PT-OP-Q Treatments Start: 09/15/24 16:24 Freq: Status: Active Protocol: Document 10/21/24 13:47 NM (Rec: 10/21/24 14:53 NM [id number]) Gym Equipment Shuttle Recovery B squat Details needs increased time Resistance 75# (1 navy) Reps/Time 3x10 Therapeutic Exercises Standing Exercises toe raise Standing Exercise Name HEP review Side bilateral Equipment Used 2 finger support at //bar ( cueing for counter too) Reps/Minutes 15 ea - edu for foot clearance to decrease shuffling Comments increased time needed; maintains good form; limited ROM heel raise Standing Exercise Name HEP review Side bilateral Equipment Used 2 finger support at //bar ( cueing for counter top) Reps/Minutes 15 ea Comments increased time needed; maintains good form Neuro Re-Education Treatment Balance Activities picking up objects Details close SBA; no UE assist for balance Reps/Duration 8 min Comments 1. balls on cones, squat cone picker 2. picking up cones, lunge cone picker Performed c/ trunk rotation and visual scanning to various positions where PT placed bucket for balls or cones to place to promote reaching outside ERICA, reaching/trunk rotation across body, and head /trunk movement for visual scanning/dual tasking as pt has conversation about her dog while performing task. Equal R and LUE used stepping Details CGA > close SBA Comments 1. ladders, 4 sets ea x 20 ft (a) fwd (b) lateral (c) retro (d) fwd/lateral stepping Catches ladder with foot only 1-2x, demos improved speed with cueing for arm swing and speed. Cueing for speed, form, trunk rotation 2. no ladders (a) retro (b) fwd (c) carioca Cueing for speed, trunk rotation, coordination of movement Other Activities Ambulation Details c/ arm swing and trunk rotation, postural re- education Reps/Duration 200 ft Comments Cueing for arm position next to body, trunk rotation with normal arm swing. Increased gait speed and foot clearance with increased arms with more awareness for arm swing than when pt ambulating with arms stiffly by side HEP review for BIG ambulation as leaving clinic and for carryover at home PT-OP-T Assessment and Plan Start: 09/15/24 16:24 Freq: Status: Active Protocol: Document 10/21/24 13:47 NM (Rec: 10/21/24 14:53 NM [id number]) Physical Therapy Assessment Goals Three Impairment not performing HEP Chcf Goal (LTG) Pt will be IND with HEP at least 3x/wk in order to improve symptom management LTG Duration 8 weeks Two Impairment James 38/56 indicates fall risk ; TUG 11 seconds Short Term Goal (STG) Pt will be educated on strategies to reduce fall risk in order to improve safety during mobility 10/17/24: handout provided today in session; pt has been educated on safety in previous sessions and will continue to be educated about safety in future sessions STG Duration 4 weeks Straw Boss Goal (LTG) Pt will increase James balance score >42/56 in order to demonstrate decreased fall risk 10/17/24: 39/56 LTG Duration 8 weeks PROGRESSING 10/17 One Impairment cervical rotation ROM Straw Boss Goal (LTG) Pt will increase B cervical spine rotation to at least 60 deg in order to improve visual scanning 10/17/24: 60 deg B cervical before trunk rotation assistance LTG Duration 8 weeks MET Assessment Summary Assessment Pt demos increased gait speed, trunk rotation, and step length following use of agility ladder for carryover when not using ladder. Educated on trunk rotation for ambulation at home. Remainder of session focusing on strengthening BLE to promote functional movement patterns for picking up objects and for trunk mobility/visual scanning. Able to maintain balance while reaching outside ERICA, cross rotation, and while scanning environment without assist from PT. Condensed HEP. Pt would benefit from skilled PT for progressive balance training and strengthening to improve functional mobility and decrease fall risk. Physical Therapy Plan Frequency and Duration Frequency of Treatment 2x/Week Duration of treatment (weeks) 8 Plan of Care Start Date 09/16/24 Plan of Care End Date 11/11/24 Therapeutic Interventions Therapeutic Interventions Balance Training,Gait Training ,Home Exercise Program,Joint Mobilizations,Manual Therapy, Neuromuscular Re-education, Orthotic/Prosthetic Management ,Patient/Caregiver Education, Self-Care/Home Management, Sensory Integration,Soft Tissue Mobilization,Taping, Therapeutic Activities, Therapeutic Exercises, Vestibular Rehabilitation Modalities Cold Pack/Ice Massage,Electric Stimulation,Hot Packs, Ultrasound Other Referrals/Consults Referrals/Consults Recommended Recommend referral to OT for rail operations controller strength and fine motor/ ADL skill assessment Next Visit Focus/Plan Next Note Type Treatment Note Next Visit Plan R rTSA precautions (no shoulder ext, no IR, no combination), limited L shoulder mobility/strength Avoid treatment of shoulders. Can treat CS, TS, balance/gait only Cont balance training: hurdles , stable and unstable surfaces , stairs, head turns and visual scanning, eyes open/ closed, stepping over/around objects. Strengthening BLE: leg press, step ups, standing hip abd, standing hip ext, marching manual tx to cervical spine, thoracic spine as needed only
--- NOTE | 2024-10-24 14:30 | PT.OTN ---
Current Diagnoses Other chronic pain (10/24/24) Stiffness of right shoulder, not elsewhere classified (10/24/24) Stiffness of left shoulder, not elsewhere classified (10/24/24) Stiffness of other specified joint, not elsewhere classified (10/24/24) Radiculopathy, cervical region (10/24/24) Low back pain, unspecified (10/24/24) Unsteadiness on feet (10/24/24) Unspecified abnormalities of gait and mobility (10/24/24) Other lack of coordination (10/24/24) Other symptoms and signs involving the musculoskeletal system (10/24/24) Weakness (10/24/24) Physical Therapy Treatment Note PT-OP-A Visit Information Start: 09/15/24 16:24 Freq: Status: Active Protocol: Document 10/24/24 13:50 SP (Rec: 10/24/24 14:31 SP [id number]) Out-Patient Physical Therapy Visit Information Visit Information Visit Type Treatment Note Visit Start Time 13:50 Visit Stop Time 14:30 Visit Number 8 Number of TROMMEL TENDER Visits 1 Evaluation Information Evaluation Date 09/16/24 Precautions Precautions Hx R rTSA 04/2024, fall risk & hx of falls, scoliosis PT-OP-B Current Condition Start: 09/15/24 16:24 Freq: Status: Active Protocol: Document 09/16/24 07:29 NM (Rec: 09/16/24 11:28 NM [id number]) Current Condition History of Current Condition Onset Date 2023 Current Complaints pain, twisted spine History of Current Condition Pt presents with intermittent pain in her midthoracic spine and cervical spine. Denies low back pain at this time. She reports that it aches with sitting (e.g. playing cards) especially if sitting for long periods of time. Pt reports that these areas have been bothering her since her last year when she fell at her hotel in [place] when she fell off a step in the middle of the night; she hit her R head and neck. She did not go to the ED. She reports that her L hand reacts slowly to her brain since then, most affected at her wrist and fingers. No numbness or tingling into L hand. Reports no hand strength, but attributes to arthritis. Pt reports currently in PT at [facility] for her shoulder ROM. She reports that her upper torso is twisted to the L. Hx of R rTSA, fall on L side with hx of fracture to L clavicle; hx breast implants, reports that they twist her . Hx of at least 2 falls in 2023 (missed step, struggling to get clothes on following getting out of sauna). Prior Treatments and Tests Has had cervical MRI, brain MRI following fall, in addition to a NCS Cervical spine MRI 02/2024: Impression - multilevel degenerative disease throughout cervical spine as described above. Worse level is at C5-C6 which demonstrates small L paracentral disc protrusion that mildly effaces the ventral thecan sac and abuts the ventral spine cord. At the C6-7 level, there is a left subarticular disc protrusion that results in moderate stenosis of the L foramen. There is a reversal of cervical lordosis. This finding can be seen in patients with muscle spasms. L shoulder x-ray 05/2024: Impression- Acute communited distal L clavicular fracture with overriding. Age- indeterminate, minimally- displaced L sided rib fractures. Please correlate for point tenderness. Current Functional Impairments (Reported) Functional Limitations- ADL's assists with showering, shampooing hair, dressing Functional Limitations- Recreation/ playing piano Hobbies PT-OP-C Subjective Start: 09/15/24 16:24 Freq: Status: Active Protocol: Document 10/24/24 13:50 SP (Rec: 10/24/24 14:31 SP [id number]) OP-PT Subjective Patient Comments Patient Comments Pt reports emotional day, not feeling to active, will try go to [employer] and ride bike after PT. PT-OP-D Balance Start: 09/16/24 15:52 Freq: Status: Active Protocol: Document 09/16/24 07:29 NM (Rec: 09/16/24 16:07 NM [id number]) Balance Tests James Balance Test James Balance Test Score 38/56 PT-OP-E Functional Tests Start: 09/15/24 16:24 Freq: Status: Active Protocol: Document 09/16/24 07:29 NM (Rec: 09/16/24 16:07 NM [id number]) Functional Tests Timed Up and Go (TUG) Score 11 seconds Comments unsteadiness on turns, CGA PT-OP-F Manual Assessment Start: 09/15/24 16:24 Freq: Status: Active Protocol: Document 09/16/24 07:29 NM (Rec: 09/16/24 11:28 NM [id number]) Manual Assessments Soft Tissue Assessment Soft Tissue Mobility Assessment restrictions at shoulder muscles, periscapulars, cervical spine, Joint Mobility Assessment Joint Mobility Assessment L scap 8 cm, winging; R 9 cm; L rib hump posterior PT-OP-G Mobility & Gait Start: 09/15/24 16:24 Freq: Status: Active Protocol: Document 09/16/24 07:29 NM (Rec: 09/16/24 11:28 NM [id number]) OP Gait Assessment Comments Gait Comments Antalgic, limited foot clearance on L side PT-OP-H Neuro Start: 09/15/24 16:24 Freq: Status: Active Protocol: Document 09/21/24 09:11 NM (Rec: 09/21/24 09:51 NM [id number]) Sensation Evaluation Comments Summary Comments decreased Lhand Deep Tendon Reflex & Clonus Assessment Deep Tendon Reflex Left Brachioradialis Deep Tendon Reflex 3+ Normal But Brisk Left Tricep Deep Tendon Reflex 3+ Normal But Brisk Left Bicep Deep Tendon Reflex 3+ Normal But Brisk PT-OP-J Posture/Palpation/Skin Start: 09/15/24 16:24 Freq: Status: Active Protocol: Document 09/16/24 07:29 NM (Rec: 09/16/24 11:28 NM [id number]) Palpation Assessment Location thoracic spine Palpation Details tenderness and restrictions along L paraspinals and periscapulars, pec, levator scapula, trapezius, lat rib hump posteriorly on L slide, more posterior and lateral rotation to L spinal curve, winging of L scapula cervical spine Palpation Details tenderness at cervical spine, paraspinals especially L side tightness at paraspinals PT-OP-K Range of Motion Start: 09/15/24 16:24 Freq: Status: Active Protocol: Document 10/17/24 12:57 NM (Rec: 10/17/24 12:59 NM [id number]) Cervical Spine Range of Motion Cervical Spine Active Degrees Flexion 40 Extension 45 Rotation Left 60 Rotation Right 60 Lateral Flexion Left 20 Lateral Flexion Right 20 Comments IE: 48 deg L rot, 50 deg R rot 10/17/24: 60 deg B cervical rotation PT-OP-L Special Tests Start: 09/15/24 16:24 Freq: Status: Active Protocol: Document 09/21/24 09:11 NM (Rec: 09/21/24 09:51 NM [id number]) Special Tests Cervical Spine Special Tests vertebral artery screen Test Results 119/77 mmHg L brachial; no symptoms w/ positional testing ; CN 1-12 intact Comments carotid/cardiac ausc/palp WFL; will assess PN future sessions PT-OP-M Strength Start: 09/15/24 16:24 Freq: Status: Active Protocol: Document 09/16/24 07:29 NM (Rec: 09/16/24 11:28 NM [id number]) Cervical Spine Strength Cervical Spine Manual Muscle Testing Flexion (C1-2) 3 Fair Extension 3 Fair Rotation Left 3 Fair Rotation Right 3 Fair Lateral Flexion Left (C3) 3 Fair Lateral Flexion Right (C3) 3 Fair Trunk Strength Trunk Manual Muscle Testing Flexion 3 Fair Extension 3 Fair Rotation Left 3 Fair Rotation Right 3 Fair Lateral Flexion Left 3 Fair Lateral Flexion Right 3 Fair Comments Challenging to stabilize Shoulder Strength Shoulder Manual Muscle Testing Right Flexion 3 Fair Abduction (C5) 3 Fair External Rotation 3 Fair Internal Rotation 3 Fair Comments Not tested with resistance d/t pt surgical hx; IR to neutral at belly Left Flexion 3 Fair Abduction (C5) 3 Fair External Rotation 3 Fair Internal Rotation 3 Fair Comments IR to neutral at belly PT-OP-Q Treatments Start: 09/15/24 16:24 Freq: Status: Active Protocol: Document 10/24/24 13:50 SP (Rec: 10/24/24 14:31 SP [id number]) Gym Equipment Shuttle Recovery uneven bilateral squat Resistance 50# 2 navy Shuttle Recovery Platform Unstable Reps/Time x15 reps unilateral squat Details good & alignment Resistance 50# 2 teal bands Reps/Time 2x10 B squat Details needs increased time Resistance 75# (3 navy) Reps/Time x30 Therapeutic Exercises Standing Exercises toe raise Standing Exercise Name HEP review Side bilateral Equipment Used 2 finger support at plinth( cueing for counter too) Reps/Minutes 15 ea - edu for foot clearance to decrease shuffling Comments limited ROM heel raise Standing Exercise Name HEP review Side bilateral Equipment Used near plinth not need contact today Reps/Minutes 15 ea Comments maintains good form Neuro Re-Education Treatment Balance Activities grapevine Details trialed in PT Reps/Duration 20 ft x2 laps Comments 3 slight vier off balance CG x1, 2 self recovery. Discussed wt shift into LE stepping into for stability picking up objects Details close SBA; no UE assist for balance Equipment cones/pods on yoga mat Reps/Duration 8 min Comments 1. balls on cones & pods, squat flower picker cross body 2. picking up cones & pods BUE , lunge flower picker Performed c/ trunk rotation, reaching outside ERICA, reaching /trunk rotation across body, and head/trunk movement for visual scanning/dual tasking. Equal R and LUE used hurdles Details hurdles on black yoga mats Equipment 6 hurdles, 2 yoga mats Reps/Duration 10 ft (6 hurdles ea) Comments 1. non-reciprocal, 2 feet in between hurdles warm up- 1 lap 2. reciprocal then added 76 bpm metronome 4 laps total- cued arm swing 3. lateral 70 bpm- 3 laps * R toe catches hurdles 1 time , close SBA - CGA. PT-OP-T Assessment and Plan Start: 09/15/24 16:24 Freq: Status: Active Protocol: Document 10/24/24 13:50 SP (Rec: 10/24/24 14:31 SP [id number]) Physical Therapy Assessment Goals Three Impairment not performing HEP Longterm Goal (LTG) Pt will be IND with HEP at least 3x/wk in order to improve symptom management LTG Duration 8 weeks Two Impairment James 38/56 indicates fall risk ; TUG 11 seconds Short Term Goal (STG) Pt will be educated on strategies to reduce fall risk in order to improve safety during mobility 10/17/24: handout provided today in session; pt has been educated on safety in previous sessions and will continue to be educated about safety in future sessions STG Duration 4 weeks Hemstitcher Goal (LTG) Pt will increase James balance score >42/56 in order to demonstrate decreased fall risk 10/17/24: 39/56 LTG Duration 8 weeks PROGRESSING 10/17 One Impairment cervical rotation ROM Longterm Goal (LTG) Pt will increase B cervical spine rotation to at least 60 deg in order to improve visual scanning 10/17/24: 60 deg B cervical before trunk rotation assistance LTG Duration 8 weeks MET Assessment Summary Assessment Pt was able to eliminate UE support during HRs today, progressed uneven surface squat rotation functional mobility today picking up items good stability. Pt reported I think I can now flower picker dog toys on the floor now seeing how well did in PT . Physical Therapy Plan Frequency and Duration Frequency of Treatment 2x/Week Duration of treatment (weeks) 8 Plan of Care Start Date 09/16/24 Plan of Care End Date 11/11/24 Therapeutic Interventions Therapeutic Interventions Balance Training,Gait Training ,Home Exercise Program,Joint Mobilizations,Manual Therapy, Neuromuscular Re-education, Orthotic/Prosthetic Management ,Patient/Caregiver Education, Self-Care/Home Management, Sensory Integration,Soft Tissue Mobilization,Taping, Therapeutic Activities, Therapeutic Exercises, Vestibular Rehabilitation Modalities Cold Pack/Ice Massage,Electric Stimulation,Hot Packs, Ultrasound Other Referrals/Consults Referrals/Consults Recommended Recommend referral to OT for data report analyst strength and fine motor/ ADL skill assessment Next Visit Focus/Plan Next Note Type Treatment Note Next Visit Plan R rTSA precautions (no shoulder ext, no IR, no combination), limited L shoulder mobility/strength Avoid treatment of shoulders. Can treat CS, TS, balance/gait only Cont balance training: hurdles , stable and unstable surfaces , stairs, head turns and visual scanning, eyes open/ closed, stepping over/around objects. Strengthening BLE: leg press, step ups, standing hip abd, standing hip ext, marching manual tx to cervical spine, thoracic spine as needed only
--- NOTE | 2024-10-26 13:58 | PT-OP ANOTE ---
Pt called at 1:21 to cancel 1345 appt, no reason given other that can't make it.
--- NOTE | 2024-10-31 14:45 | PT.OTN ---
Current Diagnoses Other chronic pain (10/31/24) Stiffness of right shoulder, not elsewhere classified (10/31/24) Stiffness of left shoulder, not elsewhere classified (10/31/24) Stiffness of other specified joint, not elsewhere classified (10/31/24) Radiculopathy, cervical region (10/31/24) Low back pain, unspecified (10/31/24) Unsteadiness on feet (10/31/24) Unspecified abnormalities of gait and mobility (10/31/24) Other lack of coordination (10/31/24) Other symptoms and signs involving the musculoskeletal system (10/31/24) Weakness (10/31/24) Physical Therapy Treatment Note PT-OP-A Visit Information Start: 09/15/24 16:24 Freq: Status: Active Protocol: Document 10/31/24 13:47 NM (Rec: 10/31/24 14:45 NM [id number]) Out-Patient Physical Therapy Visit Information Visit Information Visit Type Treatment Note Visit Start Time 13:52 Visit Stop Time 14:30 Visit Number 9 Evaluation Information Evaluation Date 09/16/24 Precautions Precautions Hx R rTSA 04/2024, fall risk & hx of falls, scoliosis PT-OP-B Current Condition Start: 09/15/24 16:24 Freq: Status: Active Protocol: Document 09/16/24 07:29 NM (Rec: 09/16/24 11:28 NM [id number]) Current Condition History of Current Condition Onset Date 2023 Current Complaints pain, twisted spine History of Current Condition Pt presents with intermittent pain in her midthoracic spine and cervical spine. Denies low back pain at this time. She reports that it aches with sitting (e.g. playing cards) especially if sitting for long periods of time. Pt reports that these areas have been bothering her since her last year when she fell at her hotel in [place] when she fell off a step in the middle of the night; she hit her R head and neck. She did not go to the ED. She reports that her L hand reacts slowly to her brain since then, most affected at her wrist and fingers. No numbness or tingling into L hand. Reports no hand strength, but attributes to arthritis. Pt reports currently in PT at [facility] for her shoulder ROM. She reports that her upper torso is twisted to the L. Hx of R rTSA, fall on L side with hx of fracture to L clavicle; hx breast implants, reports that they twist her . Hx of at least 2 falls in 2023 (missed step, struggling to get clothes on following getting out of sauna). Prior Treatments and Tests Has had cervical MRI, brain MRI following fall, in addition to a NCS Cervical spine MRI 02/2024: Impression - multilevel degenerative disease throughout cervical spine as described above. Worse level is at C5-C6 which demonstrates small L paracentral disc protrusion that mildly effaces the ventral thecan sac and abuts the ventral spine cord. At the C6-7 level, there is a left subarticular disc protrusion that results in moderate stenosis of the L foramen. There is a reversal of cervical lordosis. This finding can be seen in patients with muscle spasms. L shoulder x-ray 05/2024: Impression- Acute communited distal L clavicular fracture with overriding. Age- indeterminate, minimally- displaced L sided rib fractures. Please correlate for point tenderness. Current Functional Impairments (Reported) Functional Limitations- ADL's assists with showering, shampooing hair, dressing Functional Limitations- Recreation/ playing piano Hobbies PT-OP-C Subjective Start: 09/15/24 16:24 Freq: Status: Active Protocol: Document 10/31/24 13:47 NM (Rec: 10/31/24 14:45 NM [id number]) OP-PT Subjective Patient Comments Patient Comments Pt just changed antidepressant , now on lexapro from fluoxetine. She is supposed to be treated for her cervical spine, has new PT referral. No changes since last session. She reports that she rode the bike for 30 min. PT-OP-D Balance Start: 09/16/24 15:52 Freq: Status: Active Protocol: Document 09/16/24 07:29 NM (Rec: 09/16/24 16:07 NM [id number]) Balance Tests James Balance Test James Balance Test Score 38/56 PT-OP-E Functional Tests Start: 09/15/24 16:24 Freq: Status: Active Protocol: Document 09/16/24 07:29 NM (Rec: 09/16/24 16:07 NM [id number]) Functional Tests Timed Up and Go (TUG) Score 11 seconds Comments unsteadiness on turns, CGA PT-OP-F Manual Assessment Start: 09/15/24 16:24 Freq: Status: Active Protocol: Document 09/16/24 07:29 NM (Rec: 09/16/24 11:28 NM [id number]) Manual Assessments Soft Tissue Assessment Soft Tissue Mobility Assessment restrictions at shoulder muscles, periscapulars, cervical spine, Joint Mobility Assessment Joint Mobility Assessment L scap 8 cm, winging; R 9 cm; L rib hump posterior PT-OP-G Mobility & Gait Start: 09/15/24 16:24 Freq: Status: Active Protocol: Document 09/16/24 07:29 NM (Rec: 09/16/24 11:28 NM [id number]) OP Gait Assessment Comments Gait Comments Antalgic, limited foot clearance on L side PT-OP-H Neuro Start: 09/15/24 16:24 Freq: Status: Active Protocol: Document 09/21/24 09:11 NM (Rec: 09/21/24 09:51 NM [id number]) Sensation Evaluation Comments Summary Comments decreased Lhand Deep Tendon Reflex & Clonus Assessment Deep Tendon Reflex Left Brachioradialis Deep Tendon Reflex 3+ Normal But Brisk Left Tricep Deep Tendon Reflex 3+ Normal But Brisk Left Bicep Deep Tendon Reflex 3+ Normal But Brisk PT-OP-J Posture/Palpation/Skin Start: 09/15/24 16:24 Freq: Status: Active Protocol: Document 09/16/24 07:29 NM (Rec: 09/16/24 11:28 NM [id number]) Palpation Assessment Location thoracic spine Palpation Details tenderness and restrictions along L paraspinals and periscapulars, pec, levator scapula, trapezius, lat rib hump posteriorly on L slide, more posterior and lateral rotation to L spinal curve, winging of L scapula cervical spine Palpation Details tenderness at cervical spine, paraspinals especially L side tightness at paraspinals PT-OP-K Range of Motion Start: 09/15/24 16:24 Freq: Status: Active Protocol: Document 10/17/24 12:57 NM (Rec: 10/17/24 12:59 NM [id number]) Cervical Spine Range of Motion Cervical Spine Active Degrees Flexion 40 Extension 45 Rotation Left 60 Rotation Right 60 Lateral Flexion Left 20 Lateral Flexion Right 20 Comments IE: 48 deg L rot, 50 deg R rot 10/17/24: 60 deg B cervical rotation PT-OP-L Special Tests Start: 09/15/24 16:24 Freq: Status: Active Protocol: Document 09/21/24 09:11 NM (Rec: 09/21/24 09:51 NM [id number]) Special Tests Cervical Spine Special Tests vertebral artery screen Test Results 119/77 mmHg L brachial; no symptoms w/ positional testing ; CN 1-12 intact Comments carotid/cardiac ausc/palp WFL; will assess PN future sessions PT-OP-M Strength Start: 09/15/24 16:24 Freq: Status: Active Protocol: Document 09/16/24 07:29 NM (Rec: 09/16/24 11:28 NM [id number]) Cervical Spine Strength Cervical Spine Manual Muscle Testing Flexion (C1-2) 3 Fair Extension 3 Fair Rotation Left 3 Fair Rotation Right 3 Fair Lateral Flexion Left (C3) 3 Fair Lateral Flexion Right (C3) 3 Fair Trunk Strength Trunk Manual Muscle Testing Flexion 3 Fair Extension 3 Fair Rotation Left 3 Fair Rotation Right 3 Fair Lateral Flexion Left 3 Fair Lateral Flexion Right 3 Fair Comments Challenging to stabilize Shoulder Strength Shoulder Manual Muscle Testing Right Flexion 3 Fair Abduction (C5) 3 Fair External Rotation 3 Fair Internal Rotation 3 Fair Comments Not tested with resistance d/t pt surgical hx; IR to neutral at belly Left Flexion 3 Fair Abduction (C5) 3 Fair External Rotation 3 Fair Internal Rotation 3 Fair Comments IR to neutral at belly PT-OP-Q Treatments Start: 09/15/24 16:24 Freq: Status: Active Protocol: Document 10/31/24 13:47 NM (Rec: 10/31/24 14:45 NM [id number]) Gym Equipment Shuttle Recovery uneven bilateral squat Resistance 50# 2 Nippo Shuttle Recovery Platform Unstable Reps/Time 2x12 reps unilateral squat Details good & alignment Resistance 37# (1 [employer]) Shuttle Recovery Platform Unstable Reps/Time 15 ea Neuro Re-Education Treatment Balance Activities taps Details For visual scanning, CS/TS rot , SLS, balance, dual task Surface stable Reps/Duration 5 min Comments Pt standing on square with 6 different colored pods around pt. PT calling out color, combination, and/or how many taps; pt tapping with 1 LE. Close SBa <> CGA to steady foam Surface unstable Comments 1. fwd step ups on 2 foam pad , 10 ea leg, close SBA, no UE support 2. lateral step ups and overs on 2 foam pad, 10 ea leg, close SBA, no UE support 3. marches, no UE support, close SBA 4. heel raises c/ 1 finger support on bar, close SBA grapevine Reps/Duration 3 ft x 15 ft Comments CGA <> SBA. Several instances deviation from line, no UE needed. Cueing for retro stepping, unable to adduct while in hip ext cues for trunk rot picking up objects Details close SBA Comments Picking up pads and pods from ground c/ trunk rotation, cervical spine rotation, BUE use with same side and cross body reach outside of ERICA stepping Details in camacho Comments 1. normal ambulation c/ head turns and arm swing decreased speed c/ addition of swing, needs cueing for trunk rotation, 50 ft; SBA 2. normal ambulation c/ head nods and arm swing, 50 ft; SBA 3. eyes closed, x25 ft CGA 4. retro stepping, x 25 ft CGA. improved foot clearance but decreased speed, unable to coordinate with trunk rotation PT-OP-T Assessment and Plan Start: 09/15/24 16:24 Freq: Status: Active Protocol: Document 10/31/24 13:47 NM (Rec: 10/31/24 14:45 NM [id number]) Physical Therapy Assessment Goals Three Impairment not performing HEP Fdc Goal (LTG) Pt will be IND with HEP at least 3x/wk in order to improve symptom management LTG Duration 8 weeks Two Impairment James 38/56 indicates fall risk ; TUG 11 seconds Short Term Goal (STG) Pt will be educated on strategies to reduce fall risk in order to improve safety during mobility 10/17/24: handout provided today in session; pt has been educated on safety in previous sessions and will continue to be educated about safety in future sessions STG Duration 4 weeks Fdc Goal (LTG) Pt will increase James balance score >42/56 in order to demonstrate decreased fall risk 10/17/24: 39/56 LTG Duration 8 weeks PROGRESSING 10/17 One Impairment cervical rotation ROM Hardwood Faller Goal (LTG) Pt will increase B cervical spine rotation to at least 60 deg in order to improve visual scanning 10/17/24: 60 deg B cervical before trunk rotation assistance LTG Duration 8 weeks MET Assessment Summary Assessment Emphasis on visual scanning, trunk and cervical spine rotation during activities. Needs cueing for carryover of trunk rotation during ambulation. Dual tasking challenging for pt, needs no UE support but at CGA/SBA to steady depending on tasks. Pt demos more consistent LLE and LUE use 25% of the time compared to in previous sessions. Unstable surface continue to be challenging for pt to maintain balance. Physical Therapy Plan Frequency and Duration Frequency of Treatment 2x/Week Duration of treatment (weeks) 8 Plan of Care Start Date 09/16/24 Plan of Care End Date 11/11/24 Therapeutic Interventions Therapeutic Interventions Balance Training,Gait Training ,Home Exercise Program,Joint Mobilizations,Manual Therapy, Neuromuscular Re-education, Orthotic/Prosthetic Management ,Patient/Caregiver Education, Self-Care/Home Management, Sensory Integration,Soft Tissue Mobilization,Taping, Therapeutic Activities, Therapeutic Exercises, Vestibular Rehabilitation Modalities Cold Pack/Ice Massage,Electric Stimulation,Hot Packs, Ultrasound Other Referrals/Consults Referrals/Consults Recommended Recommend 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 Can treat CS, TS, balance/gait only James. Dual tasking and taps. Cont balance training: hurdles , stable and unstable surfaces , stairs, head turns and visual scanning, eyes open/ closed, stepping over/around objects. Strengthening BLE: leg press, step ups, standing hip abd, standing hip ext, marching manual tx to cervical spine, thoracic spine as needed only
--- NOTE | 2024-11-02 15:57 | PT.OTN ---
Current Diagnoses Other chronic pain (11/02/24) Stiffness of right shoulder, not elsewhere classified (11/02/24) Stiffness of left shoulder, not elsewhere classified (11/02/24) Stiffness of other specified joint, not elsewhere classified (11/02/24) Radiculopathy, cervical region (11/02/24) Low back pain, unspecified (11/02/24) Unsteadiness on feet (11/02/24) Unspecified abnormalities of gait and mobility (11/02/24) Other lack of coordination (11/02/24) Other symptoms and signs involving the musculoskeletal system (11/02/24) Weakness (11/02/24) Physical Therapy Treatment Note PT-OP-A Visit Information Start: 09/15/24 16:24 Freq: Status: Active Protocol: Document 11/02/24 13:43 NM (Rec: 11/02/24 15:56 NM [id number]) Out-Patient Physical Therapy Visit Information Visit Information Visit Type Progress Note Visit Start Time 13:45 Visit Stop Time 14:28 Visit Number 10 Evaluation Information Evaluation Date 09/16/24 Precautions Precautions Hx R rTSA 04/2024, fall risk & hx of falls, scoliosis PT-OP-B Current Condition Start: 09/15/24 16:24 Freq: Status: Active Protocol: Document 09/16/24 07:29 NM (Rec: 09/16/24 11:28 NM [id number]) Current Condition History of Current Condition Onset Date 2023 Current Complaints pain, twisted spine History of Current Condition Pt presents with intermittent pain in her midthoracic spine and cervical spine. Denies low back pain at this time. She reports that it aches with sitting (e.g. playing cards) especially if sitting for long periods of time. Pt reports that these areas have been bothering her since her last year when she fell at her hotel in [place] when she fell off a step in the middle of the night; she hit her R head and neck. She did not go to the ED. She reports that her L hand reacts slowly to her brain since then, most affected at her wrist and fingers. No numbness or tingling into L hand. Reports no hand strength, but attributes to arthritis. Pt reports currently in PT at [facility] for her shoulder ROM. She reports that her upper torso is twisted to the L. Hx of R rTSA, fall on L side with hx of fracture to L clavicle; hx breast implants, reports that they twist her . Hx of at least 2 falls in 2023 (missed step, struggling to get clothes on following getting out of sauna). Prior Treatments and Tests Has had cervical MRI, brain MRI following fall, in addition to a NCS Cervical spine MRI 02/2024: Impression - multilevel degenerative disease throughout cervical spine as described above. Worse level is at C5-C6 which demonstrates small L paracentral disc protrusion that mildly effaces the ventral thecan sac and abuts the ventral spine cord. At the C6-7 level, there is a left subarticular disc protrusion that results in moderate stenosis of the L foramen. There is a reversal of cervical lordosis. This finding can be seen in patients with muscle spasms. L shoulder x-ray 05/2024: Impression- Acute communited distal L clavicular fracture with overriding. Age- indeterminate, minimally- displaced L sided rib fractures. Please correlate for point tenderness. Current Functional Impairments (Reported) Functional Limitations- ADL's assists with showering, shampooing hair, dressing Functional Limitations- Recreation/ playing piano Hobbies PT-OP-C Subjective Start: 09/15/24 16:24 Freq: Status: Active Protocol: Document 11/02/24 13:43 NM (Rec: 11/02/24 15:56 NM [id number]) OP-PT Subjective Patient Comments Patient Comments Pt reports that she did not walk since last session. Has a new referral for both hands weakness. Has EMG consultation next week in [place]. PT-OP-D Balance Start: 09/16/24 15:52 Freq: Status: Active Protocol: Document 09/16/24 07:29 NM (Rec: 09/16/24 16:07 NM [id number]) Balance Tests James Balance Test James Balance Test Score 38/56 PT-OP-E Functional Tests Start: 09/15/24 16:24 Freq: Status: Active Protocol: Document 09/16/24 07:29 NM (Rec: 09/16/24 16:07 NM [id number]) Functional Tests Timed Up and Go (TUG) Score 11 seconds Comments unsteadiness on turns, CGA PT-OP-F Manual Assessment Start: 09/15/24 16:24 Freq: Status: Active Protocol: Document 09/16/24 07:29 NM (Rec: 09/16/24 11:28 NM [id number]) Manual Assessments Soft Tissue Assessment Soft Tissue Mobility Assessment restrictions at shoulder muscles, periscapulars, cervical spine, Joint Mobility Assessment Joint Mobility Assessment L scap 8 cm, winging; R 9 cm; L rib hump posterior PT-OP-G Mobility & Gait Start: 09/15/24 16:24 Freq: Status: Active Protocol: Document 09/16/24 07:29 NM (Rec: 09/16/24 11:28 NM [id number]) OP Gait Assessment Comments Gait Comments Antalgic, limited foot clearance on L side PT-OP-H Neuro Start: 09/15/24 16:24 Freq: Status: Active Protocol: Document 09/21/24 09:11 NM (Rec: 09/21/24 09:51 NM [id number]) Sensation Evaluation Comments Summary Comments decreased Lhand Deep Tendon Reflex & Clonus Assessment Deep Tendon Reflex Left Brachioradialis Deep Tendon Reflex 3+ Normal But Brisk Left Tricep Deep Tendon Reflex 3+ Normal But Brisk Left Bicep Deep Tendon Reflex 3+ Normal But Brisk PT-OP-J Posture/Palpation/Skin Start: 09/15/24 16:24 Freq: Status: Active Protocol: Document 09/16/24 07:29 NM (Rec: 09/16/24 11:28 NM [id number]) Palpation Assessment Location thoracic spine Palpation Details tenderness and restrictions along L paraspinals and periscapulars, pec, levator scapula, trapezius, lat rib hump posteriorly on L slide, more posterior and lateral rotation to L spinal curve, winging of L scapula cervical spine Palpation Details tenderness at cervical spine, paraspinals especially L side tightness at paraspinals PT-OP-K Range of Motion Start: 09/15/24 16:24 Freq: Status: Active Protocol: Document 10/17/24 12:57 NM (Rec: 10/17/24 12:59 NM [id number]) Cervical Spine Range of Motion Cervical Spine Active Degrees Flexion 40 Extension 45 Rotation Left 60 Rotation Right 60 Lateral Flexion Left 20 Lateral Flexion Right 20 Comments IE: 48 deg L rot, 50 deg R rot 10/17/24: 60 deg B cervical rotation PT-OP-L Special Tests Start: 09/15/24 16:24 Freq: Status: Active Protocol: Document 09/21/24 09:11 NM (Rec: 09/21/24 09:51 NM [id number]) Special Tests Cervical Spine Special Tests vertebral artery screen Test Results 119/77 mmHg L brachial; no symptoms w/ positional testing ; CN 1-12 intact Comments carotid/cardiac ausc/palp WFL; will assess PN future sessions PT-OP-M Strength Start: 09/15/24 16:24 Freq: Status: Active Protocol: Document 09/16/24 07:29 NM (Rec: 09/16/24 11:28 NM [id number]) Cervical Spine Strength Cervical Spine Manual Muscle Testing Flexion (C1-2) 3 Fair Extension 3 Fair Rotation Left 3 Fair Rotation Right 3 Fair Lateral Flexion Left (C3) 3 Fair Lateral Flexion Right (C3) 3 Fair Trunk Strength Trunk Manual Muscle Testing Flexion 3 Fair Extension 3 Fair Rotation Left 3 Fair Rotation Right 3 Fair Lateral Flexion Left 3 Fair Lateral Flexion Right 3 Fair Comments Challenging to stabilize Shoulder Strength Shoulder Manual Muscle Testing Right Flexion 3 Fair Abduction (C5) 3 Fair External Rotation 3 Fair Internal Rotation 3 Fair Comments Not tested with resistance d/t pt surgical hx; IR to neutral at belly Left Flexion 3 Fair Abduction (C5) 3 Fair External Rotation 3 Fair Internal Rotation 3 Fair Comments IR to neutral at belly PT-OP-Q Treatments Start: 09/15/24 16:24 Freq: Status: Active Protocol: Document 11/02/24 13:43 NM (Rec: 11/02/24 15:56 NM [id number]) Therapeutic Activity Therapeutic Activity ambulation Reps/Minutes 4 min Comments In clinic c/ trunk rotation and head turns for visual scanning, improved environmental interaction, and trunk rotation stairs Name close SBA for safety Comments 1. 6 stairs, 8 steps without rail assist, increased time 2. 4 stairs, 2 sets without rail assist, carrying object in 1 hand 3. 6 stairs c/ visual scanning while holding object, no Ue assist Neuro Re-Education Treatment Balance Activities dual tasking Details stepping fwd/lateral/retro in place Surface stable Comments Performing visual scanning, SLS, and stepping outside ERICA to pod in combination with PT instructions Performing from 1 combination to 6 combinations. No LOB or unsteadiness but activity challenging and takes increased time step ups Details close SBA Reps/Duration 10 ea leg, ea set Comments 1. fwd 6 2. lateral 6 Increased time needed for completion. 1 instance catch toe with step up but does not LOB stepping Details close SBA Comments 1. fwd/retro/lateral stepping @ cones, AROM, 10 cones x 25 ft 2. 2nd set carrying an ice cream cone (cone c/ ball on top) for fwd/retro/lateral stepping Cueing for larger step, foot clearance. Increased time needed for activity comprehension and completion James Reps/Duration 49/56 Comments challenged by SLS, tandem, reaching fwd SLS Reps/Duration 5x3 hold Comments c/ carrying ice cream cone PT-OP-T Assessment and Plan Start: 09/15/24 16:24 Freq: Status: Active Protocol: Document 11/02/24 13:43 NM (Rec: 11/02/24 15:56 NM [id number]) Physical Therapy Assessment Goals Three Impairment not performing HEP Content Production Specialist Goal (LTG) Pt will be IND with HEP at least 3x/wk in order to improve symptom management 11/02/24: pt reports that she does not perform her exercises often due to depression; however, she does reports performing HEP intermittently for symptom management LTG Duration 8 weeks Two Impairment James 38/56 indicates fall risk ; TUG 11 seconds Short Term Goal (STG) Pt will be educated on strategies to reduce fall risk in order to improve safety during mobility 10/17/24: handout provided today in session; pt has been educated on safety in previous sessions and will continue to be educated about safety in future sessions STG Duration 4 weeks Content Production Specialist Goal (LTG) Pt will increase James balance score >42/56 in order to demonstrate decreased fall risk 10/17/24: 39/56 11/02/24: 49/56 LTG Duration 8 weeks MET 11/02 One Impairment cervical rotation ROM Half-Way Goal (LTG) Pt will increase B cervical spine rotation to at least 60 deg in order to improve visual scanning 10/17/24: 60 deg B cervical before trunk rotation assistance LTG Duration 8 weeks MET Assessment Summary Assessment Pt demos improvements in maintaining stability during stepping up and outside ERICA toward objects. Minimal cueing needed for correct execution, only increased time for all activities. One instance of catching foot with step up but no LOB. Able to progress to carrying object up/down stairs . Time spent on addressing trunk rotation and visual scanning for improved safety in environment. Pt needs cueing for safety intermittently due to poor depth perception. Physical Therapy Plan Frequency and Duration Frequency of Treatment 2x/Week Duration of treatment (weeks) 8 Plan of Care Start Date 09/16/24 Plan of Care End Date 11/11/24 Therapeutic Interventions Therapeutic Interventions Balance Training,Gait Training ,Home Exercise Program,Joint Mobilizations,Manual Therapy, Neuromuscular Re-education, Orthotic/Prosthetic Management ,Patient/Caregiver Education, Self-Care/Home Management, Sensory Integration,Soft Tissue Mobilization,Taping, Therapeutic Activities, Therapeutic Exercises, Vestibular Rehabilitation Modalities Cold Pack/Ice Massage,Electric Stimulation,Hot Packs, Ultrasound Other Referrals/Consults Referrals/Consults Recommended 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 Pt demos improvement in James balance score to 49/56, indicating decreased risk of falls. Pt planning to return to PT for new referral to address hand weakness. At pt request to return to address hands and due to progression toward current goals, PT and pt planning to discharge today with plan to return with new referral. PT recommends that pt return to PT in future for further balance training if needed. Pt and PT in agreement . Next Visit Focus/Plan Next Note Type Discharge Summary Next Visit Plan discharge from PT
== END 2024-11-03 11:26 | disposition home or self-care (01) ==
LOC: PHYS 13:45
PROVIDERS: Family Provider Internal Medicine; PCP Internal Medicine; Referring Provider Internal Medicine; Visit Provider Internal Medicine
DX: R26.9 Unspecified abnormalities of gait and mobility (principal); M54.50 Low back pain, unspecified; G89.29 Other chronic pain; M54.12 Radiculopathy, cervical region; R29.898 Other symptoms and signs involving the musculoskeletal system; R53.1 Weakness; M25.69 Stiffness of other specified joint, not elsewhere classified; M25.612 Stiffness of left shoulder, not elsewhere classified; M25.611 Stiffness of right shoulder, not elsewhere classified; R26.81 Unsteadiness on feet; R27.8 Other lack of coordination
CPT/HCPCS: 97110; 97112; 97140; 97162; 97530

== ENCOUNTER → 2024-11-05 14:36 | Outpatient (CLI) | payer MEDICARE, OTHER, SELFPAY ==
--- NOTE | 2024-11-05 14:44 | DI.MRI.S_ITS ---
PROCEDURE: MR LUMBAR SPINE WO CON INDICATIONS: Bilateral Leg Weakness TECHNIQUE: Noncontrast sagittal T1 spin echo and T2 fast echo, sagittal STIR, and T2 fast spin echo through the lumbar spine. In cases with scoliosis, additional coronal T2 fast spin echo may be performed. COMPARISON: [facility], MR, MR THORACIC SPINE WO CON, 11/05/2024, 14:59. FINDINGS: Image quality: Excellent. Alignment and Curvature: S-shaped curvature is present with greatest rightward affected L3. Bone Marrow: Marrow is of normal overall signal. Mild reactive endplate changes at L2-3, L3-4 with Schmorl's nodes. No acute vertebral body compression fractures. Spinal Cord: Conus medullaris terminates at the L1-2 level. Visualized cord demonstrates normal signal and size. Paraspinous Soft Tissues: No paravertebral masses. Discs: Multilevel moderate to severe disc desiccation most prominent from L2-3 through L4-5. T12-L1: Minimal disc bulge without spinal stenosis or foraminal narrowing. Mild facet and ligamentum flavum hypertrophy. L1-L2: Mild disc bulge with minimal spinal stenosis. Moderate bilateral foraminal narrowing with facet and ligamentum flavum hypertrophy. L2-L3: Mild disc bulge with mild spinal stenosis. Moderate to severe left and moderate right foraminal narrowing with facet and ligamentum flavum hypertrophy. L3-L4: Mild disc bulge with [id number] spinal stenosis. Severe left and moderate right foraminal narrowing with slight effacement of the exiting left L3 nerve root. Facet and ligamentum flavum hypertrophy are present. L4-L5: Mild disc bulge with moderate to severe spinal stenosis. Severe left and moderate to severe right foraminal narrowing with mild compression of the exiting left L4 nerve root. Facet and ligamentum flavum hypertrophy are present. L5-S1: Disc bulge with extension into the foramina bilaterally. Severe right and mild left foraminal narrowing with mild compression of the exiting right L5 nerve roots. Facet and ligamentum flavum hypertrophy are present. IMPRESSION: Scoliotic curvature. Multilevel disc bulges. Multilevel spinal stenosis most severe at L4-5 secondary to disc bulge with contributing effect of scoliotic curvature and facet/ligamentum flavum arthropathy. Multilevel moderate to severe foraminal narrowing most prominent from L3-4 through L5-S1 with areas of nerve root compression secondary to facet/ligamentum flavum arthropathy as well as scoliotic curvature. Dictated by: Angeles Fonseca M.D. on 11/07/2024 at 9:51 Approved by: Angeles Fonseca M.D. on 11/07/2024 at 10:04
--- NOTE | 2024-11-05 14:44 | DI.MRI.S_ITS ---
PROCEDURE: MR THORACIC SPINE WO CON INDICATIONS: Bilateral Leg Weakness TECHNIQUE: Noncontrast sagittal T1 spine echo and T2 fast spin echo, sagittal STIR, and T2 fast spin echo through the thoracic spine. COMPARISON: [facility], CR, XR SCOLIOSIS STUDY, 10/19/2024, 11:55. [facility], MR, MR LUMBAR SPINE WO CON, 11/05/2024, 14:59. FINDINGS: Image quality: Excellent. Alignment and Curvature: There is S shaped scoliotic curvature. Bone Marrow: Marrow is of normal overall signal. No acute vertebral body compression fractures. Spinal Cord: Visualized spinal cord is normal in size and signal. Paraspinous Soft Tissues: No paravertebral masses. Miscellaneous: There is trace right foraminal narrowing T3-4, trace left T6-7 trace left T7-8, [id number] bilateral T9-10, moderate left T10-11, mild right T12-L1. Scattered minimal disc bulges. No spinal stenosis. IMPRESSION: Scoliotic curvature. Multilevel foraminal narrowing as above secondary to scoliotic curvature. No spinal stenosis. Dictated by: Angeles Fonseca M.D. on 11/07/2024 at 10:04 Approved by: Angeles Fonseca M.D. on 11/07/2024 at 10:14
== END ==
PROVIDERS: Family Provider Internal Medicine; PCP Internal Medicine; Referring Provider Physician Assistant Surgical; Visit Provider Physician Assistant Surgical
DX: R29.898 Other symptoms and signs involving the musculoskeletal system (principal); R26.81 Unsteadiness on feet; M41.9 Scoliosis, unspecified; M48.04 Spinal stenosis, thoracic region; M51.369 Other intervertebral disc degeneration, lumbar region without mention of lumbar back pain or lower extremity pain; M51.379 Other intervertebral disc degeneration, lumbosacral region without mention of lumbar back pain or lower extremity pain; M48.061 Spinal stenosis, lumbar region without neurogenic claudication; M48.07 Spinal stenosis, lumbosacral region; M47.816 Spondylosis without myelopathy or radiculopathy, lumbar region; M47.817 Spondylosis without myelopathy or radiculopathy, lumbosacral region
CPT/HCPCS: 72146; 72148

== ENCOUNTER → 2024-11-10 12:21 | Outpatient (CLI) | payer MEDICARE, OTHER, SELFPAY ==
--- NOTE | 2024-11-10 | DI.MRI.S_ITS ---
PROCEDURE: MR CERVICAL SPINE WO CON INDICATIONS: left hand weakness, cervical radiculopathy TECHNIQUE: Noncontrast sagittal T1 spin echo and T2 fast spin echo, sagittal STIR, foraminal oblique sagittal T2 fast spin echo, and axial gradient echo or T2 fast spin echo through the cervical spine. COMPARISON: [facility], MR, MR CERVICAL SPINE WO CON, 03/16/2024, 12:01. FINDINGS: Image quality: Excellent Mild anterolisthesis C3 on C4. Mild retrolisthesis of C5 on C6. Mild anterolisthesis of C7 on T1, T1 on T2, T2 on T3 and T3 on T4. Vertebral body height of cervical spine is well maintained. There is mild anterior degenerative wedging of T3, and T4. Multilevel mild fibrovascular end plate change. Multilevel disc bulge and disc desiccation. Cord signal: Unremarkable Right neural foraminal stenosis: Mild at C5-6. Left neural foraminal stenosis: mild at C3-4, C4-5, C5-6. Axial images: C2-3: Mild bilateral facet arthropathy. No central canal stenosis. C3-4: Mild bilateral facet arthropathy. Mild posterior disc osteophyte complex. Mild central canal stenosis. C4-5: Mild bilateral facet arthropathy. Mild posterior disc osteophyte complex. No central canal stenosis. C5-6: Mild bilateral facet arthropathy. Posterior disc osteophyte complex. Moderate central canal stenosis. C6-7: Posterior disc osteophyte complex. Mild central canal stenosis. C7-T1: No central canal stenosis. Other soft tissue findings: None. IMPRESSION: 1. Multilevel degenerative changes of the cervical spine, most pronounced at C5-6, where there is moderate central canal stenosis, grossly unchanged from prior exam. 2. Mild bilateral neural from stenosis as described above, grossly unchanged. Dictated by: Serena Monge M.D. on 11/10/2024 at 15:17 Approved by: Serena Monge M.D. on 11/10/2024 at 15:26
== END ==
PROVIDERS: Family Provider Internal Medicine; PCP Internal Medicine; Referring Provider Physician Assistant Surgical; Visit Provider Physician Assistant Surgical
DX: M43.12 Spondylolisthesis, cervical region (principal); M47.22 Other spondylosis with radiculopathy, cervical region; M48.02 Spinal stenosis, cervical region; R29.898 Other symptoms and signs involving the musculoskeletal system
CPT/HCPCS: 72141

== ENCOUNTER 2024-11-15 09:44 | Outpatient (RCR) | payer MEDICARE, OTHER, SELFPAY ==
--- NOTE | 2024-11-15 20:02 | PT.OIE ---
Current Diagnoses Spondylosis without myelopathy or radiculopathy, cervical region (11/15/24) Radiculopathy, cervical region (11/15/24) Other lack of coordination (11/15/24) Other symptoms and signs involving the musculoskeletal system (11/15/24) Past Medical History (Last Reviewed 11/09/24 @ 08:52 by Nba Kessler MD) Acquired hypothyroidism Age-related osteoporosis without current pathological fracture Chronic insomnia Chronic low back pain Colitis Depression, major, recurrent Essential hypertension Gait abnormality Generalized anxiety disorder Hearing loss (~2015) Hip osteoarthritis History of colonic polyps History of urinary incontinence (~2020) Irritable bowel syndrome Left arm weakness Left cervical radiculopathy Lumbar disc disease Lymphocytic colitis Mixed hyperlipidemia Right rotator cuff tear Scoliosis Urinary incontinence Past Surgical History (Last Reviewed 11/09/24 @ 08:52 by Nba Kessler MD) History of bilateral breast implants History of facelift History of hip replacement History of toe surgery S/P rotator cuff repair (~08/2023) Visit Care Team Role Provider Type Nba Kessler MD Family Provider Physician Primary Care Provider Specialty: Internal Medicine Address: [address] [place] [address], [id number] Email: [email or web address] Cinthia Chris PA-C Attending Provider Non-Staff Referring Provider Specialty: Orthopedic Surgery Address: [address] [place] [address], [id number] Email: [email or web address] Initial Evaluation PT-OP-A Visit Information Start: 11/10/24 19:18 Freq: Status: Active Protocol: Document 11/15/24 10:01 LRN (Rec: 11/15/24 11:57 LRN [id number]) Out-Patient Physical Therapy Visit Information Visit Information Visit Type Initial Evaluation Visit Start Time 10:01 Visit Stop Time 11:03 Visit Number 1 Evaluation Information Evaluation Date 11/15/24 Precautions Precautions Depression & anxiety, Osteoporosis, hearing problem, falls with possible concussion, back pain, arthritis, surgical hx of hip replacement, reverse shoulder replacement PT-OP-B Current Condition Start: 11/10/24 19:18 Freq: Status: Active Protocol: Document 11/15/24 10:01 LRN (Rec: 11/15/24 11:57 LRN [id number]) Current Condition History of Current Condition Onset Date 06/09/24 Current Complaints Can't move her fingers quickly , only slowly and not able to grasp well. History of Current Condition Pt reports the main problem today is for the L hand not responding. She states EMG performed and was told she has elements of Parkinsons and has been having therapy for gait. 4 wks after R rotator cuff surgery on 06/09/24 she was getting out of her home sauna and fell, helped her to ER, and was found to have fx'd L Clavicle. Pt reports being R handed. States she now can't fold clothes, button shirts or pants, reach for cups in a cupboard, hold onto a wash cloth to wash under her arms, spouse has to help with bathing/washing hair, dressing , cooking and all the tasks around the house (she picks up dog toys). 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 She reports problems with cervical spine, Has had a bunch of falls. She c/o hump on back that she feels is not scoliosis, but clavicle related. Prior Treatments and Tests X-ray 11/10/24: Multilevel degenerative changes most pronounced at C5-C6, mod central canal stenosis. mild anterolisthesis C3 on C4, mild retrolisthesis C5-T4. X-ray 11/05/24: Thoacic spine: S-shaped scoliosis, multilevel foraminal narrowing . X-ray 11/05/24: Lumbar spine: Multilevel spinal stenosis, most severe at L4-L5 2ndary to disc bulge, moderate to severe foraminal narowing most at L3-4 through L5-S1 with areas of nerve root compression. 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 Pt reports long history, starting with R arm problem when she had bruising down the arm and was diagnosed with a bad R rotator cuff, and had surgery that did not work. She then had a R shoulder replacement (05/12/2024) and has only range of 90 deg's flexion and can barely reach behind her head. She states four wks after TSA surgery she was getting out of her home sauna and fell, helped take her to ER, and was found to have a fx'd L Clavicle. States she used to be athletic, but now goes to [employer] gym only ~ 3x/week, but last week had a lot of PT appts and didn't feel well and was depressed, so she did not go exercise. Treatment Goals Patient/Caregiver Goals Pt goal: -strengthen the hands to be able to hold a cup, washcloth, -strengthen arm to be able to shampoo the hair and scrub scalp. -move L hand faster with more agility for scrubbing scalp when washing hair ( horizontally fwd/bkwd with pressure onto head) and scratching skin. Personal Factors Other Personal Factors That May Effect -Suffering from depression Therapy/Recovery since 05/2024, and has been on Prozac/anti-depressants since her 30's, receiving mental health visits since 2018. She reports currently being on a new anti-depressant medication . -recent L clavicle fracture on 06/09/24 and prior R TSA after failed R RCR. -Osteoporosis, -hearing problem, -falls with possible concussion -back pain & arthritis PT-OP-C Subjective Start: 11/10/24 19:18 Freq: Status: Active Protocol: Document 11/15/24 10:01 LRN (Rec: 11/15/24 11:57 LRN [id number]) Patient Questionnaires Neck Disability Index NDI Score 23 (46% impaired) Neck Disability Index Impairment 40 to 59% Impaired (Score 20- 29) Quick Dash- Upper Extremity Quick Dash UE Score 75 Quick Dash UE Impairment 60 to 79% Impaired (Score 60- 79) OP-PT Pain Assessment Pain Assessment Grid Paper Pain Assessment Grid Completed Yes Location L hand Pain Location Details Entire hand, pain with gripping motion Intensity 0 Description- Other Hand problem is weakness, lacking coordinated mvmt. PT-OP-H Neuro Start: 11/10/24 19:18 Freq: Status: Active Protocol: Document 11/15/24 10:01 LRN (Rec: 11/15/24 11:57 LRN [id number]) Coordination Evaluation Upper Extremity Tests Right Finger to Nose Test Normal Performance Finger to Therapist's Finger Test Normal Performance Finger Opposition Test Minimal Impairment Mass Grasp Test Minimal Impairment Pronation/Supination Test Moderate Impairment Left Finger to Nose Test Normal Performance Finger to Therapist's Finger Test Normal Performance Finger Opposition Test Activity Impossible Mass Grasp Test Minimal Impairment Pronation/Supination Test Severe Impairment Comments Coordination Comments pronation/supination reps in 10 secs: 8x R, 3x L. PT-OP-K Range of Motion Start: 11/10/24 19:18 Freq: Status: Active Protocol: Document 11/15/24 10:01 LRN (Rec: 11/15/24 19:04 LRN [id number]) Finger Goniometric Range of Motion Finger ROM Limitations Finger ROM Limitations Soft Tissue Tightness Comments AROM: Santino hands: Flex: digits 2-5, dec'd 25%, Ext is WNL. PT-OP-M Strength Start: 11/10/24 19:18 Freq: Status: Active Protocol: Document 11/15/24 10:01 LRN (Rec: 11/15/24 11:57 LRN [id number]) Finger/Thumb Strength Finger Manual Muscle Testing R hand Flexion (fingers C8) 5 Normal Extension (thumb C8) 3 Fair Comments ABD, ADD, Extension is 5/5. Extension: digits 2-5 is 5/5. Thumb flexion is 4/5 L hand Flexion (fingers C8) 5 Normal Extension (thumb C8) 3 Fair Comments ABD: digits 3-5 is 0/5, Index finger is WNL. ADD: digits 3-5 0/5, Index finger WNL. Extension: digits 2-5 is 5/5. Thumb flexion is 2/5. Hand Active Directory Specialist/Pinch Strength Hand Dominance Hand Dominance Right Hand Strength Right Comments Active Directory Specialist strength (kgs): 18, 20, 19 (75+ females mean: 19.3.0 R, 17.1 L) Left Comments Active Directory Specialist strength (kgs): 15, 16, 16 (75+ females mean: 19.3.0 R, 17.1 L) PT-OP-Q Treatments Start: 11/10/24 19:18 Freq: Status: Active Protocol: Document 11/15/24 10:01 LRN (Rec: 11/15/24 11:57 N [id number]) Therapeutic Exercises Sitting Exercises Open/close fist Side bilateral Reps/Minutes 10x Comments Pt moves slowly with exer Finger AB Sitting Exercise Name Spreading of fingers, assist to L fingers with R hand. Reps/Minutes 5 SH x 5 Comments Extra time for training correct movement for ex Finger AD Sitting Exercise Name Beatriz AD with fingers straight and interlacing fingers Side bilateral Reps/Minutes 5 SH x 5 Comments Extra time for training correct movement for ex Self-Care/Home Management Treatment Education Other Education Discussed results of evaluation, goals, treatment, and plan of care (POC) with pt ; pt agreeable to evaluation, goals, treatment, and POC. Extra time was taken for discussion of current condition with pt giving back story to involvement of the R shoulder to her L UE problem that is the focus of her attendance today. Activities Self-Care/Home Management Activities Issued HEP: finger AD, AB, ext hand open/close. PT-OP-T Assessment and Plan Start: 11/10/24 19:18 Freq: Status: Active Protocol: Document 11/15/24 10:01 LRN (Rec: 11/15/24 11:57 LRN [id number]) Physical Therapy Assessment Rehab Potential Rehabilitation Potential Fair Evaluation Complexity Number of Personal Factors/Comorbidities 1-2 Number of Body Systems Impaired 4 or More Clinical Presentation at Evaluation Evolving Impairments Impairments Activity Tolerance, Coordination,Functional Activities,Functional Mobility ,ROM,Soft Tissue Mobility, Strength Goals Three Impairment Decreased mobility and coordination of hands Short Term Goal (STG) Improve coordination of L hand sup/pron in 10 secs - 5-6x L (8x R) STG Duration 12/30/24 Intermediate Goal (LTG) Improve L hand agility for scrubbing scalp when washing hair (horizontally fwd/bkwd with pressure onto head) and scratching skin (UD/RD mvmt speed). LTG Duration 02/10/25 Two Impairment Decreased L UE functional strength (lifting cups, washing body & hair) Short Term Goal (STG) Strengthen the L hand functional strength to be able to hold a cup, and washcloth to be able to self bath. STG Duration 12/30/24 Senior Technical Recruiter Goal (LTG) Strengthen arm to be able to shampoo the hair and scrub scalp. LTG Duration 02/10/25 One Impairment Lacks appropriate self care HEP Short Term Goal (STG) Pt will be educated in self care contrast bath treatment to reduce swelling and improve finger joint mobility. STG Duration 12/30/24 Intermediate Goal (LTG) Pt will be consistent and independent with a self care HEP of hand, wrist, forearm, shoulder ROM/strengthenig ex's , UE coordination mvmt ex's, and cervical ex's as needed. LTG Duration 02/10/25 Assessment Summary Assessment Pt is a 74 yo female who presents with stiffness of L<R hand finger joints and lack of hand/forearm coordination and speed of movement with finger and forearm movements. She reportedly is being assessed for Parkinson's and does exhibit stiffness of posturing and slowness of gait . Extra time was needed to exam the pt's mobility and strength of specific aspects of her hands; therefore assessment of her neck and shoulders was deferred until the next treatement session, but because she is not reporting pain in her UE's it doesn't appear she is having obvious cervical radicular involvement at this time. The pt has a fair prognosis and it is expected that improvement will be slow and therapy will be prolonged due to comorbiities of a recent L clavicle fracture (06/09/24), R total shoulder (05/12/2024), and her reported long history of depression and anxiety. She describes a supportive home situation. The pt will benefit from skilled physical therapy to work towards achieving the above stated goals. Physical Therapy Plan Frequency and Duration Frequency of Treatment 2x/Week Duration of treatment (weeks) 12 Plan of Care Start Date 11/15/24 Plan of Care End Date 02/10/25 Therapeutic Interventions Therapeutic Interventions Home Exercise Program,Manual Therapy,Neuromuscular Re- education,Patient/Caregiver Education,Self-Care/Home Management,Soft Tissue Mobilization,Therapeutic Activities,Therapeutic Exercises Modalities Cold Pack/Ice Massage,Hot Packs,Paraffin Bath Next Visit Focus/Plan Next Note Type Treatment Note Next Visit Plan Assess mvmt speed in 10 secs for UD/RD mvmt, for washing hair and scratching skin. Assess cervical and santino shoulder for involvement in hand stiffness. Assess pinch strength with exercise. POC: Rehab for L hand stiffness and lack of coordination and speed of mvmt , with lesser extent the R hand. Improve L UE functional strength (lifting cup into cupboard) and ROM for washing hair and under arms, folding clothes, buttoning shirts or pants. Pt education (HEP), Manual therapy. ROM, stabilization and strengthening ex's, UE neural glides, and education for self care of ex's, posturing/positioning, body mechanics training and home modalities (paraffin dip).
--- NOTE | 2024-11-24 15:12 | PT.OPDS ---
Current Diagnoses Spondylosis without myelopathy or radiculopathy, cervical region (11/15/24) Radiculopathy, cervical region (11/15/24) Other lack of coordination (11/15/24) Other symptoms and signs involving the musculoskeletal system (11/15/24) Visit Care Team Role Provider Type Nba Kessler MD Family Provider Physician Primary Care Provider Specialty: Internal Medicine Address: [address] [place] [address], [id number] Email: [email or web address] Cinthia Chris PA-C Attending Provider Non-Staff Referring Provider Specialty: Orthopedic Surgery Address: [address] [place] [address] , [place], [address] Email: [email or web address] Visit Number Visit Number 1 Discharge Summary PT-OP-B Current Condition Start: 11/10/24 19:18 Freq: Status: Active Protocol: Document 11/15/24 10:01 LRN (Rec: 11/15/24 11:57 LRN [id number]) Current Condition History of Current Condition Onset Date 06/09/24 Current Complaints Can't move her fingers quickly , only slowly and not able to grasp well. History of Current Condition Pt reports the main problem today is for the L hand not responding. She states EMG performed and was told she has elements of Parkinsons and has been having therapy for gait. 4 wks after R rotator cuff surgery on 06/09/24 she was getting out of her home sauna and fell, helped her to ER, and was found to have fx'd L Clavicle. Pt reports being R handed. States she now can't fold clothes, button shirts or pants, reach for cups in a cupboard, hold onto a wash cloth to wash under her arms, spouse has to help with bathing/washing hair, dressing , cooking and all the tasks around the house (she picks up dog toys). 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 She reports problems with cervical spine, Has had a bunch of falls. She c/o hump on back that she feels is not scoliosis, but clavicle related. Prior Treatments and Tests X-ray 3/20/25: Multilevel degenerative changes most pronounced at C5-C6, mod central canal stenosis. mild anterolisthesis C3 on C4, mild retrolisthesis C5-T4. X-ray 11/05/24: Thoacic spine: S-shaped scoliosis, multilevel foraminal narrowing . X-ray 11/05/24: Lumbar spine: Multilevel spinal stenosis, most severe at L4-L5 2ndary to disc bulge, moderate to severe foraminal narowing most at L3-4 through L5-S1 with areas of nerve root compression. 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 Pt reports long history, starting with R arm problem when she had bruising down the arm and was diagnosed with a bad R rotator cuff, and had surgery that did not work. She then had a R shoulder replacement (05/12/2024) and has only range of 90 deg's flexion and can barely reach behind her head. She states four wks after TSA surgery she was getting out of her home sauna and fell, helped take her to ER, and was found to have a fx'd L Clavicle. States she used to be athletic, but now goes to [employer] gym only ~ 3x/week, but last week had a lot of PT appts and didn't feel well and was depressed, so she did not go exercise. Treatment Goals Patient/Caregiver Goals Pt goal: -strengthen the hands to be able to hold a cup, washcloth, -strengthen arm to be able to shampoo the hair and scrub scalp. -move L hand faster with more agility for scrubbing scalp when washing hair ( horizontally fwd/bkwd with pressure onto head) and scratching skin. Personal Factors Other Personal Factors That May Effect -Suffering from depression Therapy/Recovery since 05/2024, and has been on Prozac/anti-depressants since her 30's, receiving mental health visits since 2018. She reports currently being on a new anti-depressant medication . -recent L clavicle fracture on 06/09/24 and prior R TSA after failed R RCR. -Osteoporosis, -hearing problem, -falls with possible concussion -back pain & arthritis PT-OP-C Subjective Start: 11/10/24 19:18 Freq: Status: Active Protocol: Document 11/15/24 10:01 LRN (Rec: 11/15/24 11:57 LRN [id number]) Patient Questionnaires Neck Disability Index NDI Score 23 (46% impaired) Neck Disability Index Impairment 40 to 59% Impaired (Score 20- 29) Quick Dash- Upper Extremity Quick Dash UE Score 75 Quick Dash UE Impairment 60 to 79% Impaired (Score 60- 79) OP-PT Pain Assessment Pain Assessment Grid Paper Pain Assessment Grid Completed Yes Location L hand Pain Location Details Entire hand, pain with gripping motion Intensity 0 Description- Other Hand problem is weakness, lacking coordinated mvmt. PT-OP-H Neuro Start: 11/10/24 19:18 Freq: Status: Active Protocol: Document 11/15/24 10:01 LRN (Rec: 11/15/24 11:57 LRN [id number]) Coordination Evaluation Upper Extremity Tests Right Finger to Nose Test Normal Performance Finger to Therapist's Finger Test Normal Performance Finger Opposition Test Minimal Impairment Mass Grasp Test Minimal Impairment Pronation/Supination Test Moderate Impairment Left Finger to Nose Test Normal Performance Finger to Therapist's Finger Test Normal Performance Finger Opposition Test Activity Impossible Mass Grasp Test Minimal Impairment Pronation/Supination Test Severe Impairment Comments Coordination Comments pronation/supination reps in 10 secs: 8x R, 3x L. PT-OP-K Range of Motion Start: 11/10/24 19:18 Freq: Status: Active Protocol: Document 11/15/24 10:01 LRN (Rec: 11/15/24 19:04 LRN [id number]) Finger Goniometric Range of Motion Finger ROM Limitations Finger ROM Limitations Soft Tissue Tightness Comments AROM: Guille hands: Flex: digits 2-5, dec'd 25%, Ext is WNL. PT-OP-M Strength Start: 11/10/24 19:18 Freq: Status: Active Protocol: Document 11/15/24 10:01 LRN (Rec: 11/15/24 11:57 LRN [id number]) Finger/Thumb Strength Finger Manual Muscle Testing R hand Flexion (fingers C8) 5 Normal Extension (thumb C8) 3 Fair Comments ABD, ADD, Extension is 5/5. Extension: digits 2-5 is 5/5. Thumb flexion is 4/5 L hand Flexion (fingers C8) 5 Normal Extension (thumb C8) 3 Fair Comments ABD: digits 3-5 is 0/5, Index finger is WNL. ADD: digits 3-5 0/5, Index finger WNL. Extension: digits 2-5 is 5/5. Thumb flexion is 2/5. Hand Record Tester/Pinch Strength Hand Dominance Hand Dominance Right Hand Strength Right Comments Record Tester strength (kgs): 18, 20, 19 (75+ females mean: 19.3.0 R, 17.1 L) Left Comments Record Tester strength (kgs): 15, 16, 16 (75+ females mean: 19.3.0 R, 17.1 L) PT-OP-T Assessment and Plan Start: 11/10/24 19:18 Freq: Status: Active Protocol: Document 11/24/24 15:01 LRN (Rec: 11/24/24 15:12 LRN [id number]) Physical Therapy Assessment Goals Three Impairment Decreased mobility and coordination of hands Short Term Goal (STG) Improve coordination of L hand sup/pron in 10 secs - 5-6x L (8x R) STG Duration 12/30/24 (11/24/24: NOT MET GOAL, early DC) Jail Goal (LTG) Improve L hand agility for scrubbing scalp when washing hair (horizontally fwd/bkwd with pressure onto head) and scratching skin (UD/RD mvmt speed). LTG Duration 02/10/25 (11/24/24: NOT MET GOAL, early DC) Two Impairment Decreased L UE functional strength (lifting cups, washing body & hair) Short Term Goal (STG) Strengthen the L hand functional strength to be able to hold a cup, and washcloth to be able to self bath. STG Duration 12/30/24 (11/24/24: NOT MET GOAL, early DC) Cable Systems Installer Goal (LTG) Strengthen arm to be able to shampoo the hair and scrub scalp. LTG Duration 02/10/25 (11/24/24: NOT MET GOAL, early DC) One Impairment Lacks appropriate self care HEP Short Term Goal (STG) Pt will be educated in self care contrast bath treatment to reduce swelling and improve finger joint mobility. STG Duration 12/30/24 (11/24/24: NOT MET GOAL, early DC) Jail Goal (LTG) Pt will be consistent and independent with a self care HEP of hand, wrist, forearm, shoulder ROM/strengthenig ex's , UE coordination mvmt ex's, and cervical ex's as needed. LTG Duration 02/10/25 (11/24/24: NOT MET GOAL, early DC) Assessment Summary Assessment Pt is a 74 yo female with stiffness of L<R hand finger joints and lack of hand/ forearm coordination and speed of movement with finger and forearm movements. The pt was seen only for an initial evaluation before [facility] to cancel all her visits because she had received a diagnosis of Parkinsons and is needing to take a break from PT. Pt requests DC and will be discharged today from physical therapy. Physical Therapy Plan Discharge Physical Therapy Discharge Reasons Patient Request Discharge Comments Pt PT appt cancelled for pt to begin OT rehabilitation. Pt was informed of [facility] / [facility] program for Parkinson's patients and recommended after OT she considers request for [facility] physical therapy referral.
== END 2024-12-02 12:31 | disposition home or self-care (01) ==
LOC: PHYS 09:44
PROVIDERS: Family Provider Internal Medicine; PCP Internal Medicine; Referring Provider Physician Assistant Surgical; Visit Provider Physician Assistant Surgical
DX: R27.8 Other lack of coordination (principal); R29.898 Other symptoms and signs involving the musculoskeletal system; M54.12 Radiculopathy, cervical region; M47.812 Spondylosis without myelopathy or radiculopathy, cervical region
CPT/HCPCS: 97110; 97162; 97535

== ENCOUNTER → 2024-12-20 10:38 | Outpatient (CLI) | payer MEDICARE, OTHER, SELFPAY ==
[2024-12-20 11:43] LABS: Appearance Urine UA CLEAR; Bilirubin Urine UA NEGATIVE (NEGATIVE); Color Urine UA YELLOW; Glucose Urine UA NEGATIVE (Negative); Ketones Urine UA NEGATIVE (NEGATIVE); Leukocyte Esterase Urine UA 1+ (NEGATIVE); Nitrite Urine UA NEGATIVE (Negative); Occult Blood Urine UA TRACE-INTACT (Negative); Protein Urine UA NEGATIVE (Negative); Urobilinogen Urine UA 0.2 E.U./dL (0.2)
[2024-12-20 11:53] LABS: pH Urine UA 6.5 (4.5-8.0)
[2024-12-20 11:54] LABS: Bacteria Urine Moderate (10-30); Culture Indicated Urine Specimen Cultured; RBC Urine 1-5/HPF (0-5/HPF); Squamous Epithelial Cell Urine 1-5 /HPF (0-5/HPF); Urine Volume 10mL (spun); WBC Urine 10-30/HPF (0-5/HPF)
== END ==
PROVIDERS: Family Provider Internal Medicine; PCP Internal Medicine; Referring Provider Internal Medicine; Visit Provider Internal Medicine
DX: R30.0 Dysuria (principal); R39.89 Other symptoms and signs involving the genitourinary system
CPT/HCPCS: 81001; 87077; 87086; 87186

== ENCOUNTER → 2024-12-21 12:13 | Outpatient (CLI) | payer MEDICARE, OTHER, SELFPAY ==
--- NOTE | 2024-12-21 12:57 | EKG_ITS ---
[address] [address] Test Date: 2024-12-21 Pat Name: Diana Pennington Department: [facility] Room: Gender: Female Pulling Unit Floorhand: LUBNA : 1950 Requested By: Order Number: [id number] Reading MD: Jay Luevano Measurements Intervals Hector Rate: 60 P: 61 NH: 180 QRS: 59 QRSD: 100 T: 54 QT: 454 QTc: 454 Interpretive Statements Normal sinus rhythm Electronically Signed On 12-21-2024 17:41:00 PDT by Jay Luevano
[2024-12-21 13:21] LABS: Hematocrit 35.5 % (36-46); Hemoglobin 12.4 g/dL (12.0-16.0); Mean Corpuscular HGB Conc 34.9 % (30-36); Mean Corpuscular Hemoglobin 32.5 PG (26-34); Platelet Count 284 X10^3/uL (150-400); Red Blood Cell Count 3.82 X10^6/uL (4.0-5.2); Red Cell Distribution Width 13.6 % (11.6-14.8); White Blood Cell Count 3.9 X10^3/uL (4.5-11.0)
[2024-12-21 13:23] LABS: Hemoglobin A1C% w Est Avg Glu 5.1 % (4.0-6.0)
[2024-12-21 13:39] LABS: Alanine Aminotransferase 20 IU/L (<35); Albumin 4.6 g/dL (3.5-5.0); Albumin Globulin Ratio 2.1 (1.0-2.8); Alkaline Phosphatase 99 U/L (38-126); Aspartate Aminotransferase 32 IU/L (14-36); BUN Creatinine Ratio 25.9 (6-22); Bilirubin Total 0.5 mg/dL (0.2-1.3); Blood Urea Nitrogen 15 mg/dL (7-17); Calcium 9.5 mg/dL (8.4-10.2); Carbon Dioxide 28 mmol/L (22-32); Chloride 95 mmol/L (98-107); Estimated Glomerular Filt Rate > 60 mL/min (>60); Globulin 2.2 g/dL (1.7-4.1); Glucose 85 mg/dL (70-99); HEMOLYSIS < 15 (0-50); Potassium 4.3 mmol/L (3.4-5.1); Sodium 130 mmol/L (137-145); Total Protein 6.8 g/dL (6.3-8.2)
== END ==
PROVIDERS: Family Provider Internal Medicine; PCP Internal Medicine; Referring Provider Internal Medicine; Visit Provider Internal Medicine
DX: Z01.818 Encounter for other preprocedural examination (principal); E03.9 Hypothyroidism, unspecified; I10 Essential (primary) hypertension
CPT/HCPCS: 36415; 80053; 83036; 84443; 85027; 93005

== ENCOUNTER → 2024-12-23 07:13 | Outpatient (CLI) | payer MEDICARE, OTHER, SELFPAY ==
[2024-12-23 11:30] LABS: MRSA (Nasal) PCR NOT DETECTED (Not Detect)
== END ==
LOC: LAB 07:15
PROVIDERS: Family Provider Internal Medicine; PCP Internal Medicine; Visit Provider Internal Medicine
DX: Z01.812 Encounter for preprocedural laboratory examination (principal); M54.12 Radiculopathy, cervical region; R29.898 Other symptoms and signs involving the musculoskeletal system
CPT/HCPCS: 87797

== ENCOUNTER 2025-01-09 10:45 | Outpatient (RCR) | payer MEDICARE, OTHER, SELFPAY ==
--- NOTE | 2024-12-26 14:42 | OT.OPPOC ---
Physical, Occupational & Speech Therapy At [facility] Diana Pennington [id number] Visit Care Team Role Provider Type Nba Kessler MD Attending Provider Physician Family Provider Primary Care Provider Referring Provider Address: [address] [place] [address], [id number] Occupational Therapy Plan of Care OT Outpatient Adult Evaluation Start: 12/26/24 14:07 Freq: Status: Active Protocol: Document 12/26/24 14:07 CECILYMAVALORIE (Rec: 12/26/24 14:[id number] General Information - Adult Visit Information Visit Number 1 Plan of Care Dates 12/26/24 - 02/06/25 Insurance Information Medicare, KX modifier after visit Session Time Visit Start Date 12/26/24 Visit Start Time 09:50 Visit Stop Time 10:45 Setting Treatment Setting Outpatient Care Visit Type Note Type Initial Evaluation Referral Referring Physician Nba Kessler Reason for Referral cervical radiculopathy, Parkinson's, L hand weakness Identification Identification Confirmed Yes Identification Confirmed By name, EMR Patient Questionnaires Quick Dash- Upper Extremity Quick Dash UE Score 68.2 Quick Dash UE Impairment 60 to 79% Impaired (Score 60- 79) Quick Dash- Work and Sports Modules Quick Dash W&S Score W 68.75, S 100 Quick Dash Work and Sport Impairment 100% Impaired (Score 100) Goals Objective Measurements Objective Measurements Kapandji Opposition 06/02 B Kapandji Retroposition: R 2/4, L 1/4 AROM CMC: RA R 35, L 30; PA R 40, L 35 Dairy Husbandry Worker: R 40, 45, 40 (avg 41.7#) , L 30, 35, 25 (avg 30#) Pinch: lateral R 11#, L 9#; pincer R 5#, L 6#; 3 jaw R 7#, L 5# 9 hole peg test: R 39 seconds, L 3 minutes 27 seconds Treatment Treatment HEP: Pt educated on and issued HEP for improved finger isolation (finger taps, finger pen hurdles) and improved web space (adductor release) Short Term Goals Short Term Goals 1. Pt will be I with initial HEP. 2. Pt will demonstrate improved FMC as evidenced by performing 9 HPT in 3 min or better. 3. Pt will demonstrate folding laundry items for 3 minutes without dropping an item. Sample Hand Goals Sample Hand Goals 1. Pt will use button hook for button up shirt with mod I 2. Pt will demonstrate improved FMC as evidenced by performing 9 HPT in 2 min or better. 3. Pt will demonstrate opening and closing medication bottles x 10 trials dropping lid no more than 2 times. 4. Pt will button her pants with min A at most. Assessment/Plan Assessment Patient Response Fair Rehabilitation Potential Good Impairments Identified ADLs,Body Mechanics, Contractures,Coordination/ Dexterity,Flexibility, Functional Activities,Motor Function,Pain,Weakness,Range of Motion,Meaningful Activities,Stiffness,Soft Tissue Mobility,Motor Planning Treatment Assessment Pt is a 74 yo F referred to skilled OT services by MD with diagnosis of cervical radiculopathy and Parkinson?s. Per MDs documentation pt presents with L hand weakness and decreased dexterity. Pt reports that approximately 1 year ago she had a fall on while on vacation that led to multiple complications. She believes that this may have been the initial cause for her decreased ability to use her L hand since then. Pt?s medical history is significant for arthritis, back pain, HTN , depression, falls, DIOMEDE, R hip replacement, R shoulder replacement, neck pain ( upcoming cervical surgery scheduled), osteoporosis, thyroid disorder, and anxiety. Pt rates pain at 2/10 in hands. Pt c/o difficulty using her L hand form most functional tasks. 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 These are tasks that are meaningful to the pt. Currently, pt?s spouse has to assist with performing many of these tasks . 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 Pt presents with pronounced arthritic changes in B hands. Pt presents with shoulder deformity B thumbs, with CMC joint line being tender to the touch for the L side only. Pt has significantly reduced web space B with L>R. Pt?s L digits sway ulnarly at MPs. Pt with tight and pronounced tendons in palm of L hand, keeping palm in somewhat of a cupped shape. Pt has limited AROM of B wrists but both are roughly equal and not a personal complaint for pt. Pt is able take her hands through a series of active movements including flat hand, table top, flat fist, hook fist, and full fist. Pt is limited on the L hand with the hook position but otherwise is equal to the R side. Pt has limited retroposition of B thumbs with L > R. Pt with dysdiadochokinesia of the L hand. Pt performs 9 hole peg test assessment for fine motor control. Pt is able to complete on the R in 39 seconds with the L requiring 3 minutes and 27 seconds. Skilled OT services are appropriate to assist pt with current deficits, including FMC, muscle weakness, ROM, decreased BADL/IADL, soft tissue restrictions, dexterity , and to promote return toward PLOF. Reviewed with Patient Goals,Home Exercise Program Plan Length of treatment (weeks) 6 Plan of Care Start Date 12/26/24 Plan of Care End Date 02/06/25 Treatment Frequency Twice a Week Treatment Duration 45 Minutes Therapeutic Contents Active Range of Motion, Adaptive Equipment Education, Client Education,Functional Activities,Home Exercise Program,Joint Protection, Manual Therapy,Education, Neuromuscular Re-Education, Self-Care,Stretching/ Flexibility Activities, Therapeutic Activities, Therapeutic Exercises, Modalities Modalities As Needed Types of Modalities Cyrotherapy,Ice Massage Additional Types of Modalities MHP Patient Instruction Home Exercise Program,Plan of Care,Questions/Concerns Functional Wrist/Hand Scan Hand Side Sensory Assessment Sensory Profile2 Electronically Signed by: Sirena Arias OT 12/26/24 0575 If you are in agreement with this Plan of Care, please return a signed and dated copy. I have reviewed this Plan of Care and certify that the skilled therapy services above are required to meet the patient?s needs. Physician Signature Date Printed Name and Credentials Clinical Instructor Signature Printed Name and Credentials
--- NOTE | 2025-01-02 12:40 | OT.OP.TRT ---
Visit Care Team Role Provider Type Nba Kessler MD Attending Provider Physician Family Provider Primary Care Provider Referring Provider Specialty: Internal Medicine Address: [address] [place] [address], [id number] Email: [email or web address] Occupational Therapy Treatment Note OT Outpatient Treatment Note - Adult Start: 12/26/24 14:07 Freq: Status: Active Protocol: Document 01/02/25 10:54 JULES (Rec: 01/02/25 11:29 JULES [id number]) OT Outpatient Adult Treatment Note Session Time Visit Start Date 01/02/25 Visit Start Time 10:49 Visit Stop Time 11:30 Visit Information Visit Number 10/05 Plan of Care Dates 12/26/24 - 02/06/25 Insurance Information Medicare, KX modifier after visit Setting Treatment Setting Outpatient Care Visit Type Note Type Treatment Note - Subjective Identification Type Name Identification Reconciled With Medical Record Observations Pt reports that she has had a very busy week and had difficulty getting her exercises in more than twice. My brain really has to focus on these exercises. Chief Complaint(s) Loss of Motion/Stiffness - Objective Short Term Goals 1. Pt will be I with initial HEP. 2. Pt will demonstrate improved FMC as evidenced by performing 9 HPT in 3 min or better. 3. Pt will demonstrate folding laundry items for 3 minutes without dropping an item. Debeader Goals 1. Pt will use button hook for button up shirt with mod I 2. Pt will demonstrate improved FMC as evidenced by performing 9 HPT in 2 min or better. 3. Pt will demonstrate opening and closing medication bottles x 10 trials dropping lid no more than 2 times. 4. Pt will button her pants with min A at most. - Treatment 3 Descriptor In hand manipulation: small porcupine ball CW and CCW, attempted palmar grasp, translation to distal fingertips, and placed in bowl x15 2 Descriptor Finger Isolation: alternating digit tapping x5 digit abd/add, attempted, pt unable to isolate alternating digit o tip pinch x5 rhythmic finger taps (5th to 2nd) x5 1 Descriptor Rubber band: digit abd/add x 20 1 DI 10 x 2 Exercises 1 Descriptor Pinch strength/dexterity: -graded clothespins on perpendicular bars yellow, red , green, blue, black Manual Therapy Manual Therapy L thumb adductor release - Assessment Patient Response to Treatment Fair Rehabilitation Potential Good Impairments Identified ADLs,Body Mechanics, Contractures,Coordination/ Dexterity,Flexibility, Functional Activities,Motor Function,Pain,Weakness,Range of Motion,Meaningful Activities,Stiffness,Soft Tissue Mobility,Motor Planning Progress Towards Goals Slow Progress Assessment of Overall Progress Improving Assessment of Improvement Pt is pleasant, cooperative, and eager to improve. Pt has a difficult time initiating the movements she is attempting to perform, especially with finger isolation. Pt desires to use her L hand more functionally especially to assist with her art work and piano playing, but this is limited by her L hand. Pt tolerated the adductor release to encourage improved webspace and object manipulation with L hand. Pt needs increased time to transition and to attempt tasks due to increased processing needs. Tasks were modified and adapted as able. When not able to adapt/modify, tasks were changed altogether . Pt is having a difficult time with HEP finger taps, pt tolerated rhythmic tapping better in todays session. OT recommends replacing her HEP exercise to rhythmic instead. Pt continues to be appropriate for skilled OT services. Cont per established POC. Reviewed with Patient/Caregiver Goals,Home Exercise Program - Plan Therapy Recommendations Continue with Current Program Amount of Therapy Recommended 1-2 Months Frequency of Treatment Twice a Week Length of Session 45 Minutes Therapeutic Contents Active Range of Motion, Adaptive Equipment Education, Client Education,Functional Activities,Home Exercise Program,Joint Protection, Manual Therapy,Education, Neuromuscular Re-Education, Self-Care,Stretching/ Flexibility Activities, Therapeutic Activities, Therapeutic Exercises Modalities As Needed Types of Modalities Cyrotherapy,Ice Massage Additional Types of Modalities [facility]
--- NOTE | 2025-01-09 13:16 | OT.OP.TRT ---
Visit Care Team Role Provider Type Nba Kessler MD Attending Provider Physician Family Provider Primary Care Provider Referring Provider Specialty: Internal Medicine Address: [address] [place] [address], [id number] Email: [email or web address] Occupational Therapy Treatment Note OT Outpatient Treatment Note - Adult Start: 12/26/24 14:07 Freq: Status: Active Protocol: Document 01/09/25 10:46 JULES (Rec: 01/09/25 11:46 JULES [id number]) OT Outpatient Adult Treatment Note Session Time Visit Start Date 01/09/25 Visit Start Time 10:50 Visit Stop Time 11:30 Visit Information Visit Number 11/02 Plan of Care Dates 12/26/24 - 02/06/25 Insurance Information Medicare, KX modifier after visit Setting Treatment Setting Outpatient Care Visit Type Note Type Treatment Note - Subjective Identification Type Name Identification Reconciled With Medical Record Observations Pt reports that she has not been able to isolate her finger movements with HEP. This has become frustrating for the pt. Pt has sx for her cervical spine January 23. Chief Complaint(s) Loss of Motion/Stiffness - Objective Short Term Goals 1. Pt will be I with initial HEP. 2. Pt will demonstrate improved FMC as evidenced by performing 9 HPT in 3 min or better. 3. Pt will demonstrate folding laundry items for 3 minutes without dropping an item. Channel Cementer Goals 1. Pt will use button hook for button up shirt with mod I 2. Pt will demonstrate improved FMC as evidenced by performing 9 HPT in 2 min or better. 3. Pt will demonstrate opening and closing medication bottles x 10 trials dropping lid no more than 2 times. 4. Pt will button her pants with min A at most. - Treatment 4 Descriptor ADL: general education on button hook for shirt and pants. OT encourages pt to wear clothes that have buttons next tx to address. AE education on modifications for pt's existing glasses/cups . Pt has reported difficulty in holding and carrying a glass and fears that she will drop it. OT printed several options for pt to consider. Pt verbalized understanding. 3 Descriptor In hand manipulation/FMC: -nuts and bolts, using 1st-3rd digits to tighten nut x2 -nuts and wing nuts, using 1st -3rd digits to tighten nut x2 2 Descriptor Finger Isolation: alternating digit o tip pinch x5 rhythmic finger taps (5th to 2nd) alternating digit tapping Exercises 1 Descriptor Pinch strength/dexterity: tputty: -gross grasp -alternating pinch -digit ext/abd (loop) -removing small items (4) - Assessment Patient Response to Treatment Fair Rehabilitation Potential Good Impairments Identified ADLs,Body Mechanics, Contractures,Coordination/ Dexterity,Flexibility, Functional Activities,Motor Function,Pain,Weakness,Range of Motion,Meaningful Activities,Stiffness,Soft Tissue Mobility,Motor Planning Progress Towards Goals Slow Progress Assessment of Overall Progress Improving Assessment of Improvement Pt is pleasant, cooperative, and eager to improve. Pt expressed frustration with difficulty performing HEP finger isolation exercises. OT d/c initial HEP, replacing it with tputty HEP. Pt performed these exercises in clinic today to make sure that she will be successful and benefit form these at home. Pt requires vcs to remember to use her L hand as opposed to her R. Pt continues to needs increased time to transition and to attempt tasks due to increased processing needs. OT encouraged pt to bring in clothing with buttons next tx to practice button hook strategies. Pt continues to be appropriate for skilled OT services. Cont per established POC. Home Exercise Program tputty: gross grasp, log roll, alternating pinches, putty pull, and finding small objects Reviewed with Patient/Caregiver Goals,Home Exercise Program - Plan Therapy Recommendations Continue with Current Program Amount of Therapy Recommended 1-2 Months Frequency of Treatment Twice a Week Length of Session 45 Minutes Therapeutic Contents Active Range of Motion, Adaptive Equipment Education, Client Education,Functional Activities,Home Exercise Program,Joint Protection, Manual Therapy,Education, Neuromuscular Re-Education, Self-Care,Stretching/ Flexibility Activities, Therapeutic Activities, Therapeutic Exercises Modalities As Needed Types of Modalities Cyrotherapy,Ice Massage Additional Types of Modalities [facility]
--- NOTE | 2025-02-01 13:10 | OT.OP.DC ---
Visit Care Team Role Provider Type Nba Kessler MD Attending Provider Physician Family Provider Primary Care Provider Referring Provider Address: [address] [place] [address], [id number] Email: [email or web address] OT Outpatient OT Outpatient Adult Evaluation Start: 12/26/24 14:07 Freq: Status: Active Protocol: Document 12/26/24 14:07 JULES (Rec: 12/26/24 14:41 JULES [id number]) General Information - Adult Visit Information Visit Number 1 Plan of Care Dates 12/26/24 - 02/06/25 Insurance Medicare, KX modifier after visit Information Session Time Visit Start Date 12/26/24 Visit Start Time 09:50 Visit Stop Time 10:45 Setting Treatment Setting Outpatient Care Visit Type Note Type Initial Evaluation Referral Referring Physician Nba Kessler Reason for Referral cervical radiculopathy, Parkinson's, L hand weakness Identification Identification Yes Confirmed Identification name, EMR Confirmed By Patient Questionnaires Quick Dash- Upper Extremity Quick Dash UE Score 68.2 Quick Dash UE 60 to 79% Impaired (Score 60-79) Impairment Quick Dash- Work and Sports Modules Quick Dash W&S Score W 68.75, S 100 Quick Dash Work and 100% Impaired (Score 100) Sport Impairment Goals Objective Measurements Objective Kapandji Opposition 10/10 B Measurements Kapandji Retroposition: R 2/4, L 1/4 AROM CMC: RA R 35, L 30; PA R 40, L 35 Title I Math Tutor: R 40, 45, 40 (avg 41.7#), L 30, 35, 25 (avg 30#) Pinch: lateral R 11#, L 9#; pincer R 5#, L 6#; 3 jaw R 7#, L 5# 9 hole peg test: R 39 seconds, L 3 minutes 27 seconds Treatment Treatment HEP: Pt educated on and issued HEP for improved finger isolation (finger taps, finger pen hurdles) and improved web space (adductor release) Short Term Goals Short Term Goals 1. Pt will be I with initial HEP. 2. Pt will demonstrate improved FMC as evidenced by performing 9 HPT in 3 min or better. 3. Pt will demonstrate folding laundry items for 3 minutes without dropping an item. Wireless Field Technician Goals Wireless Field Technician Goals 1. Pt will use button hook for button up shirt with mod I 2. Pt will demonstrate improved FMC as evidenced by performing 9 HPT in 2 min or better. 3. Pt will demonstrate opening and closing medication bottles x 10 trials dropping lid no more than 2 times. 4. Pt will button her pants with min A at most. Assessment/Plan Assessment Patient Response Fair Rehabilitation Good Potential Impairments ADLs,Body Mechanics,Contractures,Coordination/Dexterity Identified ,Flexibility,Functional Activities,Motor Function,Pain, Weakness,Range of Motion,Meaningful Activities, Stiffness,Soft Tissue Mobility,Motor Planning Treatment Assessment Pt is a 74 yo F referred to skilled OT services by MD with diagnosis of cervical radiculopathy and Parkinson? s. Per MDs documentation pt presents with L hand weakness and decreased dexterity. Pt reports that approximately 1 year ago she had a fall on while on vacation that led to multiple complications. She believes that this may have been the initial cause for her decreased ability to use her L hand since then. Pt ?s medical history is significant for arthritis, back pain, HTN, depression, falls, RED CLIFF, R hip replacement, R shoulder replacement, neck pain (upcoming cervical surgery scheduled), osteoporosis, thyroid disorder, and anxiety. Pt rates pain at 2/10 in hands. Pt c/o difficulty using her L hand form most functional tasks. 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 These are tasks that are meaningful to the pt. Currently, pt?s spouse has to assist with performing many of these tasks. 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 Pt presents with pronounced arthritic changes in B hands. Pt presents with shoulder deformity B thumbs, with CMC joint line being tender to the touch for the L side only. Pt has significantly reduced web space B with L>R. Pt?s L digits sway ulnarly at MPs. Pt with tight and pronounced tendons in palm of L hand, keeping palm in somewhat of a cupped shape. Pt has limited AROM of B wrists but both are roughly equal and not a personal complaint for pt. Pt is able take her hands through a series of active movements including flat hand, table top, flat fist, hook fist, and full fist. Pt is limited on the L hand with the hook position but otherwise is equal to the R side. Pt has limited retroposition of B thumbs with L > R. Pt with dysdiadochokinesia of the L hand. Pt performs 9 hole peg test assessment for fine motor control. Pt is able to complete on the R in 39 seconds with the L requiring 3 minutes and 27 seconds. Skilled OT services are appropriate to assist pt with current deficits, including FMC, muscle weakness, ROM, decreased BADL/ IADL, soft tissue restrictions, dexterity, and to promote return toward PLOF. Reviewed with Goals,Home Exercise Program Patient Plan Length of treatment 6 (weeks) Plan of Care Start 12/26/24 Date Plan of Care End 02/06/25 Date Treatment Frequency Twice a Week Treatment Duration 45 Minutes Therapeutic Contents Active Range of Motion,Adaptive Equipment Education, Client Education,Functional Activities,Home Exercise Program,Joint Protection,Manual Therapy,Education, Neuromuscular Re-Education,Self-Care,Stretching/ Flexibility Activities,Therapeutic Activities, Therapeutic Exercises,Modalities Modalities As Needed Types of Modalities Cyrotherapy,Ice Massage Additional Types of MHP Modalities Patient Instruction Home Exercise Program,Plan of Care,Questions/Concerns Functional Wrist/Hand Scan Hand Side Sensory Assessment Sensory Profile2 OT Outpatient Treatment Note - Adult Start: 12/26/24 14:07 Freq: Status: Active Protocol: Document 02/01/25 11:00 JULES (Rec: 01/18/25 10:40 JULES [id number]) OT Outpatient Adult Treatment Note Visit Information Plan of Care Dates 12/26/24 - 02/06/25 Insurance Medicare, KX modifier after visit Information Visit Type Note Type Discharge Summary - - Objective Short Term Goals 1. Pt will be I with initial HEP. 2. Pt will demonstrate improved FMC as evidenced by performing 9 HPT in 3 min or better. 3. Pt will demonstrate folding laundry items for 3 minutes without dropping an item. Wireless Field Technician Goals 1. Pt will use button hook for button up shirt with mod I 2. Pt will demonstrate improved FMC as evidenced by performing 9 HPT in 2 min or better. 3. Pt will demonstrate opening and closing medication bottles x 10 trials dropping lid no more than 2 times. 4. Pt will button her pants with min A at most. - - Assessment Impairments ADLs,Body Mechanics,Contractures,Coordination/Dexterity Identified ,Flexibility,Functional Activities,Motor Function,Pain, Weakness,Range of Motion,Meaningful Activities, Stiffness,Soft Tissue Mobility,Motor Planning Assessment of Pt was seen for eval and two treatments prior to her Improvement cervical spine sx. Pt has cancelled subsequent appointments. OT called and spoke with pt today. She stated that I've been doing ok but I haven't been doing well. Pt would not elaborate and reports having a follow-up with MD. Pt reports that following her sx she was given a new referral for PT for her spine and UEs and reports that she will follow-up on this after her MD follow-up. Pt agrees to being d/c from skilled OT services at this. Pt's skilled OT tx focused on opening her thumb web space for improved use and mechanics, strengthening, in-hand manipulation, and FMC skills. D/C pt to HEP. Please re-order skilled OT services if indicated in the future. - Plan Therapy Discharge to Home Exercise Program,Discharge from Recommendations Occupational Therapy
== END 2025-02-03 12:48 | disposition home or self-care (01) ==
LOC: OT 10:45
PROVIDERS: Family Provider Internal Medicine; PCP Internal Medicine; Referring Provider Internal Medicine; Visit Provider Internal Medicine
DX: M54.12 Radiculopathy, cervical region (principal); G20.A1 Parkinson's disease without dyskinesia, without mention of fluctuations
CPT/HCPCS: 97110; 97140; 97166; 97530

== ENCOUNTER 2025-02-14 10:19 | Outpatient (CLI) | payer MEDICARE, OTHER, SELFPAY ==
[2025-02-14] VITALS (8 sets, daily range): BP systolic 125–169; BP diastolic 67–85; PULSE 64–70; RESP 14–16; TEMP 36.4; O2SAT 95–100
[2025-02-14] MEDS: MIDAZOLAM 2 MG/2 ML VIAL IV (11:36)
[2025-02-14] MEDS: BETAMETHASONE 30 MG/5 ML MDV 12 MG INJ (11:40)
[2025-02-14] MEDS: iopamidoL 15 ML VIAL 3 ML INJ (11:40)
[2025-02-14] MEDS: BUPIVACAINE 0.25% (PF) VIAL 2 ML INJ (11:40)
[2025-02-14] MEDS: DEXAMETHASONE 10 MG/ML VIAL INJ (11:41)
--- NOTE | 2025-02-14 11:54 | P.PCN_ITS ---
Date/Time/Diagnoses Date of procedure: 02/14/25 Time of procedure: 11:54 Pre-procedure diagnosis: 1. HNP WITH RADICULAR FEATURES, 2. MULTILEVEL CENTRAL STENOSIS, Post-procedure diagnosis: same Procedure Notes Procedure: 1. FLUOROSCOPICALLY GUIDED CONTRAST CONTROLLED INTERLAMINAR EPIDURAL STEROID INJECTION - L3/4 Indications: Diana is referred by Dr. Kessler for treatment of Bilateral Foraminal Stenosis L>R LE symptoms. Physician: Madhav David Total Fluoroscopy time (seconds): 10 Total sedation minutes: 13 Complications: none Procedure in detail & Post-procedure care: FINDINGS Multilevel Central Spinal Stenosis with Nerve Root Compression DESCRIPTION OF PROCEDURE Fluoroscopically guided, contrast-controlled L3/4 translaminar epidural steroid injection. Following review of allergy and review of potential side effects and complications, including, but not necessarily limited to, infection, allergic reaction, local tissue breakdown, temporary as well as permanent nerve injury, paralysis, stroke and possible , the patient indicated that the patient understood and agreed to proceed. An informed consent document was signed by the patient, witnessed by a nurse, and placed in the patient's chart. Additionally, other treatment options including modalities, medications, and physical therapy were reviewed with the patient. After review of previous anaesthesic history and IV conscious sedation the patient was deemed safe to proceed with today?s procedure with IV conscious sedation as ASA class II designation. Safety time-out was performed to confirm p atient ID, procedure to be performed and site of procedure. IV sedation was accomplished with a combination of 2mg of Versed was administered by the RN after DO order, titrated to patient comfort during the course of the procedure while the patient remained responsive to all verbal commands. In the prone position, following sterile prep and drape of the lumbar region, the L3/4 translaminar space was identified fluoroscopically. The skin was anesthetized via a 25-gauge, 1.5-inch needle with 1% lidocaine solution. At this point, a 22-gauge short bevel spinal needle was atraumatically introduced and advanced under fluoroscopic guidance into the region of the L3/4 translaminar space. Depth was confirmed on lateral view. Radiological data, including multiple fluoroscopic views of the lumbar spine, reveal a spinal needle at the L3/4 translaminar space. Lateral views then show placement of the needle in the epidural space. Subsequent views show contrast material flowing superiorly and inferiorly in the epidural space. No vascular or intrathecal uptake is observed. At this point, using loss of resistance technique with saline and air, the epidural space was entered. This was confirmed following negative aspiration with injection of approximately 1.5 cc of Isovue 200, showing excellent epidural flow without vascular or intrathecal uptake. At this point, 1cc of 0.25% cristobal ine solution combined with 3cc or 10mg of dexamethasone and 12mg of betamethasone was injected without incident. The patient tolerated the procedure well without signs or symptoms of complications prior to transfer to the recovery area continued monitoring without incident. The patient was then transferred to the recovery area where they were observed for an appropriate period of time after the injection. The patient reported a VAS score of 6 prior to the procedure and a post- procedure VAS of 0. POST OP INSTRUCTIONS The patient was provided a Pain Log to continue to record their response to the target-specific procedure prior to follow-up visit with their referring physician. Additionally, specific post-injection care instructions and a contact number to our office were provided if concerns arise regarding possible complications associated with the procedure are suspected.
== END 2025-02-14 12:10 | disposition home or self-care (01) ==
LOC: RAD 10:20
PROVIDERS: PCP Internal Medicine; Referring Provider Physical Medicine & Rehabilitation; Visit Provider Physical Medicine & Rehabilitation
DX: M51.16 Intervertebral disc disorders with radiculopathy, lumbar region (principal); M48.061 Spinal stenosis, lumbar region without neurogenic claudication
CPT/HCPCS: 62323; 99152; J0702; J1100; J2250

== ENCOUNTER → 2025-06-01 14:02 | Outpatient (CLI) | payer MEDICARE, OTHER, SELFPAY ==
[2025-06-01 14:39] LABS: Hematocrit 35.9 % (36-46); Hemoglobin 12.2 g/dL (12.0-16.0); Mean Corpuscular HGB Conc 34.0 % (30-36); Mean Corpuscular Hemoglobin 32.4 PG (26-34); Mean Corpuscular Volume 95.2 fL (80-100); Platelet Count 277 X10^3/uL (150-400)
[2025-06-01 15:03] LABS: Alanine Aminotransferase 28 IU/L (<35); Albumin 4.8 g/dL (3.5-5.0); Albumin Globulin Ratio 2.1 (1.0-2.8); Alkaline Phosphatase 106 U/L (38-126); Blood Urea Nitrogen 12 mg/dL (7-17); Calcium 9.5 mg/dL (8.4-10.2); Carbon Dioxide 26 mmol/L (22-32); Chloride 94 mmol/L (98-107); Cholesterol 190 mg/dL (140-199); Estimated Glomerular Filt Rate > 60 mL/min (>60); Globulin 2.3 g/dL (1.7-4.1); Glucose 90 mg/dL (70-99); HEMOLYSIS < 15 (0-50); Potassium 4.4 mmol/L (3.4-5.1); Sodium 131 mmol/L (137-145); Total Protein 7.1 g/dL (6.3-8.2); Triglycerides 62 mg/dL (35-150)
[2025-06-01 15:13] LABS: HDL Cholesterol 157 mg/dL (40-60)
[2025-06-01 15:31] LABS: TSH w/ Reflex to FT4 1.49 uIU/mL (0.47-4.68)
== END ==
PROVIDERS: PCP Internal Medicine; Referring Provider Internal Medicine; Visit Provider Internal Medicine
DX: E03.9 Hypothyroidism, unspecified (principal); M81.0 Age-related osteoporosis without current pathological fracture; E78.2 Mixed hyperlipidemia
CPT/HCPCS: 36415; 80053; 80061; 84443; 85027

== ENCOUNTER 2025-07-26 13:20 | Emergency (ER) | payer MEDICARE, OTHER, SELFPAY ==
[2025-07-26 13:35] VITALS: BP 134/78; PULSE 78; RESP 17; TEMP 36.6; O2SAT 98
--- NOTE | 2025-07-26 17:24 | ED.BACK ---
HPI - Back Pain/Injury General Chief Complaint: Back Pain/Injury Stated Complaint: depression, fell, lower back pain Time Seen by Provider: 07/26/25 13:31 Source: patient History of Present Illness HPI Narrative: 74-year-old female female with history of longstanding depression states that she feels like her depression is getting worse had a low-impact accidental fall 2 days ago where she hit her lower spine no head injury no loss of consciousness patient ambulating with no difficulty no restriction in range of motion. Patient denies any SI HI, auditory or visual hallucinations, just presenting by herself because she says ?my 's empathy meter is low?. Patient is slightly tearful but does not have any plan to hurt herself at home. Related Data Home Medications ?Medication ?Instructions ?Recorded ?Confirmed modafinil 200 mg tablet 100 mg PO DAILY 12/18/22 06/22/25 clonazepam 0.5 mg tablet 0.5 mg PO PRN PRN Sleep 05/11/24 06/22/25 bupropion HCl 150 mg 24 hr tablet, 450 mg PO DAILY 05/16/25 06/22/25 extended release fluoxetine 20 mg capsule 20 mg PO DAILY 06/22/25 06/22/25 Previous Rx's ?Medication ?Instructions ?Recorded amlodipine 2.5 mg tablet 2.5 mg PO DAILY #90 tabs 08/31/24 escitalopram oxalate 20 mg tablet 20 mg PO DAILY #90 tabs 10/27/24 lisinopril 5 mg tablet 5 mg PO DAILY #90 tabs 12/14/24 levothyroxine 100 mcg tablet 100 mcg PO DAILY #90 tabs 12/19/24 rosuvastatin 10 mg tablet 10 mg PO DAILY #90 tabs 12/19/24 Parking Permit... #1 ea 12/21/24 solifenacin 10 mg tablet 10 mg PO DAILY #90 tabs 02/15/25 estradiol 0.01% (0.1 mg/gram) 1 g vaginal 2XW #42.5 grams 06/22/25 vaginal cream scopolamine base 1 mg over 3 days 1 patch transdermal Q3D PRN nausea 06/23/25 transdermal patch #10 ea Allergies Allergy/AdvReac Type Severity Reaction Status Date / Time erythromycin base Allergy Mild Rash Verified 07/26/25 13:35 meperidine AdvReac Mild Nausea Verified 07/26/25 13:35 Review of Systems Review of Systems ROS Unobtainable: All systems reviewed & are unremarkable except as noted in HPI and below Patient History Medical History Acquired hypothyroidism Age-related osteoporosis without current pathological fracture Cerebrovascular disease Chronic insomnia Chronic low back pain Colitis Depression, major, recurrent Essential hypertension Facet arthropathy, lumbar Gait abnormality Generalized anxiety disorder Hearing loss (~2015) Hip osteoarthritis History of colonic polyps History of urinary incontinence (~2020) Irritable bowel syndrome Left arm weakness Left cervical radiculopathy Lumbar disc disease Lumbar stenosis with neurogenic claudication Lymphocytic colitis Mixed hyperlipidemia Parkinson disease Right rotator cuff tear Scoliosis Urinary incontinence Surgical History History of bilateral breast implants History of facelift History of hip replacement History of toe surgery S/P cervical spinal fusion (01/23/25) S/P rotator cuff repair (~08/2023) Family History Father History of heart disease Hyperlipidemia Hypertension Mother Blood disorder Grandfather Stroke Rheumatoid arthritis Grandfather History of heart disease Hypertension Other Family history non-contributory Social History (Reviewed 09/26/22 @ 13:05 by Samanta Gallo [facility]) details: (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 Initial Vital Signs Initial Vital Signs: Vital Signs Temperature 98 F 07/26/25 13:35 Pulse Rate 78 07/26/25 13:35 Respiratory Rate 17 07/26/25 13:35 Blood Pressure 134/78 07/26/25 13:35 Pulse Oximetry 98 07/26/25 13:35 Oxygen Delivery Method Room Air 07/26/25 13:35 Course Orders Ordered: ED Orders 07/26/25 13:46 XR lumbar spine 2-3V Stat 07/26/25 13:52 Consult to STATION MANAGER - Gas System Operator Stat Discontinued Medications Lorazepam (Lorazepam 0.5 Mg Tablet) 0.5 mg PO NOW ONE Stop: 07/26/25 16:43 Last Admin: 07/26/25 17:13 Dose: 0.5 mg Documented By: ASHWIN Vital Signs Vital signs: Vital Signs - 8 hr 07/26/25 13:35 Temperature 98 F Pulse Rate 78 Respiratory Rate 17 Blood Pressure 134/78 Pulse Oximetry 98 Oxygen Delivery Method Room Air MDM - Back Pain/Injury MDM Narrative Medical decision making narrative: Pt presents with psychiatric illness/complaints. No indication psych placement as I considered but do not suspect acute SI/acute HI/grave disability/threat of harm to self or others. No ECG performed as I considered but do not suspect arrythmia. No CXR indicated as I considered but do not suspect pneumonia. No CT brain performed as I considered but do not suspect intracranial mass/organic neurological cause of pt's symptoms/condition. No bloodwork performed as I considered but do not suspect electrolyte abnl (hyponatremia, hypernatremia, hypokalemia, hyperkalemia, hyperglycemia, hypoglycemia)/drug poisoning/toxic ingestion (alcohol/asa/apap). No acute fracture on my interpretation of plain film of the lower spine. Radiology read pending at this time however patient desires to leave. Given that she can bear weight twists in all directions and has no neurologic symptoms, patient is stable for discharge. Patient has been seen by case management social worker. size worker agrees patient is stable for discharge with outpatient resources for housing and outpatient psychiatric resources as needed/accordingly. Will d/c w f/u outpt psych clinic in 1-3 days. Discharge Plan Departure Clinical Impression: Acute low back pain due to trauma, Passive suicidal ideations Instructions: DI for Suicidal Ideation-Adult Activity Restrictions/Additional Instructions: Please follow up with a psychiatrist as soon as possible. Return to the ED if you have thoughts of hurting yourself or others. Regresa a urgencias si tiene pensamientos de danarse, lastimar a otros, o cualquier malik. Please return if you have difficulty walking, bearing weight, moving the affected joint, worsening pain after tomorrow, a sudden loss of sensation, or if the affected area becomes cold. Please tack picker Arnica gel OTC for topical joint pain relief. Please take all prescribed medications including amlodipine and follow up with your PMD as soon as possible. Vuelve si tiene dolor emperando, falta de movimiento o sensacion de la articulacion o cualquier otra malik. Por favor, recoja gel de ?rnica de venta chandu (OTC) para el alivio t?sudhakar del dolor articular. Por favor, tome todos los medicamentos recetados, incluyendo amlodipino, y ole un seguimiento con ventura m?dico de atenci?n primaria (PRINCIPAL NETWORK ENGINEER) hernandez pronto irene sea posible.? Prescriptions: No Action lisinopril 5 mg tablet 5 mg PO DAILY Qty: 90 3RF rosuvastatin 10 mg tablet 10 mg PO DAILY Qty: 90 3RF levothyroxine 100 mcg tablet 100 mcg PO DAILY Qty: 90 3RF scopolamine base 1 mg over 3 days patch 3 day 1 patch transdermal Q3D PRN (Reason: nausea) Qty: 10 0RF modafinil 200 mg tablet 100 mg PO DAILY amlodipine 2.5 mg tablet 2.5 mg PO DAILY Qty: 90 3RF escitalopram oxalate 20 mg tablet 20 mg PO DAILY Qty: 90 3RF (DME) Parking Permit... See Rx Instructions .Route .MEDSUPPLY Qty: 1 0RF Rx Instructions: As directed solifenacin 10 mg tablet 10 mg PO DAILY Qty: 90 3RF bupropion HCl 150 mg tablet extended release 24 hr 450 mg PO DAILY fluoxetine 20 mg capsule 20 mg PO DAILY estradiol 0.01 % (0.1 mg/gram) cream 1 g vaginal 2XW Qty: 42.5 3RF clonazepam 0.5 mg tablet 0.5 mg PO PRN PRN (Reason: Sleep) Referrals: Nba Kessler MD [Primary Care Provider, Internal Medicine] Stand Alone Forms: Patient Portal/API
--- NOTE | 2025-07-26 18:10 | CM.SWNOTE ---
ED LICENSED PSYCHOLOGIST Assessment Note: Pt is a 74yo female, resident of [place], is admitted for anxiety and back pain after a fall. Pt lives in a house with . Pt's Primary Care Provider is Dr. Nba Kessler and insurance is Medicare and [employer]. Reviewed chart and discussed with multidisciplinary team pt's medical status and initial discharge needs. LICENSED PSYCHOLOGIST entered room to meet with patient, introduced self and role. Pt endorses feeling depressed for a few weeks, states she has not been able to get a hold of her depression although working with a pediatric psychologist at [facility] (ELOISE Wilson) and a telehealth counselor ([facility] in [place]) . Patient receieves weekly [facility] treatments at [facility]. She states she missed two weeks because she recently went on a cruise. Patient also states she just switched her medications from lorazepam to fluoxetine. She has been working with her occupational therapy aides teacher to stabilize. She does not feel inpatient treatment is necessary right now. Patient is tearful when discussing her recent diagnosis of Parkinson's Disease, she states she has loss a lot of independence with ADLs like getting dressed and bathing but her has been giving a lot of support and is primary caregiver. Pt declines home health discussion and states she does not feel a caregiver is necessary right now. Patient explains her stated today that her empathy tank is empty which made patient feel more hopeless about situation but understands her is just voicing her caregiver fatigue. LICENSED PSYCHOLOGIST initiated Todd Short Screener and pt identified as low risk, states she only has passive SI but no plan or intent. No previous attempts. LICENSED PSYCHOLOGIST provided Senior Resource guide and Parkinson's Support groups in the area for pt to review. LICENSED PSYCHOLOGIST reviews this with ED provider Dr. Kelly who indicates agreement and understanding. Plan: Pt to discharge home with spouse to transport, will follow up with occupational therapy aides teacher at [facility] and support groups provided. RA Mckeon
== END 2025-07-26 18:08 | disposition home or self-care (01) ==
PROVIDERS: Emergency Provider Emergency Medicine; Family Provider Internal Medicine; PCP Internal Medicine
DX: M54.50 Low back pain, unspecified (principal); R45.851 Suicidal ideations; W19.XXXA Unspecified fall, initial encounter
CPT/HCPCS: 72100; 99283